=== PATIENT | female | born 1960 | race Caucasian/White ===

== ENCOUNTER 2017-03-03 12:16 | Emergency (ER) | payer OTHER ==
[2017-03-03 12:22] VITALS: BP 155/78; PULSE 77; TEMP 97.9; BMI 34.7
--- NOTE | 2017-03-03 16:51 | PDOC ---
History of Present Illness - General Chief Complaint: Injury Stated Complaint: FALL/ SWOLLEN RT ARM Time Seen by Provider: 03/03/17 13:57 Past History - Past Medical History Allergies/Adverse Reactions: Allergies Allergy/AdvReac Type Severity Reaction Status Date / Time levofloxacin [From Levaquin] Allergy Severe Hives,blist Verified 03/03/17 12:22 ers Penicillins Allergy Severe hives,blist Verified 03/03/17 12:22 ers Sulfa (Sulfonamide Allergy Severe Hives,blist Verified 03/03/17 12:22 Antibiotics) ers Home Medications: Ambulatory Orders Alprazolam 1 mg PO TID PRN 08/07/16 Aspirin [Aspirin EC] 81 mg PO DAILY 08/07/16 Metformin HCl [Glucophage -] 500 mg PO DAILY 08/07/16 Metoprolol Succinate [Toprol Xl -] 25 mg PO DAILY 08/07/16 Lisinopril/Hydrochlorothiazide [Lisinopril-Hctz 20-12.5 mg Tab] 1 each PO DAILY 10/28/16 Methadone [Dolophine -] 26 mg PO DAILY@0600 MDD 1tab 10/28/16 Anemia: No Asthma: No Cancer: No Cardiac Disorders: Yes ([place]) CVA: Yes (2008 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) CHF: No Dementia: No Diabetes: Yes GI Disorders: No Disorders: No HTN: Yes Hypercholesterolemia: No Liver Disease: Yes (HEPATITIS C) Seizures: No Thyroid Disease: No - Surgical History Abdominal Surgery: No Appendectomy: No Cardiac Surgery: No Cholecystectomy: No Gastric Stapling: No GI Surgery: No Lung Surgery: No Neurologic Surgery: No Orthopedic Surgery: No - Immunization History Immunization Up to Date: Yes - Psycho/Social/Smoking Cessation Hx Anxiety: No Suicidal Ideation: No Smoking Status: Yes Smoking History: Current some day smoker Have you smoked in the past 12 months: Yes Number of Cigarettes Smoked Daily: 4 Cigars Per Day: 5 Information on smoking cessation initiated: Yes 'Breaking Loose' booklet given: 03/03/17 Hx Alcohol Use: No Drug/Substance Use Hx: No Substance Use Type: Alcohol Hx Substance Use Treatment: No *Physical Exam - Vital Signs Last Vital Signs Temp Pulse Resp BP Pulse Ox 97.9 F 77 18 155/78 97 03/03/17 12:19 03/03/17 12:19 03/03/17 12:19 03/03/17 12:19 03/03/17 12:19 *DC/Admit/Observation/Transfer Diagnosis at time of Disposition: Eloped - Discharge Dispostion Disposition: ELOPED - Referrals Referrals: Winston Trotter MD [Primary Care Provider] - - Patient Instructions - Post Discharge Activity
== END 2017-03-03 16:16 | disposition left against medical advice (07) ==
LOC: JER 12:16 → JERFT 12:16 → JER 16:16
DX: Z53.21 Procedure and treatment not carried out due to patient leaving prior to being seen by health care provider (principal)
CPT/HCPCS: 99281-25

== ENCOUNTER 2017-08-07 12:35 | Observation (INO) | payer OTHER ==
--- NOTE | 2017-08-07 13:04 | PDOC ---
History of Present Illness - General History Source: Patient Exam Limitations: No Limitations - History of Present Illness Initial Comments: 08/07/17 13:51 The patient is a 57 year old female, with significant past medical history of chronic sciatica, peripheral neuropathy, CVA (05/01/2017), AL (05/2016), and hypertension, who presents BIBA s/p overdose after ingesting the contents of a 50microgram fentanyl patch at 10:45 this morning. Her daughter found her unresponsive and called the ambulance. EMT administered 2 mg narcan intranasally in field. The patient explains that she had someone coming over to take a look at kittens that she had for sale, but had intense back pain. She did not have the patience to place the patch on her skin because she also had to shower before her guest arrived. She then drank the contents of the fentanyl patch (did not ingest the patch itself). She was given the fentanyl patch from her friend, it was not prescribed by a doctor. She notes that she felt diaphoretic and had 1 episode of bilious vomiting this morning prior to taking the fentanyl medication. At this moment she has some chest tightness. She states that these symptoms are similar to those she experienced in the past when she had an AL. Denies fever, chills, nausea, vomiting. Denies abdominal pain. Denies SOB. Allergies: Penicillin, sulfa, levofloxacin Social Hx: tobacco use. PCP: Dr. Winston Dickerson <Esther Chavez - Last Filed: 08/07/17 15:55> <Merle Vega - Last Filed: 08/07/17 16:08> - General Chief Complaint: Overdose Stated Complaint: OVERDOSE Time Seen by Provider: 08/07/17 12:56 Past History <Esther Chavez - Last Filed: 08/07/17 15:55> - Past Medical History Anemia: No Asthma: No Cancer: No Cardiac Disorders: Yes ([place]) CVA: Yes (2008 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) CHF: No Dementia: No Diabetes: Yes GI Disorders: No Disorders: No HTN: Yes Hypercholesterolemia: No Liver Disease: Yes (HEPATITIS C) Seizures: No Thyroid Disease: No - Surgical History Abdominal Surgery: No Appendectomy: No Cardiac Surgery: No Cholecystectomy: No Gastric Stapling: No GI Surgery: No Lung Surgery: No Neurologic Surgery: No Orthopedic Surgery: No - Immunization History Immunization Up to Date: Yes - Psycho/Social/Smoking Cessation Hx Anxiety: No Suicidal Ideation: No Smoking Status: Yes Smoking History: Current every day smoker Have you smoked in the past 12 months: Yes Number of Cigarettes Smoked Daily: 4 Cigars Per Day: 5 Information on smoking cessation initiated: No 'Breaking Loose' booklet given: 03/03/17 Hx Alcohol Use: No Drug/Substance Use Hx: No (denies) Substance Use Type: Alcohol Hx Substance Use Treatment: No <Merle Vega - Last Filed: 08/07/17 16:08> - Past Medical History Allergies/Adverse Reactions: Allergies Allergy/AdvReac Type Severity Reaction Status Date / Time levofloxacin [From Levaquin] Allergy Severe Hives,blist Verified 08/07/17 13:00 ers Penicillins Allergy Severe hives,blist Verified 08/07/17 13:00 ers Sulfa (Sulfonamide Allergy Severe Hives,blist Verified 08/07/17 13:00 Antibiotics) ers Home Medications: Ambulatory Orders Alprazolam 1 mg PO TID PRN 08/07/16 Aspirin [Aspirin EC] 81 mg PO DAILY 08/07/16 Metformin HCl [Glucophage -] 500 mg PO DAILY 08/07/16 Metoprolol Succinate [Toprol Xl -] 50 mg PO DAILY 08/07/16 Sertraline HCl [Zoloft -] 50 mg PO DAILY 08/07/17 Review of Systems - Review of Systems Able to Perform ROS?: Yes Comments:: 08/07/17 13:51 GENERAL/CONSTITUTIONAL: +sweats. No fever or chills. No weakness. HEAD, EYES, EARS, NOSE AND THROAT: No change in vision. No ear pain or discharge. No sore throat. GASTROINTESTINAL: +nausea, vomiting. No diarrhea or constipation. GENITOURINARY: No dysuria, frequency, or change in urination. CARDIOVASCULAR:+chest tightness. No shortness of breath. RESPIRATORY: No cough, wheezing, or hemoptysis. MUSCULOSKELETAL: No joint or muscle swelling or pain. No neck or back pain. SKIN: No rash NEUROLOGIC: +LOC. No headache, vertigo, or change in strength/sensation. ENDOCRINE: No increased thirst. No abnormal weight change. HEMATOLOGIC/LYMPHATIC: No anemia, easy bleeding, or history of blood clots. ALLERGIC/IMMUNOLOGIC: No hives or skin allergy. <Esther Chavez - Last Filed: 08/07/17 15:55> *Physical Exam - Vital Signs Last Vital Signs Temp Pulse Resp BP Pulse Ox 98.9 F 100 H 16 152/97 100 08/07/17 12:50 08/07/17 13:34 08/07/17 13:34 08/07/17 13:34 08/07/17 13:36 - Physical Exam Comments: 08/07/17 13:51 Constitutional: Awake, alert, oriented. No acute distress. Head: Normocephalic. Atraumatic Eyes: PERRL. EOMI. Conjunctivae are not pale. ENT: Mucous membranes are moist and intact. Posterior pharynx without exudates or erythema. Uvula midline. Neck: Supple. Full ROM. No lymphadenopathy. Cardiovascular: +tachycardic. Regular rhythm. S1, S2 regular. Distal pulses are 2+ and symmetric. Pulmonary/Chest: No evidence of respiratory distress. Clear to auscultation bilaterally No wheezing, rales or rhonchi. Abdominal: Soft and non-distended. There is no tenderness. No rebound, guarding or rigidity. No organomegaly. No palpable masses. Good bowel sounds. Back: No CVA tenderness. Musculoskeletal: No edema. No cyanosis. No clubbing. Full range of motion in all extremities. Nocalf tenderness. Radial/pedal pulses are intact and 2+ bilaterally Skin: +diaphoretic. Skin is warm. No petechiae. No purpura. Neurological: Alert and oriented to person, place, and time. Cranial nerves II -XII are grossly intact. Normal speech. Strength is grossly symmetric. No sensory deficits. Psychiatric: Good eye contact. Normal interaction, affect and behavior. <Esther Chavez - Last Filed: 08/07/17 15:55> - Vital Signs Last Vital Signs Temp Pulse Resp BP Pulse Ox 98.9 F 110 H 18 158/101 95 08/07/17 12:50 08/07/17 12:50 08/07/17 12:50 08/07/17 12:50 08/07/17 12:50 <Merle Vega - Last Filed: 08/07/17 16:08> Heart Score/ECG Review - History History: Moderately suspicious - Electrocardiogram EKG: Normal - Age Age: 45-65 - Risk Factors Risk Factors Heart Score: Yes Hx Hypertension, Yes Hx Diabetes Based on the list above the patient has:: >/=3 risk factors or Hx atherosclerotic disease - Troponin Troponin: </= normal limit - Score Heart Score - Total: 4 - ECG Intrepretation Comment:: 08/07/17 15:09 sinus tach at 108, nl axis, nl interval, qrs 106, qtc 482, no acute st/t wave findings <Merle Vega - Last Filed: 08/07/17 16:08> ED Treatment Course - LABORATORY CBC & Chemistry Diagram: 08/07/17 13:23 08/07/17 13:23 - ADDITIONAL ORDERS Additional order review: 08/07/17 13:23 RBC 4.47 MCV 92.1 MCHC 33.4 RDW 13.7 MPV 7.8 Neutrophils % 79.3 D Lymphocytes % 13.2 D Monocytes % 7.0 Eosinophils % 0.2 D Basophils % 0.3 - RADIOLOGY Radiograph Interpretation: 08/07/17 14:15 EXAM#: TYPE/EXAM: RESULT: [id number] RAD/CHEST X-RAY PORTABLE* Chest: Shortness of breath. Since the prior exam of 06/17/2016, there is a less prominent mediastinum with clear lungs and sharp angles. The bones and soft tissues are intact. Impression: No acute pathology. Reported By: Pablo Savage MD 08/07/17 7758 - Medications Given in the ED: ED Medications Discontinued Medications Generic Name Dose Route Start Last Admin Trade Name Aleida PRN Reason Stop Dose Admin Ondansetron HCl 4 mg 08/07/17 13:10 08/07/17 13:34 Zofran Injection IVPUSH 08/07/17 13:11 4 mg ONCE ONE Administration Sodium Chloride 1,000 ml 08/07/17 13:10 08/07/17 13:33 Normal Saline - IV 08/07/17 13:11 1,000 ml ONCE ONE Administration <Esther Chavez - Last Filed: 08/07/17 15:55> - LABORATORY CBC & Chemistry Diagram: 08/07/17 13:23 08/07/17 13:23 <Merle Vega - Last Filed: 08/07/17 16:08> Medical Decision Making - Medical Decision Making 08/07/17 13:52 Poison control was called at 1:06pm Dr. Alexander Trammell. Dr. Vega spoke with the fellow, Dr. Trammell, regarding the patient's care. <Esther Chavez - Last Filed: 08/07/17 15:55> - Medical Decision Making 08/07/17 14:05 a/p: 57yo female with fentanyl OD -drank fluid from 50mcg/hr fentanyl patch -narcan given by medics -also with chest tightness and nausea this am, hx of cad -labs -ekg -cxr -monitor -prn narcan -will need at least 24 hour monitoring for resp suppression 08/07/17 14:07 re-eval: pt awake. tolerated activated charcoal. no further narcan needed at this time. will continue to monitor 08/07/17 15:08 re-eval: no cp at this time. pt sleepy but arousable. speaks with clear sentences. pupils 3mm. labs reviewed. will need admission for fentanyl od and cp. 08/07/17 15:08 dr. dickerson admits to [facility]. 08/07/17 16:08 case discussed with hospitalist, accepts admission to [facility]. pt updated on labs, imaging, ekg, pt agrees to stay for further eval. <Merle Vega - Last Filed: 08/07/17 16:08> *DC/Admit/Observation/Transfer <Esther Chavez - Last Filed: 08/07/17 15:55> - Discharge Dispostion Admit: Yes - Attestations Physician Attestion: 08/07/17 15:53 I, Dr. Merle Vega, DO, attest that this document has been prepared under my direction and personally reviewed by me in its entirety. I further attest, that it accurately reflects all work, treatment, procedures and medical decision -making performed by me. <Merle Vega - Last Filed: 08/07/17 16:08> Diagnosis at time of Disposition: Chest pain, Accidental fentanyl overdose - Discharge Dispostion Condition at time of disposition: Guarded - Referrals Referrals: Winston Dickerson MD [Primary Care Provider] -
[2017-08-07] MEDS ORDERED: NALOXONE HCL 0.4 MG/ML VIAL IVPUSH PRN (13:10)
[2017-08-07] MEDS ORDERED: ONDANSETRON 4 MG/2 ML VIAL IVPUSH ONE (13:10)
[2017-08-07] MEDS ORDERED: SODIUM CHLORIDE 0.9% 1000 ML INFUS.BAG IV ONE (13:10)
[2017-08-07] MEDS ORDERED: ONDANSETRON 4 MG/2 ML VIAL ONE ×2 (13:17→14:01)
[2017-08-07 13:38] LABS: BASOPHIL 0.3 % (0-2.0); EOSINOPHIL 0.2 % (0-4.5); MCH 30.8 pg (25.7-33.7); MCHC 33.4 g/dl (32.0-36.0); MEAN CELL VOLUME 92.1 fl (80-96); MEAN PLT VOLUME 7.8 fl (7.5-11.1); NEUTROPHILS 79.3 % (42.8-82.8); PLATELET COUNT 252 K/MM3 (134-434); RDW 13.7 % (11.6-15.6); WHITE BLOOD COUNT 15.4 K/mm3 (4.0-10.0)
[2017-08-07 13:49] LABS: INR 1.13 (0.82-1.09); PROTHROMBIN TIME (PATIENT) 12.5 SEC (9.98-11.88)
[2017-08-07 13:52] LABS: ACTIVATED PTT 27.9 SECONDS (26.9-34.4)
[2017-08-07] MEDS ORDERED: ACTIVATED CHARCOAL 260 MG CAPSULE PO ONE (13:55)
[2017-08-07] MEDS ORDERED: CHARCOAL/WATER SOLUTION 25 GM/120 ML TUBE ONE (14:00)
[2017-08-07 14:06] LABS: ALBUMIN 3.8 g/dl (3.4-5.0); ANION GAP 11 (8-16); BILIRUBIN,TOTAL 0.3 mg/dL (0.2-1.0); CALCIUM 9.2 mg/dL (8.5-10.1); CO2 25 mmol/L (21-32); CPK 83 IU/L (26-192); GLUCOSE,RANDOM 190 mg/dL (74-106); MAGNESIUM 2.1 mg/dL (1.8-2.4); SGOT/AST 11 U/L (15-37); SGPT/ALT 13 U/L (12-78); TOT PROT 7.6 g/dl (6.4-8.2)
[2017-08-07 14:09] LABS: ALK PHOS 80 U/L (45-117); TROPONIN I < 0.02 ng/ml (0.00-0.05)
[2017-08-07 14:24] LABS: SALICYLATE < 4.0 mg/dl (0.0-30.0)
[2017-08-07] MEDS ORDERED: ONDANSETRON 4 MG/2 ML VIAL IVPB PRN (16:46)
[2017-08-07] MEDS ORDERED: ALPRAZolam 2 MG TABLET PO PRN (16:53)
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
--- NOTE | 2017-08-07 17:02 | PN ---
Teaching Attending Note Name of Resident: Zaki Lopes ATTENDING PHYSICIAN STATEMENT I saw and evaluated the patient. I reviewed the resident's note and discussed the case with the resident. I agree with the resident's findings and plan as documented. SUBJECTIVE: OBJECTIVE: Last Vital Signs Temp Pulse Resp BP Pulse Ox 98.7 F 89 16 110/70 98 08/07/17 16:03 08/07/17 16:03 08/07/17 16:03 08/07/17 16:03 08/07/17 16:03 ASSESSMENT AND PLAN: The patient is a 57 year old female with significant past medical history of HTN , DM2, CAD, CVA (05/01/2017) and chronic pain secondary to sciatica and peripheral neuropathy, who presented to the emergency department after she ingested the contents of a 50microgram fentanyl patch at 10:45 this morning. She took the medication orally under the assumption that this was kevin correct way to use it. It was given to her by a friend. She denies suicide attempt. Her daughter found her unresponsive and called the ambulance. EMT administered 2 mg narcan intranasally in field. Prior to taking the medication she reported an episode of nausea, vomiting and diaphoresis. After regaining consciousness she reported mild chest pressure. # OVERDOSE She is fully awake and alert Ingested Fentanyl has a rapid onset and short duration Given the timing of the ingestion she is at low risk of further sedation Will monitor closely #Chest Pain EKG was non-ischemic 1st troponin negative GIven that she was found unresponsive, hypoxia prompting ACS is possible Will trend cardiac enzymes ASA Continue home meds See resident note for full details
[2017-08-07 19:25] LABS: URINE APPEARANCE SLCLOUDY; URINE BILIRUBIN NEGATIVE (NEGATIVE); URINE BLOOD 1+ (NEGATIVE); URINE COLOR YELLOW; URINE GLUCOSE (UA) NEGATIVE (NEGATIVE); URINE KETONE NEGATIVE (NEGATIVE); URINE LEUK ESTERASE NEGATIVE (NEGATIVE); URINE NITRITE NEGATIVE (NEGATIVE); URINE UROBILINOGEN NEGATIVE mg/dL (0.2-1.0)
[2017-08-07 19:41] LABS: URINE MARIJUANA THC NEGATIVE ng/ml (CUTOFF=50)
[2017-08-07 20:13] LABS: URINE PROTEIN 1+ (NEGATIVE)
[2017-08-07 20:14] LABS: URINE BACTERIA RARE /hpf (NONE SEEN); URINE HYALINE CAST 10 /lpf; URINE MUCUS FEW; URINE RBC 3 /hpf (0-3); URINE WBC 3 /hpf (3-5)
[2017-08-07] MEDS: INSULIN SLIDING SCALE (NOVOLOG) 1 VIAL SQ SCH (20:55)
[2017-08-07] MEDS: HYDROCHLOROTHIAZIDE 12.5 MG CAPSULE (FP) PO SCH (22:11)
[2017-08-07 22:26] VITALS: BMI 31.1
[2017-08-07] MEDS ORDERED: ACETAMINOPHEN 325 MG TABLET (FP) ONE (22:46)
[2017-08-07] MEDS: ACETAMINOPHEN 325 MG TABLET (FP) PO PRN (22:48)
[2017-08-08] MEDS: INSULIN SLIDING SCALE (NOVOLOG) 1 VIAL SQ SCH ×2 (06:06→11:00)
[2017-08-08] MEDS: ACETAMINOPHEN 325 MG TABLET (FP) PO PRN (06:36)
[2017-08-08 06:40] LABS: EOSINOPHIL 0.7 % (0-4.5); MCH 30.3 pg (25.7-33.7); MCHC 32.9 g/dl (32.0-36.0); MEAN CELL VOLUME 92.1 fl (80-96); NEUTROPHILS 59.3 % (42.8-82.8); PLATELET COUNT 218 K/MM3 (134-434); RDW 13.8 % (11.6-15.6); WHITE BLOOD COUNT 10.6 K/mm3 (4.0-10.0)
[2017-08-08 07:07] LABS: ALBUMIN 3.3 g/dl (3.4-5.0); ALK PHOS 68 U/L (45-117); ANION GAP 4 (8-16); BILIRUBIN,TOTAL 0.4 mg/dL (0.2-1.0); CALCIUM 9.2 mg/dL (8.5-10.1); CO2 30 mmol/L (21-32); CREATININE 0.8 mg/dL (0.55-1.02); GLUCOSE,RANDOM 137 mg/dL (74-106); MAGNESIUM 1.9 mg/dL (1.8-2.4); PHOSPHOROUS 3.3 mg/dL (2.5-4.9); SGOT/AST 9 U/L (15-37); SGPT/ALT 13 U/L (12-78); TOT PROT 6.7 g/dl (6.4-8.2)
--- NOTE | 2017-08-08 07:13 | PN ---
Physical Exam: SUBJECTIVE: Patient seen and examined She has had no further chest pain She wants to go home She reaffirms lack of suicidal ideation / attempt She will take tylenol 500-1000mg as needed for pain to a maximum of 4 times daily She has an appointment with her PCO for next week OBJECTIVE: Vital Signs Period Temp Pulse Resp BP Sys/Hernández Pulse Ox Last 24 Hr 98.3 F-98.7 F 73-89 16-18 110-144/70-85 97-100 Well appearing Lungs CTAB Heart RRR Abdomen soft and non-tender Extremities without edema Laboratory Results - last 24 hr 08/07/17 08/07/17 08/07/17 19:15 19:15 21:45 WBC RBC Hgb Hct MCV MCH MCHC RDW Plt Count MPV Neutrophils % Lymphocytes % Monocytes % Eosinophils % Basophils % Sodium Potassium Chloride Carbon Dioxide Anion Gap BUN Creatinine Creat Clearance w eGFR POC Glucometer Random Glucose Calcium Phosphorus Magnesium Total Bilirubin AST ALT Alkaline Phosphatase Troponin I 0.07 H Total Protein Albumin Urine Color Yellow Urine Appearance Slcloudy Urine pH 5.0 Ur Specific [place] >= 1.030 H Urine Protein 1+ H Urine Glucose (UA) Negative Urine Ketones Negative Urine Blood 1+ H Urine Nitrite Negative Urine Bilirubin Negative Urine Urobilinogen Negative Urine RBC 3 Urine WBC 3 Ur Epithelial Cells Rare Urine Bacteria Rare Hyaline Casts 10 Urine Mucus Few Urine HCG, Qual Negative Opiates Screen Negative Methadone Screen Negative Barbiturate Screen Negative Phencyclidine Screen Negative Ur Amphetamines Screen Negative MDMA (Ecstasy) Screen Negative Benzodiazepines Screen Positive Cocaine Screen Negative U Marijuana (THC) Screen Negative 08/08/17 08/08/17 08/08/17 03:00 05:58 06:15 WBC 10.6 H D RBC 4.11 Hgb 12.4 D Hct 37.8 MCV 92.1 MCH 30.3 MCHC 32.9 RDW 13.8 Plt Count 218 MPV 8.0 Neutrophils % 59.3 D Lymphocytes % 27.3 D Monocytes % 12.7 H D Eosinophils % 0.7 D Basophils % 0.0 Sodium Potassium Chloride Carbon Dioxide Anion Gap BUN Creatinine Creat Clearance w eGFR POC Glucometer 150 Random Glucose Calcium Phosphorus Magnesium Total Bilirubin AST ALT Alkaline Phosphatase Troponin I 0.06 H Total Protein Albumin Urine Color Urine Appearance Urine pH Ur Specific [place] Urine Protein Urine Glucose (UA) Urine Ketones Urine Blood Urine Nitrite Urine Bilirubin Urine Urobilinogen Urine RBC Urine WBC Ur Epithelial Cells Urine Bacteria Hyaline Casts Urine Mucus Urine HCG, Qual Opiates Screen Methadone Screen Barbiturate Screen Phencyclidine Screen Ur Amphetamines Screen MDMA (Ecstasy) Screen Benzodiazepines Screen Cocaine Screen U Marijuana (THC) Screen 08/08/17 06:15 WBC RBC Hgb Hct MCV MCH MCHC RDW Plt Count MPV Neutrophils % Lymphocytes % Monocytes % Eosinophils % Basophils % Sodium 138 Potassium 3.5 Chloride 104 Carbon Dioxide 30 Anion Gap 4 L BUN 6 L D Creatinine 0.8 Creat Clearance w eGFR > 60 POC Glucometer Random Glucose 137 H D Calcium 9.2 Phosphorus 3.3 Magnesium 1.9 Total Bilirubin 0.4 D AST 9 L ALT 13 Alkaline Phosphatase 68 Troponin I Total Protein 6.7 Albumin 3.3 L Urine Color Urine Appearance Urine pH Ur Specific [place] Urine Protein Urine Glucose (UA) Urine Ketones Urine Blood Urine Nitrite Urine Bilirubin Urine Urobilinogen Urine RBC Urine WBC Ur Epithelial Cells Urine Bacteria Hyaline Casts Urine Mucus Urine HCG, Qual Opiates Screen Methadone Screen Barbiturate Screen Phencyclidine Screen Ur Amphetamines Screen MDMA (Ecstasy) Screen Benzodiazepines Screen Cocaine Screen U Marijuana (THC) Screen Active Medications Generic Name Dose Route Start Last Admin Trade Name Freq PRN Reason Stop Dose Admin Acetaminophen 325 mg 08/07/17 22:40 08/08/17 06:36 Tylenol - PO 325 mg Q6H PRN Administration FEVER OR PAIN Alprazolam 1 mg 08/07/17 16:53 Xanax - PO TID PRN ANXIETY Aspirin 81 mg 08/08/17 10:00 Ecotrin - PO DAILY [facility] Hydrochlorothiazide 12.5 mg 08/07/17 22:00 08/07/17 22:11 Hctz - PO 12.5 mg BID GIULIA Administration Insulin Aspart 1 vial 08/07/17 17:15 08/08/17 06:06 Novolog Vial Sliding Scale - SQ Not Given TIDAC [facility] Protocol Lisinopril 20 mg 08/08/17 10:00 Prinivil PO DAILY [facility] Metoprolol Succinate 50 mg 08/08/17 10:00 Toprol Xl - PO DAILY GIULIA Naloxone HCl 0.4 mg 08/07/17 13:10 Narcan - IVPUSH Q5M PRN SHORTNESS OF BREATH Ondansetron HCl 4 mg 08/07/17 16:46 Zofran Injection IVPB Q6H PRN NAUSEA Sertraline HCl 50 mg 08/08/17 10:00 Zoloft - PO DAILY [facility] ASSESSMENT/PLAN: The patient is a 57 year old female with significant past medical history of HTN , DM2, CAD, CVA (05/01/2017) and chronic pain secondary to sciatica and peripheral neuropathy, who presented to the emergency department after she ingested the contents of a 50microgram fentanyl patch at 10:45 yesterday morning. # OVERDOSE She has remained fully awake and alert She continues to deny suicidal ideation/attempt #Chest Pain EKG was non-ischemic Enzymes trended negative #Disposition Anticipate discharge later today Visit type - Emergency Visit Emergency Visit: Yes ED Registration Date: 08/07/17 Care time: The patient presented to the Emergency Department on the above date and was hospitalized for further evaluation of their emergent condition. - New Patient This patient is new to me today: No - Critical Care Critical Care patient: No - Discharge Referral Referred to [facility] Med P.C.: No
--- NOTE | 2017-08-08 08:27 | DS ---
Physical Examination Vital Signs: Vital Signs Temperature 99.0 F 08/08/17 06:00 Pulse Rate 77 08/08/17 06:00 Respiratory Rate 18 08/08/17 06:00 Blood Pressure 116/79 08/08/17 06:00 O2 Sat by Pulse Oximetry (%) 97 08/07/17 22:09 Findings/Remarks: See todays progress note for details The patient is a 57 year old female who was admitted yesterday after a Fentanyl ingestion. She initially complained of chest pain. EKG was non-ischemic, serial cardiac enzymes were negative and she remained chest pain free She denied suicide attempt She was counseled about the appropriate use of medications She will resume her home medications and follow up with her PCP. Labs: CBC, BMP 08/08/17 06:15 08/08/17 06:15 Discharge Summary Reason For Visit: CHEST PAIN Current Active Problems Accidental fentanyl overdose (Acute) Anxiety with depression (Acute) CAD (coronary artery disease) (Acute) Chest pain (Acute) DVT prophylaxis (Acute) Condition: Stable - Instructions Diet, Activity, Other Instructions: Take you medications as prescribed Follow up with your doctor this week and make sure they review the results of your hospitalization Return to the ER if you develop any new symptoms Take medications only as prescribed Referrals: Winston Trotter MD [Primary Care Provider] - Disposition: HOME - Home Medications Comprehensive Discharge Medication List: Ambulatory Orders Alprazolam 1 mg PO TID PRN 08/07/16 Aspirin [Aspirin EC] 81 mg PO DAILY 08/07/16 Metformin HCl [Glucophage -] 500 mg PO DAILY 08/07/16 Metoprolol Succinate [Toprol Xl -] 50 mg PO DAILY 08/07/16 Hydrochlorothiazide [Hctz -] 12.5 mg PO BID 08/07/17 Lisinopril [Prinivil] 20 mg PO DAILY 08/07/17 Sertraline HCl [Zoloft -] 50 mg PO DAILY 08/07/17
[2017-08-08] MEDS: HYDROCHLOROTHIAZIDE 12.5 MG CAPSULE (FP) PO SCH (09:27)
[2017-08-08] MEDS ORDERED: METOPROLOL SUCCINATE 50 MG TAB.SR.24H (FP) PO SCH (10:00)
[2017-08-08] MEDS ORDERED: LISINOPRIL 20 MG TABLET (FP) PO SCH (10:00)
[2017-08-08] MEDS ORDERED: ASPIRIN COATED 81 MG TABLET.EC PO SCH (10:00)
[2017-08-08] MEDS ORDERED: SERTRALINE HCL 50 MG TABLET (FP) PO SCH (10:00)
[2017-08-08 10:50] VITALS: TEMP 98.3
[2017-08-08 11:56] VITALS: BP 115/59; PULSE 78
--- NOTE | 2017-08-09 16:41 | EKG ---
Test Reason : Blood Pressure : / mmHG Vent. Rate : 108 BPM Atrial Rate : 108 BPM P-R Int : 168 ms QRS Dur : 106 ms QT Int : 360 ms P-R-T Axes : 066 -25 058 degrees QTc Int : 482 ms SINUS TACHYCARDIA OTHERWISE NORMAL ECG WHEN COMPARED WITH ECG OF 16-JUN-2016 06:47, T WAVE INVERSION NO LONGER EVIDENT IN INFERIOR LEADS T WAVE INVERSION NO LONGER EVIDENT IN ANTEROLATERAL LEADS VENT. RATE HAS INCREASED Confirmed by KATELYNN SPARKS MD ([id number]) on 08/09/2017 4:40:44 PM Referred By: Confirmed By:KATELYNN SPARKS MD
== END 2017-08-08 12:02 | disposition home or self-care (01) ==
LOC: JER 12:35 → INTOOBSV 15:53 → UNDOADMOB 15:53 → JERBED 15:53 → J4S 20:47 → JERBED 20:47 → UNDODISOB 08-08 12:02
PROVIDERS: ADMIT Internal Medicine; ATTEND Internal Medicine
PROC: 3E033GC Introduction of Other Therapeutic Substance into Peripheral Vein, Percutaneous Approach (ICD-10-PCS; principal; 2017-08-08)
DX: T40.4X1A Poisoning by other synthetic narcotics, accidental (unintentional), initial encounter (principal); Y92.038 Other place in apartment as the place of occurrence of the external cause; I25.10 Atherosclerotic heart disease of native coronary artery without angina pectoris; I10 Essential (primary) hypertension; E11.9 Type 2 diabetes mellitus without complications; Z79.84 Long term (current) use of oral hypoglycemic drugs; M54.30 Sciatica, unspecified side; G62.9 Polyneuropathy, unspecified; B18.2 Chronic viral hepatitis C; Z86.73 Personal history of transient ischemic attack (TIA), and cerebral infarction without residual deficits; F17.210 Nicotine dependence, cigarettes, uncomplicated
CPT/HCPCS: 36415; 71010-TC; 80053; 80307; 81003; 81015; 83690; 83735; 83880; 84100; 84484; 84703; 85025; 85610; 85730; 93005; 93010; 99285-25; G0378

== ENCOUNTER 2017-12-14 17:48 | Observation (INO) | payer OTHER ==
--- NOTE | 2017-12-14 18:02 | PDOC ---
Attending Attestation - Resident Resident Name: Nevin Marino - ED Attending Attestation I have performed the following: I have examined & evaluated the patient, The case was reviewed & discussed with the resident, I agree w/resident's findings & plan, Exceptions are as noted - HPI HPI: 12/14/17 18:00 57 yo female found in passenger seat in car w seizure activity by first responders, When EMS arrived the pt was conversant but stating she didn't feel right. PMH CVA,Diabetes PCP Dr Fuentes - Physicial Exam PE: 12/14/17 18:02 wnwd 57 yo female BIBA for AMS and reported seizure activity upon arrival she seemed slow to respond to verbal inquiries but did respond with the correct in formation head ncat neck supple lungs ctab/l cvs [id number] abd nontender extremities no deformities neuro moving all extremities,no facial droop,conversant but with odd affect - Medical Decision Making 12/14/17 22:47 pt had witnessed complex seizure and was given ativan 1 mg IVP and loaded with keppra 12/15/17 02:21 pt ADMITTED
[2017-12-14 18:50] LABS: BASO % 0.5 % (0-2.0); EOS % 1.3 % (0-4.5); HEMATOCRIT 37.1 % (32.4-45.2); HEMOGLOBIN 11.7 GM/dL (10.7-15.3); LYMPH % 25.8 % (8-40); MCH 29.4 pg (25.7-33.7); MCHC 31.6 g/dl (32.0-36.0); MEAN CELL VOLUME 93.2 fl (80-96); MEAN PLT VOLUME 7.7 fl (7.5-11.1); MONO % 6.7 % (3.8-10.2); NEUT % 65.7 % (42.8-82.8); PLATELET COUNT 196 K/MM3 (134-434); RBC 3.98 M/mm3 (3.60-5.2); RDW 14.8 % (11.6-15.6); WHITE BLOOD COUNT 10.2 K/mm3 (4.0-10.0)
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
[2017-12-14 20:07] LABS: ALBUMIN 3.5 g/dl (3.4-5.0); ANION GAP 10 (8-16); BLOOD UREA NITROGEN 9 mg/dL (7-18); CALCIUM 8.8 mg/dL (8.5-10.1); CHLORIDE 105 mmol/L (98-107); CO2 26 mmol/L (21-32); GLUCOSE,RANDOM 157 mg/dL (74-106); POTASSIUM 4.1 mmol/L (3.5-5.1); SGPT/ALT 16 U/L (12-78); SODIUM 141 mmol/L (136-145)
[2017-12-14 20:13] LABS: ALK PHOS 65 U/L (45-117); BILIRUBIN,TOTAL 0.4 mg/dL (0.2-1.0); CREATININE 0.9 mg/dL (0.55-1.02); SGOT/AST 16 U/L (15-37); TOT PROT 7.1 g/dl (6.4-8.2)
[2017-12-14] MEDS ORDERED: SODIUM CHLORIDE 0.9% 1000 ML INFUS.BAG IV ONE (20:19)
[2017-12-14 22:12] LABS: BASO % 0.6 % (0-2.0); EOS % 0.7 % (0-4.5); HEMATOCRIT 39.6 % (32.4-45.2); HEMOGLOBIN 12.7 GM/dL (10.7-15.3); LYMPH % 23.1 % (8-40); MCH 30.6 pg (25.7-33.7); MCHC 32.2 g/dl (32.0-36.0); MEAN CELL VOLUME 95.1 fl (80-96); MEAN PLT VOLUME 8.1 fl (7.5-11.1); MONO % 6.4 % (3.8-10.2); NEUT % 69.2 % (42.8-82.8); PLATELET COUNT 195 K/MM3 (134-434); RBC 4.16 M/mm3 (3.60-5.2); RDW 15.2 % (11.6-15.6); WHITE BLOOD COUNT 9.3 K/mm3 (4.0-10.0)
[2017-12-14 22:20] LABS: ALBUMIN 3.7 g/dl (3.4-5.0); ALK PHOS 65 U/L (45-117); BLOOD UREA NITROGEN 8 mg/dL (7-18); CALCIUM 8.6 mg/dL (8.5-10.1); CO2 31 mmol/L (21-32); CREATININE 0.8 mg/dL (0.55-1.02); GLUCOSE,RANDOM 131 mg/dL (74-106); TOT PROT 7.2 g/dl (6.4-8.2)
[2017-12-14 22:23] LABS: URINE APPEARANCE CLEAR; URINE BILIRUBIN NEGATIVE (NEGATIVE); URINE BLOOD NEGATIVE (NEGATIVE); URINE COLOR LTYELLOW; URINE GLUCOSE (UA) NEGATIVE (NEGATIVE); URINE KETONE NEGATIVE (NEGATIVE); URINE LEUK ESTERASE NEGATIVE (NEGATIVE); URINE NITRITE NEGATIVE (NEGATIVE); URINE PROTEIN NEGATIVE (NEGATIVE); URINE UROBILINOGEN NEGATIVE mg/dL (0.2-1.0)
[2017-12-14 22:36] LABS: ANION GAP 6 (8-16); BILIRUBIN,TOTAL 0.2 mg/dL (0.2-1.0); CHLORIDE 104 mmol/L (98-107); POTASSIUM 4.5 mmol/L (3.5-5.1); SGOT/AST 14 U/L (15-37); SGPT/ALT 17 U/L (12-78); SODIUM 141 mmol/L (136-145)
[2017-12-14 22:37] LABS: URINE AMPHETAMINES NEGATIVE ng/ml (CUTOFF=500); URINE BARBITURATES NEGATIVE ng/ml (CUTOFF=200)
[2017-12-14 22:38] LABS: COCAINE, UR NEGATIVE ng/ml (CUTOFF=300); METHADONE, UR NEGATIVE ng/ml (CUTOFF=300); OPIATES, URI POSITIVE ng/ml (CUTOFF=300); PHENCYCLIDINE,URINE NEGATIVE ng/ml (CUTOFF=25); URINE BENZODIAZEPINES POSITIVE ng/ml (CUTOFF=200)
[2017-12-14] MEDS ORDERED: LORazepam 2 MG/ML SDV VIAL ONE (22:42)
[2017-12-14] MEDS ORDERED: levETIRAcetam 500 MG/5 ML INJECTION VIAL IVPB STA (22:44)
[2017-12-14] MEDS ORDERED: levETIRAcetam 500 MG/5 ML INJECTION VIAL IVPB ONE ×2 (22:47→22:48)
[2017-12-15] MEDS ORDERED: LORazepam 0.5 MG TABLET PO PRN (01:20)
[2017-12-15] MEDS: DEXTROSE 5%-0.45% SALINE 1,000 ML IV SCH (01:41)
[2017-12-15 07:27] LABS: ALBUMIN 3.5 g/dl (3.4-5.0); ANION GAP 7 (8-16); BLOOD UREA NITROGEN 7 mg/dL (7-18); CALCIUM 8.1 mg/dL (8.5-10.1); CHLORIDE 101 mmol/L (98-107); CO2 30 mmol/L (21-32); CREATININE 0.8 mg/dL (0.55-1.02); GLUCOSE,RANDOM 194 mg/dL (74-106); POTASSIUM 4.3 mmol/L (3.5-5.1); SGOT/AST 13 U/L (15-37); SGPT/ALT 15 U/L (12-78); SODIUM 138 mmol/L (136-145)
[2017-12-15 07:29] LABS: ALK PHOS 60 U/L (45-117); BILIRUBIN,TOTAL 0.3 mg/dL (0.2-1.0); TOT PROT 6.8 g/dl (6.4-8.2)
[2017-12-15] MEDS ORDERED: metFORMIN HCL 500 MG TABLET (FP) ONE (07:30)
[2017-12-15 07:34] LABS: BASO % 0.4 % (0-2.0); EOS % 0.2 % (0-4.5); HEMATOCRIT 35.4 % (32.4-45.2); HEMOGLOBIN 11.2 GM/dL (10.7-15.3); LYMPH % 19.5 % (8-40); MCH 29.6 pg (25.7-33.7); MCHC 31.5 g/dl (32.0-36.0); MEAN CELL VOLUME 93.9 fl (80-96); MONO % 9.2 % (3.8-10.2); NEUT % 70.7 % (42.8-82.8); PLATELET COUNT 180 K/MM3 (134-434); RBC 3.77 M/mm3 (3.60-5.2); RDW 14.8 % (11.6-15.6); WHITE BLOOD COUNT 9.4 K/mm3 (4.0-10.0)
[2017-12-15] MEDS: metFORMIN HCL 500 MG TABLET (FP) PO SCH (07:35)
[2017-12-15] MEDS ORDERED: METOPROLOL SUCCINATE 50 MG TAB.SR.24H (FP) ONE (10:06)
[2017-12-15] MEDS ORDERED: HYDROCHLOROTHIAZIDE 25 MG TABLET (FP) ONE (10:06)
[2017-12-15] MEDS ORDERED: LISINOPRIL 20 MG TABLET (FP) ONE (10:07)
[2017-12-15] MEDS ORDERED: ASPIRIN COATED 81 MG TABLET.EC ONE (10:07)
[2017-12-15] MEDS: METOPROLOL SUCCINATE 50 MG TAB.SR.24H (FP) PO SCH (10:12)
[2017-12-15] MEDS: LISINOPRIL 20 MG TABLET (FP) PO SCH (10:12)
[2017-12-15] MEDS: HYDROCHLOROTHIAZIDE 12.5 MG CAPSULE (FP) PO SCH ×2 (10:12→23:15)
[2017-12-15] MEDS: ASPIRIN COATED 81 MG TABLET.EC PO SCH (10:13)
--- NOTE | 2017-12-15 12:44 | EKG ---
Test Reason : Blood Pressure : / mmHG Vent. Rate : 093 BPM Atrial Rate : 093 BPM P-R Int : 150 ms QRS Dur : 106 ms QT Int : 382 ms P-R-T Axes : 066 022 056 degrees QTc Int : 474 ms NORMAL SINUS RHYTHM INCOMPLETE RIGHT BUNDLE BRANCH BLOCK BORDERLINE ECG WHEN COMPARED WITH ECG OF 07-AUG-2017 12:58, INCOMPLETE RIGHT BUNDLE BRANCH BLOCK IS NOW PRESENT Confirmed by JANY HERNÁNDEZ, HARRIET ([id number]) on 12/15/2017 12:43:22 PM Referred By: Confirmed By:HARRIET CARMICHAEL MD
[2017-12-15 13:12] VITALS: BMI 31.7
--- NOTE | 2017-12-15 15:21 | CONSULT ---
Consult - text type - Consultation Consultation Note: NEUROLOGY CONSULTATION is greatly appreciated: Events reviewed and patient examined in the ED @ 9:00. This 57 yo woman lives alone. PMH sig for HTN, DM, depression, anxiety and episodic headaches in the past with nausea and photophobia. On lisinopril, sertraline, metformin, HCTZ, metoprolol, and alprazolam (1 mg TID ). H/O a generalized seizure "in her 30's." Cannot recall any evaluation or Rx. Yesterday was driving home from shopping and had an unusual "out of body experience" which she had not previously experienced, but new she "had to get in the passenger seat." In fact, that is where she was found by police, lethargic and confused. Generalized tonic-clonic seizure was witnessed in the ED and the patient was given ativan and levetiracetam [address] of head (reviewed): reveals old right frontal encephalomalacia unchanged from prior CT's of 2016 and 2015. Suggesting old CVA Tox screen + for benzodiazepines AND Opioids FH is significant for seizures in her daughter (febrile and T/C as adult) and her 8 yo granddaughter and headaches in her daughter. BYRON: No head trauma. No bruits. Cor reg. Neck supple. NEURO: Sl sedated but Ox3. Normal speech. CN II-XII: Normal Motor: No drift or tremor. Normal strength , bulk tone and reflexes. Toes downdoing. Coord: No FTN dystaxia Sensory: Normal Gait: Deferred IMP: Normal exam Seizure disorder. Type uncertain. May be complex partial seizure with secondary generalization due to old right frontal lesion or a primarily generalized epilepsy as suggested by the + FH of seizures and association with migraines. SUGGEST: Continue levetiracetam 500 mg PO BID Agree with cardiac monitoring and cardiology evaluation Be surveillant for signs of benzodiazepine withdrawal (or continue chronic alprazolam Rx). MRI of the Brain (with and without contrast) Neuro f/u as out patient for EEG and monitdoring. Thank you very much, Alfonso Holt MD
--- NOTE | 2017-12-15 22:22 | HP ---
Admitting History and Physical - Admission History of Present Illness: Patient is a 57 y/o female with a PMH significant for HTN, diabetes, Hep C, CVA , depression and anxiety. Pt is unable to give clear details of events that happened. Pt remembers being in the car after shopping and next thing she knew the ambulance was there. She was BIBA for witnessed seizure. Passerby called 911 bc pt was unresponsive in the car. When the FD arrived it was reported that she was having a seizure. In the ER pt had ct scan head wc showed encephalomalacia. Pt's urine tox screen was positive for benzo's/opiods. - Past Medical History RECYCLER: Yes: Other (right optical embolic CVA with residual partial visual loss ) Cardiovascular: Yes: HTN Gastrointestinal: Yes: Diverticulosis Hepatobiliary: Yes: Hepatitis C Musculoskeletal: Yes: Chronic low back pain, Other (sciatica) Endocrine: Yes: Diabetes Mellitus - Past Surgical History Past Surgical History: Yes: Colonoscopy, Tonsillectomy - Smoking History Smoking history: Current every day smoker Have you smoked in the past 12 months: Yes Aproximately how many cigarettes per day: 4 - Alcohol/Substance Use Hx Alcohol Use: No History of Substance Use: reports: Heroin (snorted heroin in the past) - Social History ADL: Independent 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 History of Recent Travel: No Home Medications - Allergies Allergies/Adverse Reactions: Allergies Allergy/AdvReac Type Severity Reaction Status Date / Time levofloxacin [From Levaquin] Allergy Severe Hives,blist Verified 08/07/17 13:00 ers Penicillins Allergy Severe hives,blist Verified 08/07/17 13:00 ers Sulfa (Sulfonamide Allergy Severe Hives,blist Verified 08/07/17 13:00 Antibiotics) ers - Home Medications Home Medications: Ambulatory Orders Alprazolam 1 mg PO TID PRN 08/07/16 Aspirin [Aspirin EC] 81 mg PO DAILY 08/07/16 Metformin HCl [Glucophage -] 500 mg PO DAILY 08/07/16 Metoprolol Succinate [Toprol Xl -] 50 mg PO DAILY 08/07/16 Hydrochlorothiazide [Hctz -] 12.5 mg PO BID 08/07/17 Lisinopril [Prinivil] 20 mg PO DAILY 08/07/17 Sertraline HCl [Zoloft -] 50 mg PO DAILY 08/07/17 Family Disease History - Family Disease History Family History: Unremarkable Family Disease History: CA: Mother (d. ovarian cancer) Review of Systems - Review of Systems Constitutional: reports: No Symptoms Neck: reports: No Symptoms Cardiovascular: reports: No Symptoms Respiratory: reports: No Symptoms Gastrointestinal: reports: No Symptoms Physical Examination Vital Signs: Vital Signs Temperature 99.0 F 12/15/17 20:18 Pulse Rate 64 12/15/17 20:18 Respiratory Rate 18 12/15/17 20:18 Blood Pressure 96/49 12/15/17 20:18 O2 Sat by Pulse Oximetry (%) 99 12/15/17 20:18 Constitutional: Yes: No Distress Eyes: Yes: WNL HENT: Yes: WNL Neck: Yes: WNL, Supple Cardiovascular: Yes: WNL, Regular Rate and Rhythm Respiratory: Yes: WNL, Regular, CTA Bilaterally Gastrointestinal: Yes: WNL, Normal Bowel Sounds, Soft Musculoskeletal: Yes: WNL Extremities: Yes: WNL Edema: No Neurological: Yes: WNL, Alert, Oriented ...Motor Strength: WNL Labs: CBC, BMP 12/15/17 06:10 12/15/17 06:10 Problem List - Problems (1) Seizure Assessment/Plan: As per neuro Cont keppra MRI brain EEG as outpt as per neuro Code(s): R56.9 - UNSPECIFIED CONVULSIONS (2) Syncope Assessment/Plan: Due to seizure vs medications(urine positive for opoids/benzo) Cardio consult Check echo/carotid Pt does have h/o CVA Code(s): R55 - SYNCOPE AND COLLAPSE (3) Anxiety with depression Assessment/Plan: Psych consult Code(s): F41.8 - OTHER SPECIFIED ANXIETY DISORDERS (4) Diabetes type 2, controlled Assessment/Plan: Cont metformin Code(s): E11.9 - TYPE 2 DIABETES MELLITUS WITHOUT COMPLICATIONS Qualifiers: Diabetes mellitus complication status: with neurologic complications Diabetes mellitus complication detail: with autonomic neuropathy Diabetes mellitus retirement insulin use: without terminal carman use Qualified Code(s): E11.43 - Type 2 diabetes mellitus with diabetic autonomic (poly)neuropathy (5) Hepatitis C Code(s): B19.20 - UNSPECIFIED VIRAL HEPATITIS C WITHOUT HEPATIC COMA Qualifiers: Viral hepatitis chronicity: unspecified Hepatic coma status: without hepatic coma Qualified Code(s): B19.20 - Unspecified viral hepatitis C without hepatic coma (6) Hypertension Code(s): I10 - ESSENTIAL (PRIMARY) HYPERTENSION Qualifiers: Hypertension type: essential hypertension Qualified Code(s): I10 - Essential (primary) hypertension
[2017-12-16] MEDS: DEXTROSE 5%-0.45% SALINE 1,000 ML IV SCH (03:35)
[2017-12-16] MEDS: metFORMIN HCL 500 MG TABLET (FP) PO SCH (06:26)
[2017-12-16 07:50] LABS: BASO % 0.2 % (0-2.0); EOS % 0.6 % (0-4.5); HEMATOCRIT 33.9 % (32.4-45.2); HEMOGLOBIN 11.2 GM/dL (10.7-15.3); MCH 30.4 pg (25.7-33.7); MEAN CELL VOLUME 92.2 fl (80-96); MEAN PLT VOLUME 8.4 fl (7.5-11.1); MONO % 8.5 % (3.8-10.2); NEUT % 52.7 % (42.8-82.8); PLATELET COUNT 148 K/MM3 (134-434); RBC 3.68 M/mm3 (3.60-5.2); WHITE BLOOD COUNT 7.4 K/mm3 (4.0-10.0)
[2017-12-16 08:16] LABS: CHLORIDE 101 mmol/L (98-107); POTASSIUM 3.6 mmol/L (3.5-5.1); SODIUM 141 mmol/L (136-145)
[2017-12-16 08:23] LABS: ALBUMIN 3.3 g/dl (3.4-5.0); ALK PHOS 50 U/L (45-117); ANION GAP 7 (8-16); BILIRUBIN,TOTAL 0.5 mg/dL (0.2-1.0); BLOOD UREA NITROGEN 6 mg/dL (7-18); CALCIUM 8.1 mg/dL (8.5-10.1); CO2 33 mmol/L (21-32); CREATININE 0.7 mg/dL (0.55-1.02); GLUCOSE,RANDOM 87 mg/dL (74-106); SGOT/AST 11 U/L (15-37); SGPT/ALT 14 U/L (12-78); TOT PROT 6.4 g/dl (6.4-8.2)
--- NOTE | 2017-12-16 08:32 | CON.CARD ---
Cardiology Consult (text) - Consultation Consultation Note: Cardiology Consult Dictated IMP: 1. New onset seizures, witnessed 2. History of CVAs ( x2) 3. Factor V Leiden + (by patient report) 4. DM/HTN/Non-obstructive CAD 5. Mildly prolonged QTc (probably secondary to SSRI and opiates-- + in urine) REC: 1. Doubt arrhythmia, but prudent to observe on tele x 24 hours Keep K+ and Mg2+ normalized Avoid opiates. Monitor QTc Echo Carotid US 2. To complete Neuro eval including MRI brain. Thanks.
[2017-12-16] MEDS: ASPIRIN COATED 81 MG TABLET.EC PO SCH (09:45)
[2017-12-16] MEDS: LISINOPRIL 20 MG TABLET (FP) PO SCH (09:45)
[2017-12-16] MEDS: METOPROLOL SUCCINATE 50 MG TAB.SR.24H (FP) PO SCH (09:45)
[2017-12-16] MEDS: HYDROCHLOROTHIAZIDE 12.5 MG CAPSULE (FP) PO SCH ×2 (09:45→21:14)
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
--- NOTE | 2017-12-16 22:38 | PN ---
Progress Note, Physician History of Present Illness: No new complaints - Current Medication List Current Medications: Active Medications Aspirin (Ecotrin -) 81 mg PO DAILY [facility] Last Admin: 12/16/17 09:45 Dose: 81 mg Hydrochlorothiazide (Hctz -) 12.5 mg PO BID [facility] Last Admin: 12/16/17 21:14 Dose: 12.5 mg Dextrose/Sodium Chloride (D5-1/2ns -) 1,000 mls @ 75 mls/hr IV ASDIR [facility] Last Admin: 12/16/17 03:35 Dose: 75 mls/hr Lisinopril (Prinivil) 20 mg PO DAILY [facility] Last Admin: 12/16/17 09:45 Dose: 20 mg Lorazepam (Ativan -) 0.5 mg PO TID PRN PRN Reason: ANXIETY Metformin HCl (Glucophage -) 500 mg PO DAILY@0700 [facility] Last Admin: 12/16/17 06:26 Dose: 500 mg Metoprolol Succinate (Toprol Xl -) 50 mg PO DAILY [facility] Last Admin: 12/16/17 09:45 Dose: 50 mg - Objective Vital Signs: Vital Signs Temperature 98.0 F 12/16/17 17:00 Pulse Rate 60 12/16/17 17:00 Respiratory Rate 18 12/16/17 17:00 Blood Pressure 129/75 12/16/17 17:00 O2 Sat by Pulse Oximetry (%) 98 12/16/17 15:00 Constitutional: Yes: No Distress Neck: Yes: WNL, Supple Cardiovascular: Yes: WNL, Regular Rate and Rhythm Respiratory: Yes: WNL, Regular, CTA Bilaterally Gastrointestinal: Yes: WNL, Normal Bowel Sounds, Soft Labs: CBC, BMP 12/16/17 05:33 12/16/17 05:33 Problem List - Problems (1) Seizure Assessment/Plan: As per neuro Cont [facility] MRI brain pending and if normal then dc planning for am EEG as outpt as per neuro Code(s): R56.9 - UNSPECIFIED CONVULSIONS (2) Syncope Assessment/Plan: Due to seizure vs medications(urine positive for opoids/benzo) Work up has been negative Code(s): R55 - SYNCOPE AND COLLAPSE (3) Anxiety with depression Code(s): F41.8 - OTHER SPECIFIED ANXIETY DISORDERS (4) Diabetes type 2, controlled Code(s): E11.9 - TYPE 2 DIABETES MELLITUS WITHOUT COMPLICATIONS Qualifiers: Diabetes mellitus complication status: with neurologic complications Diabetes mellitus complication detail: with autonomic neuropathy Diabetes mellitus assisted insulin use: without assisted use Qualified Code(s): E11.43 - Type 2 diabetes mellitus with diabetic autonomic (poly)neuropathy (5) Hepatitis C Code(s): B19.20 - UNSPECIFIED VIRAL HEPATITIS C WITHOUT HEPATIC COMA Qualifiers: Viral hepatitis chronicity: unspecified Hepatic coma status: without hepatic coma Qualified Code(s): B19.20 - Unspecified viral hepatitis C without hepatic coma (6) Hypertension Code(s): I10 - ESSENTIAL (PRIMARY) HYPERTENSION Qualifiers: Hypertension type: essential hypertension Qualified Code(s): I10 - Essential (primary) hypertension
[2017-12-17] MEDS: metFORMIN HCL 500 MG TABLET (FP) PO SCH (06:38)
--- NOTE | 2017-12-17 08:44 | PN ---
Progress Note, Physician Chief Complaint: no new complaints MRI brain done, result pending TELE: NSR, periods sinus curtis during sleep - Current Medication List Current Medications: Active Medications Aspirin (Ecotrin -) 81 mg PO DAILY [facility] Last Admin: 12/16/17 09:45 Dose: 81 mg Hydrochlorothiazide (Hctz -) 12.5 mg PO BID [facility] Last Admin: 12/16/17 21:14 Dose: 12.5 mg Dextrose/Sodium Chloride (D5-1/2ns -) 1,000 mls @ 75 mls/hr IV ASDIR [facility] Last Admin: 12/16/17 03:35 Dose: 75 mls/hr Lisinopril (Prinivil) 20 mg PO DAILY [facility] Last Admin: 12/16/17 09:45 Dose: 20 mg Lorazepam (Ativan -) 0.5 mg PO TID PRN PRN Reason: ANXIETY Metformin HCl (Glucophage -) 500 mg PO DAILY@0700 [facility] Last Admin: 12/17/17 06:38 Dose: 500 mg Metoprolol Succinate (Toprol Xl -) 50 mg PO DAILY [facility] Last Admin: 12/16/17 09:45 Dose: 50 mg - Objective Vital Signs: Vital Signs Temperature 98.1 F 12/17/17 05:00 Pulse Rate 57 L 12/17/17 05:00 Respiratory Rate 20 12/17/17 05:00 Blood Pressure 104/54 12/17/17 05:00 O2 Sat by Pulse Oximetry (%) 97 12/17/17 05:49 Constitutional: Yes: Calm Eyes: Yes: Conjunctiva Clear Cardiovascular: Yes: Regular Rate and Rhythm Respiratory: Yes: CTA Bilaterally Gastrointestinal: Yes: Soft Edema: No Neurological: Yes: Alert, Oriented ...Motor Strength: WNL Labs: CBC, BMP 12/16/17 05:33 12/16/17 05:33 - ....Imaging Other: Image Reviewed Assessment/Plan IMP: 1. New onset seizures, witnessed 2. History of CVAs ( x2) 3. Factor V Leiden + (by patient report) 4. DM/HTN/Non-obstructive CAD 5. Mildly prolonged QTc (probably secondary to SSRI and opiates-- + in urine) REC: 1. No evidence of arrhythmia x 24 hours; d/c tele Keep K+ and Mg2+ normalized Avoid opiates. Monitor QTc Echo normal Carotid US basically normal 2. MRI brain pending
[2017-12-17] MEDS: ASPIRIN COATED 81 MG TABLET.EC PO SCH (09:06)
[2017-12-17] MEDS: HYDROCHLOROTHIAZIDE 12.5 MG CAPSULE (FP) PO SCH (09:06)
[2017-12-17] MEDS: LISINOPRIL 20 MG TABLET (FP) PO SCH (09:07)
[2017-12-17] MEDS: METOPROLOL SUCCINATE 50 MG TAB.SR.24H (FP) PO SCH (09:07)
--- NOTE | 2017-12-17 09:43 | EKG ---
Test Reason : Blood Pressure : / mmHG Vent. Rate : 069 BPM Atrial Rate : 069 BPM P-R Int : 168 ms QRS Dur : 104 ms QT Int : 434 ms P-R-T Axes : 025 -07 033 degrees QTc Int : 465 ms NORMAL SINUS RHYTHM INCOMPLETE RBBB WHEN COMPARED WITH ECG OF 14-DEC-2017 18:13, INCOMPLETE RIGHT BUNDLE BRANCH BLOCK IS NO LONGER PRESENT Confirmed by FAVIO SMITH MD ([id number]) on 12/17/2017 9:43:08 AM Referred By: Confirmed By:FAVIO SMITH MD
--- NOTE | 2017-12-17 12:46 | DS ---
Physical Exam: SUBJECTIVE: Patient seen and examined OBJECTIVE: Vital Signs Period Temp Pulse Resp BP Sys/Hernández Pulse Ox Last 24 Hr 98 F-98.8 F 57-62 18-20 104-129/54-75 97-98 PHYSICAL EXAM GENERAL: The patient is awake, alert, and fully oriented, in no acute distress. HEAD: Normal with no signs of trauma. EYES: PERRL, extraocular movements intact, sclera anicteric, conjunctiva clear. ENT: Ears normal, nares patent, oropharynx clear without exudates, moist mucous membranes. NECK: Trachea midline, full range of motion, supple. LUNGS: Breath sounds equal, clear to auscultation bilaterally, no wheezes, no crackles, no accessory muscle use. HEART: Regular rate and rhythm, S1, S2 without murmur, rub or gallop. ABDOMEN: Soft, nontender, nondistended, normoactive bowel sounds, no guarding, no rebound, no hepatosplenomegaly, no masses. EXTREMITIES: 2+ pulses, warm, well-perfused, no edema. NEUROLOGICAL: Cranial nerves II through XII grossly intact. Normal speech, gait not observed. PSYCH: Normal mood, normal affect. SKIN: Warm, dry, normal turgor, no rashes or lesions noted. LABS Laboratory Results - last 24 hr 12/17/17 06:37 POC Glucometer 115 HOSPITAL COURSE: Date of Admission:12/14/17 Date of Discharge: 12/17/17 Discharge Summary Reason For Visit: ALTERED MENTAL STATUS Current Active Problems Seizure (Acute) Syncope (Acute) Condition: Stable - Instructions Diet, Activity, Other Instructions: You may resume your usual activity and diet. You have been started on Keppra for seizures. Please take the medication twice a day. Please schedule an appointment to follow up with your PCP, Dr. Fuentes, next week. Please schedule an appointment the neurologist, Dr. Holt, for follow up and EEG. Referrals: Lindsey Fuentes [Staff Physician] - Disposition: HOME - Home Medications Comprehensive Discharge Medication List: Ambulatory Orders Alprazolam 1 mg PO TID PRN 08/07/16 Aspirin [Aspirin EC] 81 mg PO DAILY 08/07/16 Metformin HCl [Glucophage -] 500 mg PO DAILY 08/07/16 Metoprolol Succinate [Toprol XL -] 50 mg PO DAILY 08/07/16 Hydrochlorothiazide [Hctz -] 12.5 mg PO BID 08/07/17 Lisinopril [Prinivil] 20 mg PO DAILY 08/07/17 Sertraline HCl [Zoloft -] 50 mg PO DAILY 08/07/17 Levetiracetam [Keppra -] 500 mg PO BID #60 tablet 12/17/17 This patient is new to me today: Yes Date on this admission: 12/17/17 Emergency Visit: Yes ED Registration Date: 12/14/17 Care time: The patient presented to the Emergency Department on the above date and was hospitalized for further evaluation of their emergent condition. Critical Care patient: No - Discharge Referral Referred to [facility] No
[2017-12-17 13:24] VITALS: BP 117/48; PULSE 64; TEMP 98
== END 2017-12-17 14:06 | disposition home or self-care (01) ==
LOC: JER 17:48 → JERBED 22:54 → J4W 12-15 13:13
PROVIDERS: ADMIT Internal Medicine; ATTEND Internal Medicine
PROC: 3E033GC Introduction of Other Therapeutic Substance into Peripheral Vein, Percutaneous Approach (ICD-10-PCS; principal; 2017-12-14)
PROC: 3E0337Z Introduction of Electrolytic and Water Balance Substance into Peripheral Vein, Percutaneous Approach (ICD-10-PCS; 2017-12-14)
DX: R56.9 Unspecified convulsions (principal); R55 Syncope and collapse; F41.8 Other specified anxiety disorders; I10 Essential (primary) hypertension; I25.2 Old myocardial infarction; F17.210 Nicotine dependence, cigarettes, uncomplicated; E11.9 Type 2 diabetes mellitus without complications; B19.20 Unspecified viral hepatitis C without hepatic coma; Z86.73 Personal history of transient ischemic attack (TIA), and cerebral infarction without residual deficits; Z79.82 Long term (current) use of aspirin; Z79.84 Long term (current) use of oral hypoglycemic drugs; Z88.0 Allergy status to penicillin; Z88.1 Allergy status to other antibiotic agents; Z88.2 Allergy status to sulfonamides
CPT/HCPCS: 36415; 70450-TC; 70553-TC; 71046-TC; 80053; 80307; 81003; 82140; 82962; 83036; 85025; 93005; 93010; 93306-TC; 93880-TC; 96374; 99285-25; G0378

== ENCOUNTER 2018-02-01 11:01 | Inpatient (IN) | payer OTHER ==
[2018-02-01] MEDS ORDERED: NALOXONE HCL 0.4 MG/ML VIAL ONE ×3 (11:10→11:12)
[2018-02-01 11:13] VITALS: BMI 28.3
--- NOTE | 2018-02-01 11:20 | PDOC ---
Attending Attestation - HPI HPI: 02/01/18 14:03 The patient is a 57 year old female with history of hypertension, hyperlipidemia , DM, heroin abuse, who presents to the ED in heroin overdose. She was brought in by her daughter who found her slumped over in the car. Patient unresponsive on arrival and unable to provide remainder of history. Documentation prepared by Anna Rg, acting as medical sales representative for Lindsey Shaffer MD. <Anna Rg - Last Filed: 02/01/18 14:03> - Resident Resident Name: Aniket Ceron - ED Attending Attestation I have performed the following: I have examined & evaluated the patient, The case was reviewed & discussed with the resident, I agree w/resident's findings & plan, Exceptions are as noted - Physicial Exam PE: GENERAL: Lethargic, minimally responsive HEAD: No signs of trauma EYES: Pupils pinpoint and sluggishly reactive, EOMI, sclera anicteric, conjunctiva clear ENT: Auricles normal inspection, hearing grossly normal, oropharynx clear without exudates. Moist mucosa. Nasal mucosa +multiple areas with tissue breakdown. NECK: Normal ROM, supple, no lymphadenopathy, JVD, or masses LUNGS: Breath sounds equal, clear to auscultation bilaterally. No wheezes, and no crackles HEART: Regular rate and rhythm, normal S1 and S2, no murmurs, rubs or gallops ABDOMEN: Soft, normoactive bowel sounds. No guarding, no rebound. No masses EXTREMITIES: Normal range of motion, no edema. No clubbing or cyanosis. No cords, erythema, or tenderness NEUROLOGICAL: Limited by AMS. SKIN: Warm, Dry, normal turgor, no rashes or lesions noted. No track anand or skin lesions. - Medical Decision Making Patient presented altered, family reporting that she used to use heroin, stopped in March of 2017, may have relapsed. Patient was connected to monitor, started to desat to 50s, bagged up to 100% with BVM while awaiting narcan. Narcan was given with rapid response, improved mental status. Initially patient denied any drug use, but then admitted to using a "bag" of heroin today. She subsequently became lethargic again, requiring second dose of narcan to avoid hypoxia. Placed on narcan drip. Will admit to hospital. <Lindsey Shaffer - Last Filed: 02/01/18 14:40>
--- NOTE | 2018-02-01 11:20 | PDOC ---
History of Present Illness - General Chief Complaint: Overdose Stated Complaint: AMS Time Seen by Provider: 02/01/18 11:19 Past History - Past Medical History Allergies/Adverse Reactions: Allergies Allergy/AdvReac Type Severity Reaction Status Date / Time levofloxacin [From Levaquin] Allergy Severe Hives,blist Verified 02/01/18 11:10 ers Penicillins Allergy Severe hives,blist Verified 02/01/18 11:10 ers Sulfa (Sulfonamide Allergy Severe Hives,blist Verified 02/01/18 11:10 Antibiotics) ers Home Medications: Ambulatory Orders Alprazolam 1 mg PO TID PRN 08/07/16 Aspirin [Aspirin EC] 81 mg PO DAILY 08/07/16 Metoprolol Succinate [Toprol XL -] 50 mg PO DAILY 08/07/16 metFORMIN HCL [Glucophage -] 500 mg PO DAILY 08/07/16 Hydrochlorothiazide [Hctz -] 12.5 mg PO BID 08/07/17 Lisinopril [Prinivil] 20 mg PO DAILY 08/07/17 Sertraline HCl [Zoloft -] 50 mg PO DAILY 08/07/17 levETIRAcetam [Keppra -] 500 mg PO BID #60 tablet 12/17/17 Anemia: No Asthma: No Cancer: No Cardiac Disorders: Yes ([place]) CVA: Yes (2008 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) COPD: No CHF: No Dementia: No Diabetes: Yes GI Disorders: No Disorders: No HTN: Yes Hypercholesterolemia: No Liver Disease: Yes (HEPATITIS C-REMISSION) Seizures: No Thyroid Disease: No - Surgical History Abdominal Surgery: No Appendectomy: No Cardiac Surgery: No Cholecystectomy: No Gastric Stapling: No GI Surgery: No Lung Surgery: No Neurologic Surgery: No Orthopedic Surgery: No - Immunization History Immunization Up to Date: Yes - Suicide/Smoking/Psychosocial Hx Smoking Status: Yes Smoking History: Unknown if ever smoked Have you smoked in the past 12 months: Yes Number of Cigarettes Smoked Daily: 4 Cigars Per Day: 5 'Breaking Loose' booklet given: 08/07/17 Hx Alcohol Use: No Drug/Substance Use Hx: Yes Substance Use Type: Heroin, Opiates, Prescribed Hx Substance Use Treatment: Yes (METHADONE-FINISHED COURSE OF TREATMENT) *Physical Exam - Vital Signs Last Vital Signs Temp Pulse Resp BP Pulse Ox 99.5 F 110 H 14 106/84 02/01/18 11:05 02/01/18 11:05 02/01/18 11:05 02/01/18 11:05 *DC/Admit/Observation/Transfer - Referrals Referrals: Rhett Werner MD [Primary Care Provider] - - Patient Instructions - Post Discharge Activity
[2018-02-01] MEDS ORDERED: NALOXONE HCL 0.4 MG/ML VIAL IVPUSH ONE ×2 (11:21→12:04)
[2018-02-01] MEDS ORDERED: ONDANSETRON 4 MG/2 ML VIAL IVPUSH ONE (11:21)
--- NOTE | 2018-02-01 11:22 | PDOC ---
History of Present Illness - General Chief Complaint: Overdose Stated Complaint: AMS Time Seen by Provider: 02/01/18 11:19 - History of Present Illness Initial Comments: 02/01/18 12:07 The patient is a 57 year old female with a history of HTN, HLD, DM, Heroin Abuse who presents for evaluation of AMS and Lethargy. The patient is brought in by her daughter who found the patient slumped over in her car just prior to presentation. She notes that that patient was well this morning. The patient has a history of heroin abuse that she has noted to snort. The patient was unresponsive on presentation and ROS was unable to be obtained. Past History - Past Medical History Allergies/Adverse Reactions: Allergies Allergy/AdvReac Type Severity Reaction Status Date / Time levofloxacin [From Levaquin] Allergy Severe Hives,blist Verified 02/01/18 11:10 ers Penicillins Allergy Severe hives,blist Verified 02/01/18 11:10 ers Sulfa (Sulfonamide Allergy Severe Hives,blist Verified 02/01/18 11:10 Antibiotics) ers Home Medications: Ambulatory Orders Alprazolam 1 mg PO TID PRN 08/07/16 Aspirin [Aspirin EC] 81 mg PO DAILY 08/07/16 Metoprolol Succinate [Toprol XL -] 50 mg PO DAILY 08/07/16 metFORMIN HCL [Glucophage -] 500 mg PO DAILY 08/07/16 Hydrochlorothiazide [Hctz -] 12.5 mg PO BID 08/07/17 Lisinopril [Prinivil] 20 mg PO DAILY 08/07/17 Sertraline HCl [Zoloft -] 50 mg PO DAILY 08/07/17 levETIRAcetam [Keppra -] 500 mg PO BID #60 tablet 12/17/17 Anemia: No Asthma: No Cancer: No Cardiac Disorders: Yes ([place]) CVA: Yes (2008 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) COPD: No CHF: No Dementia: No Diabetes: Yes GI Disorders: No Disorders: No HTN: Yes Hypercholesterolemia: No Liver Disease: Yes (HEPATITIS C-REMISSION) Seizures: No Thyroid Disease: No - Surgical History Abdominal Surgery: No Appendectomy: No Cardiac Surgery: No Cholecystectomy: No Gastric Stapling: No GI Surgery: No Lung Surgery: No Neurologic Surgery: No Orthopedic Surgery: No - Immunization History Immunization Up to Date: Yes - Suicide/Smoking/Psychosocial Hx Smoking Status: Yes Smoking History: Unknown if ever smoked Have you smoked in the past 12 months: Yes Number of Cigarettes Smoked Daily: 4 Cigars Per Day: 5 'Breaking Loose' booklet given: 08/07/17 Hx Alcohol Use: No Drug/Substance Use Hx: Yes Substance Use Type: Heroin, Opiates, Prescribed Hx Substance Use Treatment: Yes (METHADONE-FINISHED COURSE OF TREATMENT) Review of Systems - Review of Systems Able to Perform ROS?: No (Unresponsive AMS) *Physical Exam - Vital Signs Last Vital Signs Temp Pulse Resp BP Pulse Ox 99.5 F 110 H 14 106/84 02/01/18 11:05 02/01/18 11:05 02/01/18 11:05 02/01/18 11:05 - Physical Exam Comments: 02/01/18 12:20 General Appearance: Nourished. No Apparent Distress HEENT: EOMI. Minimally reactive small pupils. Erythema noted within the nares. No Pharyngeal Erythema, Tonsillar Exudate, Tonsillar Erythema Neck: No Cervical Lymphadenopathy Respiratory/Chest: Lungs Clear, Shallow respirations. No Crackles, Rales, Rhonchi, Wheezing Cardiovascular: Regular Rhythm, Regular Rate. No Murmur, Gallops, Rubs Gastrointestinal/Abdominal: Normal Bowel Sounds, Soft. No Guarding, Rebound, Tenderness Musculoskeletal: No CVA Tenderness Extremity: Normal Capillary Refill Integumentary: Normal Color, Dry, Warm Neurologic: Minimally responsive and unable to accurately assess. Heart Score/ECG Review #1 ECG reviewed & interpreted by me at: 13:17 (Prolonged QT interval) General ECG Interpretation: Sinus Rhythm, Normal Rate, No acute ischemic changes ED Treatment Course - LABORATORY CBC & Chemistry Diagram: 02/01/18 11:28 02/01/18 11:28 Medical Decision Making - Medical Decision Making 02/01/18 11:25 The patient is a 57 year old female with a history of HTN, HLD, DM, Heroin Abuse who presents for evaluation of AMS and Lethargy. Patient presented with an O2 saturation in 55%. The patient was bag mask ventilated with her O2 sat rising to 100%. The patient symptoms were likely due to heroin overdose and she received 0.4mg of Narcan here in the ED with immediate response. The patient become responsive and verbal after receiving the narcan. She informed us that she snorted 1 bag of heroin today. She otherwise denies other symptoms. We will send a cbc, cmp, urine tox, ua, acetominophen and salycilate level to further evaluate. 02/01/18 12:28 Patient became more lethargic with her saturations dropping to the 60%. She was arousable to voice. Another 0.4mg of narcan was given with response. The patient will be placed on a narcan drip to help manage her overdose. 02/01/18 14:03 CBC demonstrates an elevated wbc. cmp, ua are unremarkable. U Tox demonstrates positive benzos and opiates. The patient will require ICU admission for further management. We discussed the case with Dr. Avery who accepted the patient for ICU admission. 02/01/18 14:32 We discussed the case with the admitting team who accepted the patient for admission. *DC/Admit/Observation/Transfer Diagnosis at time of Disposition: Heroin overdose Qualifiers: Encounter type: initial encounter Injury intent: accidental or unintentional Qualified Code(s): T40.1X1A - Poisoning by heroin, accidental (unintentional), initial encounter - Discharge Dispostion Condition at time of disposition: Critical Admit: Yes - Referrals Referrals: Rhett Werner MD [Staff Physician] - - Patient Instructions - Post Discharge Activity
[2018-02-01] MEDS ORDERED: ONDANSETRON 4 MG/2 ML VIAL ONE (11:26)
[2018-02-01 11:38] LABS: BASO % 0.8 % (0-2.0); EOS % 1.1 % (0-4.5); HEMOGLOBIN 11.8 GM/dL (10.7-15.3); LYMPH % 34.9 % (8-40); MCH 30.3 pg (25.7-33.7); MCHC 32.7 g/dl (32.0-36.0); MEAN CELL VOLUME 92.5 fl (80-96); MEAN PLT VOLUME 7.7 fl (7.5-11.1); MONO % 8.4 % (3.8-10.2); NEUT % 54.8 % (42.8-82.8); PLATELET COUNT 271 K/MM3 (134-434); RBC 3.89 M/mm3 (3.60-5.2); RDW 14.6 % (11.6-15.6); WHITE BLOOD COUNT 13.6 K/mm3 (4.0-10.0)
[2018-02-01 11:40] LABS: URINE APPEARANCE CLEAR; URINE BILIRUBIN NEGATIVE (NEGATIVE); URINE BLOOD NEGATIVE (NEGATIVE); URINE COLOR YELLOW; URINE GLUCOSE (UA) NEGATIVE (NEGATIVE); URINE KETONE TRACE (NEGATIVE); URINE LEUK ESTERASE NEGATIVE (NEGATIVE); URINE NITRITE NEGATIVE (NEGATIVE); URINE PROTEIN NEGATIVE (NEGATIVE); URINE UROBILINOGEN NEGATIVE mg/dL (0.2-1.0)
[2018-02-01] MEDS ORDERED: SODIUM CHLORIDE 1,000 ML IV STA (12:04)
[2018-02-01 12:05] LABS: ACETAMINOPHEN < 2.000 ug/mL; SALICYLATE < 1.700 mg/dL
[2018-02-01 12:06] LABS: ALBUMIN 3.5 g/dl (3.4-5.0); ANION GAP 9 (8-16); BLOOD UREA NITROGEN 6 mg/dL (7-18); CALCIUM 8.3 mg/dL (8.5-10.1); CHLORIDE 102 mmol/L (98-107); CO2 28 mmol/L (21-32); CREATININE 0.9 mg/dL (0.55-1.02); GLUCOSE,RANDOM 143 mg/dL (74-106); POTASSIUM 4.1 mmol/L (3.5-5.1); SGOT/AST 34 U/L (15-37); SGPT/ALT 16 U/L (12-78); SODIUM 139 mmol/L (136-145)
[2018-02-01 12:08] LABS: ALK PHOS 55 U/L (45-117); BILIRUBIN,TOTAL 0.3 mg/dL (0.2-1.0); TOT PROT 6.7 g/dl (6.4-8.2)
[2018-02-01] MEDS ORDERED: NALOXONE HCL 2 MG in DEXTROSE 5%-WATER - 495 ML IV SCH (12:15)
[2018-02-01 12:28] LABS: COCAINE, UR NEGATIVE ng/ml (CUTOFF=300); METHADONE, UR NEGATIVE ng/ml (CUTOFF=300); PHENCYCLIDINE,URINE NEGATIVE ng/ml (CUTOFF=25); URINE AMPHETAMINES NEGATIVE ng/ml (CUTOFF=500); URINE BARBITURATES NEGATIVE ng/ml (CUTOFF=200)
[2018-02-01 12:29] LABS: OPIATES, URI POSITIVE ng/ml (CUTOFF=300); URINE BENZODIAZEPINES POSITIVE ng/ml (CUTOFF=200)
[2018-02-01] MEDS ORDERED: SODIUM CHLORIDE 1,000 ML IV SCH (14:30)
[2018-02-01] MEDS ORDERED: METOPROLOL TARTRATE 5 MG/5 ML VIAL IVPUSH PRN (14:33)
[2018-02-01] MEDS ORDERED: DEXTROSE 50%-WATER - 25 GM/50 ML VIAL IVPUSH PRN (15:36)
--- NOTE | 2018-02-01 15:55 | PN ---
Teaching Attending Note Name of Resident: Concepción Salinas ATTENDING PHYSICIAN STATEMENT I saw and evaluated the patient. I reviewed the resident's note and discussed the case with the resident. I agree with the resident's findings and plan as documented. SUBJECTIVE: Pt seen and examined in the ICU with the resident. Briefly, 57yo female with h/ o HTN, hypercholesterolemia, DM, CAD, h/o CVA, heroin use who was brought in after being found slumped over in her car. Reports using 2 bags of heroin intranasally. Given narcan with improvement in mental status but became hypoxic and altered requiring a narcan gtt, transferred to the ICU for further monitoring. Reports some nausea earlier but has since resolved. No shortness of breath or chest pain. No fevers, chills or sweats. Some left posterior hip/ flank discomfort. She uses heroin intermittently, last use before today was last week. She was previously on methadone maintenance tapered off 1 year ago, does not wish to resume therapy. OBJECTIVE: Last Vital Signs Temp Pulse Resp BP Pulse Ox 99.5 F 85 16 124/78 100 02/01/18 14:58 02/01/18 14:58 02/01/18 14:58 02/01/18 14:58 02/01/18 14:58 Intake & Output 01/29/18 01/30/18 01/31/18 02/01/18 22:59 23:59 23:59 23:59 Weight 72.575 kg Gen: NAD at rest Heart: RRR Lung: decreased breath sounds at the bases Abd: soft, nontender Ext: no edema CBC, BMP 02/01/18 11:28 02/01/18 11:28 Active Medications Aspirin (Ecotrin -) 81 mg PO DAILY [facility] Chlorhexidine Gluconate (Hibiclens For Decolonization -) 1 applic TP HS [facility] Dextrose (D50w (Vial) -) 25 gm IVPUSH PRN PRN PRN Reason: hypoglycemia Heparin Sodium (Porcine) (Heparin -) 5,000 unit SQ BID [facility] Hydrochlorothiazide (Hctz -) 12.5 mg PO BID [facility] Naloxone HCl 2 mg/ Dextrose 500 mls @ 100 mls/hr IV TITR [facility]; 0.4 MG/HR PRN Reason: Protocol Last Admin: 02/01/18 13:04 Dose: 0.4 mg/hr, 100 mls/hr Sodium Chloride (Normal Saline -) 1,000 mls @ 50 mls/hr IV ASDIR [facility] Stop: 02/02/18 14:28 Insulin Aspart (Novolog Vial Sliding Scale -) 1 vial SQ ACHS [facility] PRN Reason: Protocol Levetiracetam (Keppra -) 500 mg PO BID [facility] Metoprolol Tartrate (Lopressor Injection -) 5 mg IVPUSH Q4H PRN PRN Reason: HYPERTENSION Mupirocin (Bactroban Ointment (For Decolonization) -) 1 applic NS BID [facility] Stop: 02/06/18 21:59 Sertraline HCl (Zoloft -) 50 mg PO DAILY [facility] ASSESSMENT AND PLAN: Acute Hypoxic Respiratory Failure Heroin Overdose HTN DM Hypercholesterolemia - can d/c narcan gtt - does not wish to detox or go back on maintenance therapy - continue home meds - can transfer to floor once off narcan gtt - DVT prophylaxis
--- NOTE | 2018-02-01 16:24 | EKG ---
Test Reason : Blood Pressure : / mmHG Vent. Rate : 080 BPM Atrial Rate : 080 BPM P-R Int : 164 ms QRS Dur : 106 ms QT Int : 436 ms P-R-T Axes : 060 003 024 degrees QTc Int : 502 ms NORMAL SINUS RHYTHM PROLONGED QT ABNORMAL ECG WHEN COMPARED WITH ECG OF 17-DEC-2017 09:28, NO SIGNIFICANT CHANGE WAS FOUND Confirmed by MD DEANA, MARYLOU ([id number]) on 02/01/2018 4:24:16 PM Referred By: Confirmed By:MARYLOU LEBLANC MD
--- NOTE | 2018-02-01 16:28 | CONSULT ---
Consultation: REQUESTING PROVIDER: CONSULT REQUEST: We have been asked to medically evaluate this patient s/p heroin overdose. HISTORY OF PRESENT ILLNESS: 57F with PMH of CVA x 2, CAD, htn, hld, DM, heroin abuse, presents s/p heroin overdose. Pt reports taking 2 bags of heroin this morning (10:15am) via inhalation, though she usually takes 1 bag. Last use 1 week ago, pt reports intermittent use. Pt was found by daughter slumped over in car, not breathing. Pt improved after Narcan, but pt became hypoxic and was transferred to ICU for further monitoring. Pt reports nausea, resolved now. Pt weaned self off methadone 1 yr ago, and declines Detox/Rehab Consult at this time. Pt reports seizure 3 weeks ago, first in her life, and needing to f/u with a brain scan. Pt denies fever, chills, nausea, vomiting, headache, chest pain, sob, depression. SOCIAL HX: Tobacco: down to 1 cigarette daily Drugs: heroin only, weaned off methadone 1 yr ago Alcohol: denies Lives: with daughter and granddaughter FAMILY HX: mom of Ovarian cancer REVIEW OF SYSTEMS: CONSTITUTIONAL: Absent: fever, chills, diaphoresis, generalized weakness HEENT: Absent: rhinorrhea, nasal congestion, ear pain, eye pain, visual changes CARDIOVASCULAR: Absent: chest pain, palpitations, irregular heart rate, lightheadedness, peripheral edema RESPIRATORY: Absent: cough, shortness of breath, wheezing, stridor, hemoptysis GASTROINTESTINAL: Absent: abdominal pain, abdominal distension, nausea, vomiting, diarrhea, constipation GENITOURINARY: Left hip/flank pain Absent: dysuria, frequency, urgency, hesitancy, hematuria MUSCULOSKELETAL: Absent: myalgia, arthralgia, joint swelling, back pain, neck pain SKIN: Absent: rash, itching, pallor NEUROLOGIC: Absent: headache, focal weakness or paresthesias, dizziness PSYCHIATRIC: Absent: anxiety, depression, suicidal or homicidal ideation, hallucinations. PHYSICAL EXAMINATION Vital Signs - 24 hr 02/01/18 02/01/18 02/01/18 11:05 11:25 11:30 Temperature 99.5 F Pulse Rate 110 H Pulse Rate [ Radial] Respiratory 14 14 Rate Blood Pressure 106/84 Blood Pressure [Right Arm] O2 Sat by Pulse 100 100 Oximetry (%) 02/01/18 02/01/18 13:20 14:58 Temperature 99.5 F Pulse Rate Pulse Rate [ 80 85 Radial] Respiratory 16 16 Rate Blood Pressure Blood Pressure 103/65 124/78 [Right Arm] O2 Sat by Pulse 100 100 Oximetry (%) GENERAL: Awake, alert, and fully oriented, in no acute distress. HEAD: Normal with no signs of trauma. EYES: Extraocular movements intact, sclera anicteric, conjunctiva clear. No lid lag. EARS, NOSE, THROAT: Moist mucous membranes. NECK: Supple without lymphadenopathy, JVD, or masses. LUNGS: Breath sounds equal, clear to auscultation bilaterally. No wheezes, and no crackles. No accessory muscle use. HEART: Regular rate and rhythm, normal S1 and S2 without murmur, rub or gallop. ABDOMEN: Soft, nontender, not distended, no guarding. MUSCULOSKELETAL: Normal range of motion at all joints. No bony deformities or tenderness. No CVA tenderness. LOWER EXTREMITIES: Warm, well-perfused. No calf tenderness. No peripheral edema. NEUROLOGICAL: Cranial nerves II-XII grossly intact. Normal speech. No facial droop. PSYCHIATRIC: Cooperative. Good eye contact. Appropriate mood and affect. SKIN: Warm, dry, normal turgor, no rashes or lesions noted. Laboratory Results - last 24 hr 02/01/18 02/01/18 02/01/18 11:08 11:28 11:28 WBC RBC Hgb Hct MCV MCH MCHC RDW Plt Count MPV Neutrophils % Lymphocytes % Monocytes % Eosinophils % Basophils % Sodium Potassium Chloride Carbon Dioxide Anion Gap BUN Creatinine Creat Clearance w eGFR POC Glucometer [phone] Random Glucose Calcium Total Bilirubin AST ALT Alkaline Phosphatase Total Protein Albumin Urine Color Yellow Urine Appearance Clear Urine pH 7.0 D Ur Specific [place] 1.015 Urine Protein Negative Urine Glucose (UA) Negative Urine Ketones Trace H Urine Blood Negative Urine Nitrite Negative Urine Bilirubin Negative Urine Urobilinogen Negative Ur Leukocyte Esterase Negative Salicylates < 1.700 Opiates Screen Methadone Screen Acetaminophen < 2.000 Barbiturate Screen Phencyclidine Screen Ur Amphetamines Screen MDMA (Ecstasy) Screen Benzodiazepines Screen Cocaine Screen U Marijuana (THC) Screen 02/01/18 02/01/18 02/01/18 11:28 11:28 11:28 WBC 13.6 H D RBC 3.89 Hgb 11.8 Hct 36.0 MCV 92.5 MCH 30.3 MCHC 32.7 RDW 14.6 Plt Count 271 D MPV 7.7 Neutrophils % 54.8 Lymphocytes % 34.9 Monocytes % 8.4 Eosinophils % 1.1 D Basophils % 0.8 D Sodium 139 Potassium 4.1 Chloride 102 Carbon Dioxide 28 Anion Gap 9 BUN 6 L Creatinine 0.9 Creat Clearance w eGFR > 60 POC Glucometer Random Glucose 143 H Calcium 8.3 L Total Bilirubin 0.3 D AST 34 ALT 16 Alkaline Phosphatase 55 Total Protein 6.7 Albumin 3.5 Urine Color Urine Appearance Urine pH Ur Specific [place] Urine Protein Urine Glucose (UA) Urine Ketones Urine Blood Urine Nitrite Urine Bilirubin Urine Urobilinogen Ur Leukocyte Esterase Salicylates Opiates Screen Positive Methadone Screen Negative Acetaminophen Barbiturate Screen Negative Phencyclidine Screen Negative Ur Amphetamines Screen Negative MDMA (Ecstasy) Screen Negative Benzodiazepines Screen Positive Cocaine Screen Negative U Marijuana (THC) Screen Negative Active Medications Generic Name Dose Route Start Last Admin Trade Name Freq PRN Reason Stop Dose Admin Aspirin 81 mg 02/02/18 10:00 Ecotrin - PO DAILY GIULIA Chlorhexidine Gluconate 1 applic 02/01/18 22:00 Hibiclens For Decolonization - TP HS GIULIA Dextrose 25 gm 02/01/18 15:36 D50w (Vial) - IVPUSH PRN PRN hypoglycemia Heparin Sodium (Porcine) 5,000 unit 02/01/18 22:00 Heparin - SQ BID GIULIA Hydrochlorothiazide 12.5 mg 02/01/18 22:00 Hctz - PO BID GIULIA Naloxone HCl 2 mg/ Dextrose 500 mls @ 100 mls/hr 02/01/18 12:15 02/01/18 13: 04 IV 0.4 mg/hr TITR GIULIA 100 mls/hr Protocol Administration 0.4 MG/HR Sodium Chloride 1,000 mls @ 50 mls/hr 02/01/18 14:30 Normal Saline - IV 02/02/18 14:28 ASDIR GIULIA Insulin Aspart 1 vial 02/01/18 16:30 Novolog Vial Sliding Scale - SQ ACHS GIULIA Protocol Levetiracetam 500 mg 02/01/18 22:00 Keppra - PO BID GIULIA Metoprolol Tartrate 5 mg 02/01/18 14:33 Lopressor Injection - IVPUSH Q4H PRN HYPERTENSION Mupirocin 1 applic 02/01/18 22:00 Bactroban Ointment (For Decolonization) - NS 02/06/18 21:59 BID GIULIA Sertraline HCl 50 mg 02/02/18 10:00 Zoloft - PO DAILY GIULIA IMAGIN02/01/18 CXR -> some congestive changes ASSESSMENT/PLAN: 57F with PMH of CVA x 2, CAD, htn, hld, DM, heroin abuse, presents s/p heroin overdose. # heroin overdose - Narcan drip D/Logan -> can transfer to floors - monitor for s/s of withdrawal - COWS = 0 - pt declines Detox/Rehab Consult at this time. Pt does not wish to resume methadone maintenance therapy at this time. # acute hypoxic respiratory failure - primary team to f/u CXR - O2 prn # dm - BGMs - SSI - primary team to f/u [id number] - hold oral meds # htn - continue HCTZ - not hypertensive at this time, can resume home meds as needed # FEN - Fluids: NS @ 50 ml/hr - Electrolytes: wnl - Nutrition: diabetic diet # Prophylaxis - DVT ppx with Heparin BID Dispo: We will continue to follow the patient. Thank you for this consultative opportunity. Visit type - Emergency Visit Emergency Visit: Yes ED Registration Date: 02/01/18 Care time: The patient presented to the Emergency Department on the above date and was hospitalized for further evaluation of their emergent condition. - New Patient This patient is new to me today: Yes Date on this admission: 02/01/18 - Critical Care Critical Care patient: Yes Total Critical Care Time (in minutes): 45 Critical Care Statement: The care of this patient involved high complexity decision making to prevent further life threatening deterioration of the patient 's condition and/or to evaluate & treat vital organ system(s) failure or risk of failure.
[2018-02-01] MEDS ORDERED: PNEUMOC 13-VAL CONJ-DIP CRM/PF 0.5 ML DISP.SYRIN IM ONE (17:00)
[2018-02-01] MEDS: INSULIN SLIDING SCALE (NOVOLOG) 1 VIAL SQ SCH ×2 (17:12→21:29)
[2018-02-01] MEDS: HYDROCHLOROTHIAZIDE 12.5 MG CAPSULE (FP) PO SCH (21:29)
[2018-02-01] MEDS: levETIRAcetam 500 MG TABLET (FP) PO SCH (21:34)
[2018-02-01] MEDS: MUPIROCIN 2% TOPICAL OINTMENT FOR DECOLONIZATION NS SCH (21:34)
[2018-02-01] MEDS: HEPARIN NA (PORCINE) 5,000 UNITS/ML 1ML VIAL SQ SCH (21:34)
[2018-02-01] MEDS ORDERED: CHLORHEXIDINE GLUCONATE 4% CLEANSER FOR DECOLONIZATION TP SCH (22:00)
[2018-02-02 05:55] LABS: BASO % 0.5 % (0-2.0); EOS % 1.8 % (0-4.5); HEMATOCRIT 32.9 % (32.4-45.2); LYMPH % 35.2 % (8-40); MCH 31.3 pg (25.7-33.7); MCHC 33.5 g/dl (32.0-36.0); MEAN CELL VOLUME 93.6 fl (80-96); MEAN PLT VOLUME 7.8 fl (7.5-11.1); MONO % 7.9 % (3.8-10.2); NEUT % 54.6 % (42.8-82.8); PLATELET COUNT 203 K/MM3 (134-434); RBC 3.51 M/mm3 (3.60-5.2); RDW 14.3 % (11.6-15.6); WHITE BLOOD COUNT 7.5 K/mm3 (4.0-10.0)
[2018-02-02] MEDS: INSULIN SLIDING SCALE (NOVOLOG) 1 VIAL SQ SCH ×5 (06:06→21:32)
[2018-02-02 06:13] LABS: ALBUMIN 2.9 g/dl (3.4-5.0); ALK PHOS 41 U/L (45-117); ANION GAP 7 (8-16); BILIRUBIN,TOTAL 0.3 mg/dL (0.2-1.0); BLOOD UREA NITROGEN 4 mg/dL (7-18); CHLORIDE 105 mmol/L (98-107); CO2 31 mmol/L (21-32); CREATININE 0.8 mg/dL (0.55-1.02); GLUCOSE,RANDOM 107 mg/dL (74-106); POTASSIUM 3.9 mmol/L (3.5-5.1); SGOT/AST 28 U/L (15-37); SGPT/ALT 16 U/L (12-78); SODIUM 143 mmol/L (136-145)
[2018-02-02] MEDS ORDERED: ACETAMINOPHEN 1000 MG/100 ML VIAL (NON FORMULARY) IVPB PRN (06:14)
--- NOTE | 2018-02-02 07:53 | PN ---
Physical Exam: SUBJECTIVE: No events overnight. Pt continues to be off Narcan gtt since last night. Pt continues to deny any shortness of breath. OBJECTIVE: Vital Signs Period Temp Pulse Resp BP Sys/Hernández Pulse Ox Last 24 Hr 98.1 F-99.5 F 73-110 14-19 92-163/58-89 95-100 GENERAL: NAD, awake, alert, oriented x3 HEENT: NC/AT, EOMI, JUAN PABLO, sclera anicteric, nasal septum without any perforations or bloody discharge noted, moist mucosa LUNGS: CTA bilaterally, no wheezes, no crackles, no accessory muscle use. HEART: RRR, S1, S2 without murmur ABDOMEN: Soft, nontender, nondistended, normoactive bowel sounds, no guarding EXTREMITIES: 2+ DP pulses, warm, well-perfused, no edema. PSYCH: Normal mood, normal affect. SKIN: Warm, dry, normal turgor, no rashes or lesions noted Laboratory Results - last 24 hr 02/02/18 05:33 WBC 7.5 D RBC 3.51 L Hgb 11.0 Hct 32.9 MCV 93.6 MCH 31.3 MCHC 33.5 RDW 14.3 Plt Count 203 D MPV 7.8 Neutrophils % 54.6 Lymphocytes % 35.2 Monocytes % 7.9 Eosinophils % 1.8 Basophils % 0.5 Sodium Potassium Chloride Carbon Dioxide Anion Gap BUN Creatinine Creat Clearance w eGFR POC Glucometer Random Glucose Calcium Total Bilirubin AST ALT Alkaline Phosphatase Total Protein Albumin Urine Color Urine Appearance Urine pH Ur Specific [place] Urine Protein Urine Glucose (UA) Urine Ketones Urine Blood Urine Nitrite Urine Bilirubin Urine Urobilinogen Ur Leukocyte Esterase Salicylates Opiates Screen Methadone Screen Acetaminophen Barbiturate Screen Phencyclidine Screen Ur Amphetamines Screen MDMA (Ecstasy) Screen Benzodiazepines Screen Cocaine Screen U Marijuana (THC) Screen 02/02/18 05:33 WBC RBC Hgb Hct MCV MCH MCHC RDW Plt Count MPV Neutrophils % Lymphocytes % Monocytes % Eosinophils % Basophils % Sodium 143 Potassium 3.9 Chloride 105 Carbon Dioxide 31 Anion Gap 7 L BUN 4 L Creatinine 0.8 Creat Clearance w eGFR > 60 POC Glucometer Random Glucose 107 H Calcium 8.0 L Total Bilirubin 0.3 AST 28 ALT 16 Alkaline Phosphatase 41 L Total Protein 6.0 L Albumin 2.9 L Urine Color Urine Appearance Urine pH Ur Specific [place] Urine Protein Urine Glucose (UA) Urine Ketones Urine Blood Urine Nitrite Urine Bilirubin Urine Urobilinogen Ur Leukocyte Esterase Salicylates Opiates Screen Methadone Screen Acetaminophen Barbiturate Screen Phencyclidine Screen Ur Amphetamines Screen MDMA (Ecstasy) Screen Benzodiazepines Screen Cocaine Screen U Marijuana (THC) Screen Active Medications Generic Name Dose Route Start Last Admin Trade Name Freq PRN Reason Stop Dose Admin Acetaminophen 1,000 mg 02/02/18 06:14 Ofirmev Injection - IVPB Q6H PRN HEADACHE Aspirin 81 mg 02/02/18 10:00 Ecotrin - PO DAILY GIULIA Chlorhexidine Gluconate 1 applic 02/01/18 22:00 02/01/18 21:34 Hibiclens For Decolonization - TP 1 applic HS GIULIA Administration Dextrose 25 gm 02/01/18 15:36 D50w (Vial) - IVPUSH PRN PRN hypoglycemia Heparin Sodium (Porcine) 5,000 unit 02/01/18 22:00 02/01/18 21:34 Heparin - SQ 5,000 unit BID GIULIA Administration Hydrochlorothiazide 12.5 mg 02/01/18 22:00 02/01/18 21:29 Hctz - PO Not Given BID GIULIA Sodium Chloride 1,000 mls @ 50 mls/hr 02/01/18 14:30 02/01/18 16:04 Normal Saline - IV 02/02/18 14:28 50 mls/hr ASDIR GIULIA Administration Insulin Aspart 1 vial 02/01/18 16:30 02/02/18 06:06 Novolog Vial Sliding Scale - SQ Not Given ACHS [facility] Protocol Levetiracetam 500 mg 02/01/18 22:00 02/01/18 21:34 Keppra - PO 500 mg BID GIULIA Administration Metoprolol Tartrate 5 mg 02/01/18 14:33 Lopressor Injection - IVPUSH Q4H PRN HYPERTENSION Mupirocin 1 applic 02/01/18 22:00 02/01/18 21:34 Bactroban Ointment (For Decolonization) - NS 02/06/18 21:59 1 applic BID GIULIA Administration Sertraline HCl 50 mg 02/02/18 10:00 Zoloft - PO DAILY [facility] ASSESSMENT/PLAN: Neuro: Pt neurologically intact Respirtatory: Acute hypoxic respiratory failure (resolved) Cardiovascular: HTN - Controlled; continue Lopressor 5mg IVP q4h PRN continue HCTZ 12.5mg PO BID Endocrinology: DM - Continue BGM; ISS coverage Detox: Heroin Overdose --Reportedly snorted 2 packs; off narcan gtt since yesterday afternoon --Dr. Bolden on case: --Pt reporting abuse of benzo's in recent history --Benzo detox --Pt being given methadone outpatient therapy by Dr Bolden FEN: Fluids: Discontinue Electrolyte abnormalities: None currently Nutrition: Diabetic diet PPX: DVT - Heparin 5000U SQ TID GI - None indicated Dispo: Transfer M/S Case discussed with Dr. Avery and Dr. Kimi Sarmiento, DO - IM PGY-1 Visit type - Emergency Visit Emergency Visit: No - New Patient This patient is new to me today: No - Critical Care Critical Care patient: No
[2018-02-02] MEDS ORDERED: ACETAMINOPHEN 325 MG TABLET (FP) PO ONE (08:50)
--- NOTE | 2018-02-02 09:17 | CONSULT ---
"Consult Detox [facility] Reason for Current Admission/Consult: substance use Referred by:: Lenny merino MD - History History of Present Illness: kayla argueta, 1960 Search Date: 02/02/2018 09:44:49 AM The Drug Utilization Report below displays all of the controlled substance prescriptions, if any, that your patient has filled in the last twelve months. The information displayed on this report is compiled from pharmacy submissions to the Department, and accurately reflects the information as submitted by the pharmacies. This report was requested by: Jersey Bolden | Reference #: [id number] There are no results for the search terms that you entered. 57 yo f with PMHX opioid use disorder was on methadone until 1 year ago when she detoxed off program, usual dose was [id number], has been sober since then, taking xanax prn prescribed by MD but can nto find prescription in [employer] for anxiety, reprots recent new onset seizures, unknown etiology, did not use benzodiazepiens yesterday but relpased to heroin use sniffing in care found with ams slumpedover wheel by olinda, brtought to Ed and revived with narcan now beign obeserved in IV=CU. PMHX mul.tiple medical comobidities including opoorly contorlled. dm. no complaints, but reports cravigns and desire to use heroin because of recent triggers open to MAT with suboxone. unsure about benzo use but will start detox in light of recent h/o seizures and anxiety do. - History Source History Provided By: Patient, Medical Record, Caregiver Limitations to Obtaining History: No Limitations - Alcohol/Substance Use Hx Alcohol Use: No Hx Substance Use: Yes (benzodiazepine use daily prescribed, cannot find in [place] utox +ve) Hx Substance Use Treatment: Yes ([facility] 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) - Current Drug/Alcohol Use Heroin Route: Inhalation Frequency: 1-3 times last 30 days Date of Last Use: 02/01/18 Benzodiazepine (Klonopin) Route: Oral Frequency: Daily Amount used: xanax bid Date of Last Use: 01/31/18 - Past Medical History [employer]: Yes: Other (right optical 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 no signs of opioid withdrawal noted COWS - Scale Resting Pulse: 1= [place] 81-100 Sweatin= No chills or Flushing Restless Observation: 0= Sits Still Pupil Size: 0= Normal to Room Light Bone or Joint Aches: 0= None Runny Nose/ Eye Tearin= None GI Upset > 30mins: 0= None Tremor Observation: 0= None Yawning Observation: 0= None Anxiety or Irritability: 0= None Goose Flesh Skin: 0=Smooth Skin COWS Score: 1 CIWA Score - CIWA Score Nausea/Vomitin-No Nausea/No Vomiting Muscle Tremors: None Anxiety: 4-Mod. Anxious/Guarded Agitation: 0-Normal Activity Paroxysmal Sweats: No Perspiration Orientation: 0-Oriented Tacttile Disturbances: 5-Severe Hallucinations Auditory Disturbances: 0-None Visual Disturbances: 0-None Headache: 0-None Present CIWA-Ar Total Score: 9 Assessment Plan - Diagnosis (1) Opioid dependence with current use Status: Acute (2) Heroin overdose Status: Acute Qualifiers: Encounter type: initial encounter Injury intent: accidental or unintentional Qualified Code(s): T40.1X1A - Poisoning by heroin, accidental ( unintentional), initial encounter (3) Sedative, hypnotic or anxiolytic dependence with withdrawal, uncomplicated Status: Acute (4) Anxiety with depression Status: Acute (5) CAD (coronary artery disease) Status: Acute Qualifiers: Coronary Disease-Associated Artery/Lesion type: [place] artery [place] vs. transplanted heart: [place] heart Associated angina: angina presence unspecified Qualified Code(s): I25.10 - Atherosclerotic heart disease of [place] coronary artery without angina pectoris (6) Seizure Status: Acute (7) Uncontrolled diabetes mellitus Status: Acute Comment: continue f/u with pcp (8) Hepatitis C Status: Chronic Qualifiers: Viral hepatitis chronicity: unspecified Hepatic coma status: without hepatic coma Qualified Code(s): B19.20 - Unspecified viral hepatitis C without hepatic coma Comment: -completed 12 wks of harvoni 02/2017; started 11/26/16; check 12 wk post- tx viral load -discussed hep c, prevention of reinfection -refer for f/u abd u/s - pt to schedule -ana 1a, fibrosure 0.22 - F0-F1; Child-Dougherty Class A; MELD 6, Fib-4 - 1.19; no RAVs, LFTs wnl, platelets wnl, afp 3.8, Hep C VL - 283,180 -abd u/s 10/2016 - fatty infiltration vs hepatocellular disease, gallstones in neck w/o cholecystitis f/u 6 mo (9) Hypertension Status: Chronic Qualifiers: Hypertension type: essential hypertension Qualified Code(s): I10 - Essential (primary) hypertension Comment: managed by pcp (10) Tobacco abuse Status: Chronic Comment: discussed smoking cessation - Plan Plan: chart, labs, imaging reviewed. pateint examined and hsitory taken. case discussed with medical team. Recommend: 1. fluids, vitamins as ordered. 2. start MAT with suboxone 2mg daily, f/u [facility] outpatient for aftercare and MAT, 30 day prescription sent to pharmacy for discharge. 3. benzodiazepine dependence - unsure of history but in light of recent reported new onset seizures and +ve utox will detox while hosptialized. hold for sedation. 4. multiple medical comorbidities make detox riskier adn justifies a hosptial setting, control as per [facility] team. Jersey Bolden MD [phone] - Medication Detox Regimen/Protocol: Valium"
[2018-02-02] MEDS ORDERED: ASPIRIN COATED 81 MG TABLET.EC PO SCH (10:00)
[2018-02-02] MEDS ORDERED: SERTRALINE HCL 50 MG TABLET (FP) PO SCH (10:00)
[2018-02-02] MEDS ORDERED: diazePAM 5 MG TABLET PO PRN (10:04)
[2018-02-02] MEDS: HEPARIN NA (PORCINE) 5,000 UNITS/ML 1ML VIAL SQ SCH ×2 (10:17→21:34)
[2018-02-02] MEDS: PRENATAL VITAMINS W/ FOLIC ACID TABLET (FP) PO SCH (10:18)
[2018-02-02] MEDS: levETIRAcetam 500 MG TABLET (FP) PO SCH ×2 (10:18→21:33)
[2018-02-02] MEDS: MUPIROCIN 2% TOPICAL OINTMENT FOR DECOLONIZATION NS SCH (10:18)
[2018-02-02] MEDS: HYDROCHLOROTHIAZIDE 12.5 MG CAPSULE (FP) PO SCH ×2 (10:20→21:33)
[2018-02-02] MEDS ORDERED: diazePAM 5 MG TABLET PO ONE (10:30)
[2018-02-02] MEDS ORDERED: DEXTROSE 50%-WATER - 25 GM/50 ML VIAL IVPUSH PRN (11:11)
[2018-02-02] MEDS ORDERED: METOPROLOL TARTRATE 5 MG/5 ML VIAL IVPUSH PRN (11:11)
--- NOTE | 2018-02-02 11:32 | PN ---
Teaching Attending Note Name of Resident: Pablo Sarmiento ATTENDING PHYSICIAN STATEMENT I saw and evaluated the patient. I reviewed the resident's note and discussed the case with the resident. I agree with the resident's findings and plan as documented. SUBJECTIVE: Pt seen and examined in the ICU. No specific complaints. No nausea or vomiting. No abdominal pain. No shortness of breath or chest pain. OBJECTIVE: Last Vital Signs Temp Pulse Resp BP Pulse Ox 98.7 F 85 12 92/57 96 02/02/18 09:05 02/02/18 09:05 02/02/18 09:05 02/02/18 09:05 02/02/18 08:31 Intake & Output 01/30/18 01/31/18 02/01/18 02/02/18 23:59 23:59 23:59 23:59 Intake Total 620 600 Output Total 600 400 Balance 20 200 Weight 80.513 kg 79.39 kg Gen: NAD at rest Heart: RRR Lung: decreased breath sounds at the bases Abd: soft, nontender Ext: no edema CBC, BMP 02/02/18 05:33 02/02/18 05:33 Active Medications Aspirin (Ecotrin -) 81 mg PO DAILY [facility] Buprenorphine/Naloxone (Suboxone 2mg/0.5mg Sl Film -) 1 each SL DAILY [facility] Dextrose (D50w (Vial) -) 25 gm IVPUSH PRN PRN PRN Reason: hypoglycemia Diazepam (Valium -) 5 mg PO TID [facility] Stop: 02/03/18 22:01 Diazepam (Valium -) 5 mg PO BID [facility] Stop: 02/05/18 22:01 Diazepam (Valium -) 5 mg PO DAILY [facility] Stop: 02/06/18 10:01 Diazepam (Valium -) 10 mg PO Q4H PRN PRN Reason: WITHDRAWAL(CONT SUBST) Stop: 02/05/18 10:03 Heparin Sodium (Porcine) (Heparin -) 5,000 unit SQ BID GIULIA Hydrochlorothiazide (Hctz -) 12.5 mg PO BID GIULIA Insulin Aspart (Novolog Vial Sliding Scale -) 1 vial SQ ACHS GIULIA PRN Reason: Protocol Levetiracetam (Keppra -) 500 mg PO BID [facility] Metoprolol Tartrate (Lopressor Injection -) 5 mg IVPUSH Q4H PRN PRN Reason: HYPERTENSION Multivit/Folic Acid/Iron ( Vitamins (Sjr) -) 1 tab PO DAILY [facility] Last Admin: 02/02/18 10:18 Dose: 1 tab Sertraline HCl (Zoloft -) 50 mg PO DAILY [facility] Thiamine HCl (Vitamin B1 -) 100 mg PO [facility] ASSESSMENT AND PLAN: Acute Hypoxic Respiratory Failure resolved Heroin Overdose HTN DM Hypercholesterolemia - continue home meds - substance abuse counseling - DVT prophylaxis - can transfer to floor
--- NOTE | 2018-02-02 11:58 | PN ---
Progress Note, Physician Chief Complaint: asleep comfortable no alarms on telemetry - Current Medication List Current Medications: Active Medications Aspirin (Ecotrin -) 81 mg PO DAILY [facility] Buprenorphine/Naloxone (Suboxone 2mg/0.5mg Sl Film -) 1 each SL DAILY [facility] Dextrose (D50w (Vial) -) 25 gm IVPUSH PRN PRN PRN Reason: hypoglycemia Diazepam (Valium -) 5 mg PO TID [facility] Stop: 02/03/18 22:01 Diazepam (Valium -) 5 mg PO BID [facility] Stop: 02/05/18 22:01 Diazepam (Valium -) 5 mg PO DAILY [facility] Stop: 02/06/18 10:01 Diazepam (Valium -) 10 mg PO Q4H PRN PRN Reason: WITHDRAWAL(CONT SUBST) Stop: 02/05/18 10:03 Heparin Sodium (Porcine) (Heparin -) 5,000 unit SQ BID [facility] Hydrochlorothiazide (Hctz -) 12.5 mg PO BID [facility] Insulin Aspart (Novolog Vial Sliding Scale -) 1 vial SQ ACHS [facility] PRN Reason: Protocol Levetiracetam (Keppra -) 500 mg PO BID [facility] Metoprolol Tartrate (Lopressor Injection -) 5 mg IVPUSH Q4H PRN PRN Reason: HYPERTENSION Multivit/Folic Acid/Iron ( Vitamins (Sjr) -) 1 tab PO DAILY [facility] Last Admin: 02/02/18 10:18 Dose: 1 tab Sertraline HCl (Zoloft -) 50 mg PO DAILY [facility] Thiamine HCl (Vitamin B1 -) 100 mg PO [facility] - Objective Vital Signs: Vital Signs Temperature 99 F 02/02/18 11:25 Pulse Rate 76 02/02/18 11:25 Respiratory Rate 20 02/02/18 11:25 Blood Pressure 111/67 02/02/18 11:25 O2 Sat by Pulse Oximetry (%) 96 02/02/18 08:31 Constitutional: Yes: No Distress Eyes: Yes: WNL HENT: Yes: WNL Neck: Yes: WNL Cardiovascular: Yes: WNL Respiratory: Yes: WNL Gastrointestinal: Yes: WNL Genitourinary: Yes: WNL Musculoskeletal: Yes: WNL Extremities: Yes: WNL Edema: No Peripheral Pulses WNL: Yes Integumentary: Yes: WNL Wound/Incision: Yes: Clean/Dry Neurological: Yes: WNL ...Motor Strength: WNL Psychiatric: Yes: WNL Labs: CBC, BMP 02/02/18 05:33 02/02/18 05:33 Problem List - Problems (1) Heroin overdose Code(s): T40.1X1A - POISONING BY HEROIN, ACCIDENTAL (UNINTENTIONAL), INIT ENCNTR Qualifiers: Encounter type: initial encounter Injury intent: accidental or unintentional Qualified Code(s): T40.1X1A - Poisoning by heroin, accidental ( unintentional), initial encounter (2) Opioid dependence with current use Code(s): F11.20 - OPIOID DEPENDENCE, UNCOMPLICATED (3) Sedative, hypnotic or anxiolytic dependence with withdrawal, uncomplicated Code(s): F13.230 - SEDATV/HYP/ANXIOLYTC DEPENDENCE W WITHDRAWAL, UNCOMPLICATED (4) Uncontrolled diabetes mellitus Code(s): E11.65 - TYPE 2 DIABETES MELLITUS WITH HYPERGLYCEMIA (5) Diabetes type 2, controlled Code(s): E11.9 - TYPE 2 DIABETES MELLITUS WITHOUT COMPLICATIONS Qualifiers: Diabetes mellitus oil heaterman insulin use: without shelter use Diabetes mellitus complication status: with neurologic complications Diabetes mellitus complication detail: with autonomic neuropathy Qualified Code(s): E11.43 - Type 2 diabetes mellitus with diabetic autonomic (poly)neuropathy (6) Hepatitis C Code(s): B19.20 - UNSPECIFIED VIRAL HEPATITIS C WITHOUT HEPATIC COMA Qualifiers: Viral hepatitis chronicity: unspecified Hepatic coma status: without hepatic coma Qualified Code(s): B19.20 - Unspecified viral hepatitis C without hepatic coma (7) Hypertension Code(s): I10 - ESSENTIAL (PRIMARY) HYPERTENSION Qualifiers: Hypertension type: essential hypertension Qualified Code(s): I10 - Essential (primary) hypertension Assessment/Plan ivf opiod detox dr echevarria smoking cessation pain control correct lalo mackenzie to chair psychiatry eval
[2018-02-02] MEDS: BUPRENORPHINE/NALOXONE 2 MG/0.5 MG FILM PACKET SL SCH (14:32)
[2018-02-02] MEDS: diazePAM 5 MG TABLET PO SCH ×2 (14:33→21:33)
[2018-02-02] MEDS ORDERED: INSULIN (NOVOLOG) ASPART 100 UNITS/ML 10ML VIAL ONE (21:15)
[2018-02-02] MEDS ORDERED: THIAMINE HCL 100 MG TABLET (FP) PO SCH (22:00)
[2018-02-03] MEDS: diazePAM 5 MG TABLET PO SCH ×2 (06:18→13:17)
[2018-02-03] MEDS: INSULIN SLIDING SCALE (NOVOLOG) 1 VIAL SQ SCH ×2 (06:18→11:45)
[2018-02-03 07:47] VITALS: TEMP 98.9
[2018-02-03] MEDS: HYDROCHLOROTHIAZIDE 12.5 MG CAPSULE (FP) PO SCH (09:15)
[2018-02-03] MEDS: BUPRENORPHINE/NALOXONE 2 MG/0.5 MG FILM PACKET SL SCH (09:15)
[2018-02-03] MEDS: levETIRAcetam 500 MG TABLET (FP) PO SCH (09:15)
[2018-02-03] MEDS: HEPARIN NA (PORCINE) 5,000 UNITS/ML 1ML VIAL SQ SCH (09:15)
[2018-02-03] MEDS: PRENATAL VITAMINS W/ FOLIC ACID TABLET (FP) PO SCH (09:35)
[2018-02-03] MEDS ORDERED: ASPIRIN COATED 81 MG TABLET.EC PO SCH (10:00)
[2018-02-03] MEDS ORDERED: SERTRALINE HCL 50 MG TABLET (FP) PO SCH (10:00)
[2018-02-03 10:12] VITALS: BP 125/81; PULSE 78
--- NOTE | 2018-02-03 12:01 | DS ---
Physical Examination Vital Signs: Vital Signs Temperature 98.9 F 02/03/18 10:00 Pulse Rate 78 02/03/18 10:00 Respiratory Rate 20 02/03/18 10:00 Blood Pressure 125/81 02/03/18 10:00 O2 Sat by Pulse Oximetry (%) 98 02/02/18 21:00 Findings/Remarks: AWAKE ALERT NO DISTRESS Constitutional: Yes: Well Nourished Eyes: Yes: WNL HENT: Yes: WNL Neck: Yes: WNL Cardiovascular: Yes: WNL Respiratory: Yes: Cj-Limon Gastrointestinal: Yes: WNL Renal/: Yes: WNL Musculoskeletal: Yes: WNL Extremities: Yes: WNL Edema: No Peripheral Pulses WNL: Yes Integumentary: Yes: WNL Wound/Incision: Yes: Clean/Dry Neurological: Yes: WNL ...Motor Strength: WNL Psychiatric: Yes: WNL Labs: CBC, BMP 02/02/18 05:33 02/02/18 05:33 Discharge Summary Reason For Visit: ACCIDENTAL OVERDOSE OF HEROIN Current Active Problems Heroin overdose (Acute) Opioid dependence with current use (Acute) Sedative, hypnotic or anxiolytic dependence with withdrawal, uncomplicated ( Acute) Procedures: Principal: NEURO AND DETOX WORKUP Hospital Course: ADMITTED HEROIN OVERDOSE TREATED IN ICU F/U OUTPATIENT DETOX Condition: Good - Instructions Diet, Activity, Other Instructions: REG DIET SEE YOUR [facility] DOCTOR TOMORROW DETOX/REHAB SETUP OUTPATIENT WITH DIRECTOR ASSET RAJENDRA Referrals: Rhett Werner MD [Staff Physician] - Disposition: HOME - Home Medications Comprehensive Discharge Medication List: Ambulatory Orders Aspirin [Aspirin EC] 81 mg PO DAILY 08/07/16 Metoprolol Succinate [Toprol XL -] 50 mg PO DAILY 08/07/16 metFORMIN HCL [Glucophage -] 500 mg PO DAILY 08/07/16 Hydrochlorothiazide [Hctz -] 12.5 mg PO BID 08/07/17 Lisinopril [Prinivil] 20 mg PO DAILY 08/07/17 Sertraline HCl [Zoloft -] 50 mg PO DAILY 08/07/17 levETIRAcetam [Keppra -] 500 mg PO BID #60 tablet 12/17/17 Buprenorphine/Naloxone [Suboxone 2Mg/0.5MG Sl Film -] 1 each SL DAILY #30 film MDD 1 02/02/18
[2018-02-04] MEDS ORDERED: diazePAM 5 MG TABLET PO SCH (10:00)
[2018-02-06] MEDS ORDERED: diazePAM 5 MG TABLET PO SCH (10:00)
== END 2018-02-03 14:21 | disposition home or self-care (01) | DRG 917 ==
LOC: JER 11:01 → JERBED 14:23 → JICU 15:20 → J5S 02-02 11:26
PROVIDERS: ADMIT Family Medicine; ATTEND Family Medicine
DX: T40.1X1A Poisoning by heroin, accidental (unintentional), initial encounter (principal); J96.01 Acute respiratory failure with hypoxia; F11.20 Opioid dependence, uncomplicated; I10 Essential (primary) hypertension; E78.5 Hyperlipidemia, unspecified; Z88.0 Allergy status to penicillin; Z79.84 Long term (current) use of oral hypoglycemic drugs; Y92.89 Other specified places as the place of occurrence of the external cause; I25.10 Atherosclerotic heart disease of native coronary artery without angina pectoris; Z86.73 Personal history of transient ischemic attack (TIA), and cerebral infarction without residual deficits; F41.8 Other specified anxiety disorders; R56.9 Unspecified convulsions; E11.65 Type 2 diabetes mellitus with hyperglycemia; B18.2 Chronic viral hepatitis C; F17.210 Nicotine dependence, cigarettes, uncomplicated
CPT/HCPCS: 36415; 71045-TC-FY; 80053; 80307; 81003; 82962; 83036; 85025; 87086; 90670; 93005; 93010; 99284-25; J1644; J7030

== ENCOUNTER 2018-05-08 17:46 | Inpatient (IN) | payer OTHER ==
--- NOTE | 2018-05-08 17:47 | PDOC ---
History of Present Illness - General Chief Complaint: Overdose Stated Complaint: OVERDOSE Time Seen by Provider: 05/08/18 17:47 Past History - Past Medical History Allergies/Adverse Reactions: Allergies Allergy/AdvReac Type Severity Reaction Status Date / Time levofloxacin [From Levaquin] Allergy Severe Hives,blist Verified 02/01/18 11:10 ers Penicillins Allergy Severe hives,blist Verified 02/01/18 11:10 ers Sulfa (Sulfonamide Allergy Severe Hives,blist Verified 02/01/18 11:10 Antibiotics) ers Home Medications: Ambulatory Orders Aspirin [Aspirin EC] 81 mg PO DAILY 08/07/16 Metoprolol Succinate [Toprol XL -] 50 mg PO DAILY 08/07/16 metFORMIN HCL [Glucophage -] 500 mg PO DAILY 08/07/16 Hydrochlorothiazide [Hctz -] 12.5 mg PO BID 08/07/17 Lisinopril [Prinivil] 20 mg PO DAILY 08/07/17 Sertraline HCl [Zoloft -] 50 mg PO DAILY 08/07/17 levETIRAcetam [Keppra -] 500 mg PO BID #60 tablet 12/17/17 Buprenorphine/Naloxone [Suboxone 2Mg/0.5MG Sl Film -] 1 each SL DAILY #30 film MDD 1 02/02/18 Anemia: No Asthma: No Cancer: No Cardiac Disorders: Yes ([place]) CVA: Yes (2008 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) COPD: No CHF: No Dementia: No Diabetes: Yes GI Disorders: No Disorders: No HTN: Yes Hypercholesterolemia: No Liver Disease: Yes (HEPATITIS C-REMISSION) Seizures: No Thyroid Disease: No - Surgical History Abdominal Surgery: No Appendectomy: No Cardiac Surgery: No Cholecystectomy: No Gastric Stapling: No GI Surgery: No Lung Surgery: No Neurologic Surgery: No Orthopedic Surgery: No - Immunization History Immunization Up to Date: Yes - Suicide/Smoking/Psychosocial Hx Smoking Status: Yes Smoking History: Current every day smoker Have you smoked in the past 12 months: Yes Number of Cigarettes Smoked Daily: 4 Cigars Per Day: 5 'Breaking Loose' booklet given: 08/07/17 Hx Alcohol Use: No Drug/Substance Use Hx: Yes (benzodiazepine use daily prescribed, 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
--- NOTE | 2018-05-08 17:48 | PDOC ---
History of Present Illness - General Chief Complaint: Overdose Stated Complaint: OVERDOSE Time Seen by Provider: 05/08/18 17:47 - History of Present Illness Initial Comments: 05/08/18 17:48 Ms. Toro is a 57 yo female w/ pmh of HTN, HLD, DM, and heroin abuse who presents via EMS after patient's daughter received phone call her mother was acting strangely and found her to have snorted 2 bags of heroin and used xanax. Patient awake after 0.4mg Narcan confirms history and reports she was using while doing her laundry. Describes 1mg of xanax use. The patient denies chest pain, shortness of breath, headache and dizziness. Denies fever, chills, nausea, vomit, diarrhea and constipation. Denies dysuria, frequency, urgency and hematuria. Allergies: Levofloxacin, penicillins, sulfa drugs PCP: Chapo Iverson Past History - Past Medical History Allergies/Adverse Reactions: Allergies Allergy/AdvReac Type Severity Reaction Status Date / Time levofloxacin [From Levaquin] Allergy Severe Hives,blist Verified 05/08/18 18:11 ers Penicillins Allergy Severe hives,blist Verified 05/08/18 18:11 ers Sulfa (Sulfonamide Allergy Severe Hives,blist Verified 05/08/18 18:11 Antibiotics) ers Home Medications: Ambulatory Orders Aspirin [Aspirin EC] 81 mg PO DAILY 08/07/16 Metoprolol Succinate [Toprol XL -] 50 mg PO DAILY 08/07/16 metFORMIN HCL [Glucophage -] 500 mg PO DAILY 08/07/16 Hydrochlorothiazide [Hctz -] 12.5 mg PO BID 08/07/17 Anemia: No Asthma: No Cancer: No Cardiac Disorders: Yes ([place]) CVA: Yes (2008 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) COPD: No CHF: No Dementia: No Diabetes: Yes GI Disorders: No Disorders: No HTN: Yes Hypercholesterolemia: No Liver Disease: Yes (HEPATITIS C-REMISSION) Seizures: No Thyroid Disease: No - Surgical History Abdominal Surgery: No Appendectomy: No Cardiac Surgery: No Cholecystectomy: No Gastric Stapling: No GI Surgery: No Lung Surgery: No Neurologic Surgery: No Orthopedic Surgery: No - Immunization History Immunization Up to Date: Yes - Suicide/Smoking/Psychosocial Hx Smoking Status: Yes Smoking History: Current every day smoker Have you smoked in the past 12 months: Yes Number of Cigarettes Smoked Daily: 4 Cigars Per Day: 5 'Breaking Loose' booklet given: 08/07/17 Hx Alcohol Use: No Drug/Substance Use Hx: Yes (benzodiazepine use daily prescribed, 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 No weakness. HEAD, EYES, EARS, NOSE AND THROAT: No change in vision. No ear pain or discharge. No sore throat. CARDIOVASCULAR: No chest pain or shortness of breath RESPIRATORY: No cough, wheezing, or hemoptysis. GASTROINTESTINAL: No nausea, vomiting, diarrhea or constipation. GENITOURINARY: No dysuria, frequency, or change in urination. MUSCULOSKELETAL: No joint or muscle swelling or pain. No neck or back pain. SKIN: No rash NEUROLOGIC: No headache, vertigo, loss of consciousness, or change in strength/ sensation. ENDOCRINE: No increased thirst. No abnormal weight change HEMATOLOGIC/LYMPHATIC: No anemia, easy bleeding, or history of blood clots. ALLERGIC/IMMUNOLOGIC: No hives or skin allergy. *Physical Exam - Physical Exam Comments: 05/08/18 17:48 GENERAL: Patient initially extremely drowsy; became awake, alert, and fully oriented after 0.4mg Narcan. In no acute distress HEAD: No signs of trauma, normocephalic, atraumatic EYES: PERRLA, EOMI, sclera anicteric, conjunctiva clear ENT: Auricles normal inspection, hearing grossly normal, nares patent, oropharynx clear without exudates. Moist mucosa NECK: Normal ROM, supple, no lymphadenopathy, JVD, or masses LUNGS: No distress, speaks full sentences, clear to auscultation bilaterally HEART: Regular rate and rhythm, normal S1 and S2, no murmurs, rubs or gallops, peripheral pulses normal and equal bilaterally. ABDOMEN: Soft, nontender, normoactive bowel sounds. No guarding, no rebound. No masses EXTREMITIES: Normal inspection, Normal range of motion, no edema. No clubbing or cyanosis. NEUROLOGICAL: Cranial nerves II through XII grossly intact. Normal speech, normal gait, no focal sensorimotor deficits SKIN: Warm, Dry, normal turgor, no rashes or lesions noted. ED Treatment Course - LABORATORY CBC & Chemistry Diagram: 05/08/18 18:00 05/08/18 18:00 Medical Decision Making - Medical Decision Making 05/08/18 18:07 Ms. Toro is a 57 yo female w/ pmh as described who presents following acute overdose. Narcan given with acute return to consciousness. Patient pleasantly awake and conversant. 05/08/18 19:25 Patient now intermittently tearful and depressed. Endorses she took heroin so as "not to feel" anymore. Concern raised for depression and relapse. Patient currently under obs in ED. 05/08/18 19:38 Patient required 2nd narcan dose. 05/08/18 20:17 Patient admitted for further evaluation. *DC/Admit/Observation/Transfer Diagnosis at time of Disposition: Overdose Qualifiers: Encounter type: initial encounter Injury intent: undetermined intent Qualified Code(s): T50.904A - Poisoning by unspecified drugs, medicaments and biological substances, undetermined, initial encounter - Discharge Dispostion Decision to Admit order: Yes - Referrals - Patient Instructions - Post Discharge Activity
[2018-05-08] MEDS ORDERED: SODIUM CHLORIDE 1,000 ML IV STA (17:53)
--- NOTE | 2018-05-08 17:53 | PDOC ---
Attending Attestation - Resident Resident Name: Odin Castro - ED Attending Attestation I have performed the following: I have examined & evaluated the patient, The case was reviewed & discussed with the resident, I agree w/resident's findings & plan, Exceptions are as noted - HPI HPI: 05/08/18 18:08 57yo female presents to the ED via ambulance after medics were called for heroin use. Pt admits to snorting 2 bags of heroin. Pt states she was doing laundry this afternoon when she snorted heroin. 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 Pt denies si/hi. c/o depression/tearful. hx of drug abuse in the past. - Physicial Exam PE: 05/08/18 18:20 Gen: lethargic, sonorous resp upon arrival heart: +s1s2 reg lungs: diminished bs b/l bases, poor inspiratory effort abd: soft, nt/nd +bs ext: no c/c/e, radial and pedal pulses intact, no track anand, no rashes - Critical Care Time Total Critical Care Time: 30 Critical Care Statement: The care of this patient involved high complexity decision making to prevent further life threatening deterioration of the patient 's condition and/or to evaluate & treat vital organ system(s) failure or risk of failure. - Medical Decision Making 05/08/18 17:53 I, Dr. Merle Vega, DO, attest that this document has been prepared under my direction and personally reviewed by me in its entirety. I further attest, that it accurately reflects all work, treatment, procedures and medical decision -making performed by me. 05/08/18 18:23 a/p: 57yo female with heroin overdose -pt received narcan in the ED and woke up, pupils were pinpoint - after narcan, pupils 4mm and reactive -pt denies si/hi, but is very depressed -pt states she took a 1mg tab of xanax -will send labs, utox, tele monitor -has had narcotic od that require narcan drips in the past -will need detox and psych eval 05/08/18 20:07 pt again lethargic - will repeat narcan dose pmd is dr. patterson [facility] 05/08/18 20:23 resident discussed case with Monica from [facility] - accepted to service Heart Score/ECG Review - ECG Intrepretation Comment:: 05/08/18 18:25 sinus at 97, pvc, nl axis, incomplete rbbb, no acute st/t wave findings
[2018-05-08] MEDS ORDERED: NALOXONE HCL 0.4 MG/ML VIAL IVPUSH ONE ×4 (17:54→22:05)
[2018-05-08] MEDS ORDERED: ONDANSETRON 4 MG/2 ML VIAL IVPB ONE (17:54)
[2018-05-08] MEDS ORDERED: NALOXONE HCL 0.4 MG/ML VIAL ONE ×3 (17:55→21:17)
[2018-05-08 18:11] VITALS: BMI 28.3
[2018-05-08] MEDS ORDERED: ONDANSETRON 4 MG/2 ML VIAL ONE (18:13)
[2018-05-08 18:20] LABS: BASO % 1.1 % (0-2.0); EOS % 1.7 % (0-4.5); HEMATOCRIT 43.8 % (32.4-45.2); HEMOGLOBIN 14.4 GM/dL (10.7-15.3); LYMPH % 38.9 % (8-40); MCH 30.3 pg (25.7-33.7); MCHC 32.9 g/dl (32.0-36.0); MEAN CELL VOLUME 92.3 fl (80-96); MONO % 6.9 % (3.8-10.2); NEUT % 51.4 % (42.8-82.8); PLATELET COUNT 318 K/MM3 (134-434); RBC 4.75 M/mm3 (3.60-5.2); RDW 14.1 % (11.6-15.6); WHITE BLOOD COUNT 14.2 K/mm3 (4.0-10.0)
[2018-05-08 18:49] LABS: ALBUMIN 4.2 g/dl (3.4-5.0); ALK PHOS 80 U/L (45-117); ANION GAP 8 (8-16); BILIRUBIN,TOTAL 0.2 mg/dL (0.2-1.0); BLOOD UREA NITROGEN 11 mg/dL (7-18); CHLORIDE 107 mmol/L (98-107); CO2 28 mmol/L (21-32); CREATININE 1.2 mg/dL (0.55-1.02); GLUCOSE,RANDOM 142 mg/dL (74-106); POTASSIUM 4.2 mmol/L (3.5-5.1); SGOT/AST 13 U/L (15-37); SGPT/ALT 19 U/L (12-78); SODIUM 143 mmol/L (136-145); TOT PROT 8.1 g/dl (6.4-8.2)
[2018-05-08 18:53] LABS: SALICYLATE <4.0 mg/dL
[2018-05-08 18:55] LABS: ACETAMINOPHEN <2.0 ug/mL
[2018-05-08] MEDS ORDERED: ACETAMINOPHEN 325 MG TABLET (FP) PO ONE (19:35)
[2018-05-08] MEDS ORDERED: SODIUM CHLORIDE 0.9% 1000 ML INFUS.BAG IV ONE (19:35)
[2018-05-08] MEDS ORDERED: ACETAMINOPHEN 325 MG TABLET (FP) ONE (19:42)
[2018-05-08] MEDS ORDERED: AZITHROMYCIN 250 MG TABLET PO ONE (20:12)
[2018-05-08] MEDS ORDERED: AZITHROMYCIN 250 MG TABLET ONE (20:22)
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
[2018-05-08] MEDS ORDERED: SODIUM CHLORIDE 1,000 ML IV SCH (21:30)
[2018-05-08] MEDS ORDERED: HYDROCHLOROTHIAZIDE 12.5 MG CAPSULE (FP) PO SCH (22:00)
[2018-05-08] MEDS ORDERED: INSULIN SLIDING SCALE (NOVOLOG) 1 VIAL SQ SCH (22:00)
[2018-05-08] MEDS ORDERED: NALOXONE HCL 2 MG in DEXTROSE 5%-WATER - 495 ML IV SCH ×2 (22:15→23:45)
[2018-05-08] MEDS ORDERED: HYDROCHLOROTHIAZIDE 25 MG TABLET (FP) ONE (22:29)
[2018-05-09] MEDS ORDERED: SODIUM CHLORIDE 1,000 ML IV SCH (01:36)
--- NOTE | 2018-05-09 02:32 | CONSULT ---
Consult Consult Specialty:: pulm critical care Referred by:: paty martinez Reason for Consultation:: opiate OD requiring narcan drip - History of Present Illness Chief Complaint: narcotic OD History of Present Illness: This is a 57 yo female w/ pmh of hep c, HTN, HLD, DM, and heroin abuse who presented to [facility] via EMS after overdosing in a laundry mat where she was noted to be acting strangely. Pt expresses that she snorted 2 bags of heroin (that were given to her) and used xanax. Pt received 0.4mg Narcan in the field and became awake enough to confirm her pmhx and drug use. She described using 1mg of xanax. Upon arrival to ED, VSS. Pt denies chest pain, shortness of breath, headache and dizziness. Denies fever, chills, nausea, vomit, diarrhea and constipation. Denies dysuria, frequency, urgency and hematuria. Labs remarkable for WBC 14.2, creat 1.2. CXR clear. As per ED resident, she was given narcan 5 times for lethargy and pinpoint pupils. She was started on a narcan gtt and transferred to ICU for further management on gtt. Upon arrival to ICu, pt is a/ox4, in no acute distress on a narcan gtt running at 0.25mg. Drip placed on standby, as pt is wide awake and conversive. Utox collected and sent. On exam, she is calm but expresses moral distress. She is interested in speaking with psych regarding her anxiety and depression. She denies any suicidal ideation at this time. This overdose was not a suicide attempt but a way of dulling her feelings. Will continue to monitor. 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 ) Cardio/Vascular: Yes: HTN Pulmonary: No: Asthma, Bronchitis, Cancer, COPD, O2 Dependent, Pneumonia, Previously Intubated, Pulmonary Embolus, Pulmonary Fibrosis, Sleep Apnea, Other Gastrointestinal: Yes: Diverticulosis Hepatobiliary: Yes: Hepatitis C Renal/: Yes: Other Psych: Yes: Addictions, Anxiety, Depression Musculoskeletal: Yes: Chronic low back pain, Other (sciatica) Rheumatology: No: Fibromyalgia, Gout, Lupus, Rheumatoid Arthritis, Sarcoidosis, Vasculitis, Other ENT: No: Allergic Rhinitis, Sinusitis, Other Endocrine: Yes: Diabetes Mellitus Dermatology: No: Basal Cell, Cellulitis, Eczema, Melanoma, Psoriasis, Squamous Cell, Other - Past Surgical History Past Surgical History: Yes: Colonoscopy, Tonsillectomy - Alcohol/Substance Use Hx Alcohol Use: No History of Substance Use: reports: Heroin (snorted heroin in the past), Prescription (xanax) - Smoking History Smoking history: Current every day smoker Have you smoked in the past 12 months: Yes Aproximately how many cigarettes per day: 4 - Social History Usual Living Arrangement: Alone ADL: Independent 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 History of Recent Travel: No Home Medications - Allergies Allergies/Adverse Reactions: Allergies Allergy/AdvReac Type Severity Reaction Status Date / Time levofloxacin [From Levaquin] Allergy Severe Hives,blist Verified 05/08/18 18:11 ers Penicillins Allergy Severe hives,blist Verified 05/08/18 18:11 ers Sulfa (Sulfonamide Allergy Severe Hives,blist Verified 05/08/18 18:11 Antibiotics) ers - Home Medications Home Medications: Ambulatory Orders Aspirin [Aspirin EC] 81 mg PO DAILY 08/07/16 Metoprolol Succinate [Toprol XL -] 50 mg PO DAILY 08/07/16 metFORMIN HCL [Glucophage -] 500 mg PO DAILY 08/07/16 Hydrochlorothiazide [Hctz -] 12.5 mg PO BID 08/07/17 Alprazolam 1 mg PO BID 05/08/18 Duloxetine HCl [Cymbalta] 30 mg PO DAILY 05/08/18 Family Disease History - Family Disease History Family Disease History: CA: Mother (d. ovarian cancer) Review of Systems - Review of Systems Constitutional: reports: No Symptoms Eyes: reports: No Symptoms HENT: reports: No Symptoms Neck: reports: No Symptoms Cardiovascular: reports: No Symptoms Respiratory: reports: No Symptoms Gastrointestinal: reports: No Symptoms Genitourinary: reports: No Symptoms Breasts: reports: No Symptoms Reported Musculoskeletal: reports: No Symptoms Integumentary: reports: No Symptoms Neurological: reports: No Symptoms Endocrine: reports: No Symptoms Hematology/Lymphatic: reports: No Symptoms Psychiatric: reports: Anxiety, Depression. denies: Suicidal Physical Exam Vital Signs: Vital Signs Temperature 97.5 F L 05/09/18 02:00 Pulse Rate 65 05/09/18 02:00 Respiratory Rate 12 05/09/18 02:00 Blood Pressure 104/67 05/09/18 02:00 O2 Sat by Pulse Oximetry (%) 98 05/09/18 02:00 Constitutional: Yes: Well Nourished, No Distress, Calm. No: Anxious Eyes: Yes: WNL, Conjunctiva Clear, EOM Intact, PERRL HENT: Yes: WNL, Atraumatic, Normocephalic Neck: Yes: WNL, Supple, Trachea Midline Cardiovascular: Yes: WNL, Regular Rate and Rhythm, S1, S2. No: Gallop, Murmur, Rub, S3, S4 Respiratory: Yes: WNL, Regular, CTA Bilaterally Gastrointestinal: Yes: WNL, Normal Bowel Sounds, Soft ...Rectal Exam: Yes: Deferred Renal/: Yes: WNL Breast(s): Yes: WNL Musculoskeletal: Yes: WNL Extremities: Yes: WNL Edema: No Peripheral Pulses WNL: Yes Integumentary: Yes: WNL Neurological: Yes: WNL, Alert, Oriented. No: Lethargy, Seizure, Tremors ...Motor Strength: WNL Psychiatric: Yes: Alert, Oriented, Other (would like to speak with psych). No: Suicidal Ideation Labs: CBC, BMP 05/08/18 18:00 05/08/18 18:00 Imaging - Results Chest X-ray: Image Reviewed (clear) EKG: Image Reviewed Problem List - Problems (1) DM2 (diabetes mellitus, type 2) Code(s): E11.9 - TYPE 2 DIABETES MELLITUS WITHOUT COMPLICATIONS (2) Overdose Code(s): T50.901A - POISONING BY UNSP DRUG/MEDS/BIOL SUBST, ACCIDENTAL, INIT Qualifiers: Encounter type: initial encounter Injury intent: undetermined intent Qualified Code(s): T50.904A - Poisoning by unspecified drugs, medicaments and biological substances, undetermined, initial encounter (3) Hypertension Code(s): I10 - ESSENTIAL (PRIMARY) HYPERTENSION Qualifiers: Hypertension type: essential hypertension Qualified Code(s): I10 - Essential (primary) hypertension (4) History of heroin abuse Code(s): Z87.898 - PERSONAL HISTORY OF OTHER SPECIFIED CONDITIONS Assessment/Plan This is a 57yo Female w/ PMHx heroin use, HTN, HLD, nSTEMI 2016, CVA 2016 , DM with neuropathy, Factor V leiden, Hepatitis C presented to ED s/p heroin overdose. #Heroin overdose s/p 5 narcan pushes--> narcan drip. - detox and psych consults -d/c narcan gtt if sustains alertness #depression - psych consult #HTN/HLD - cont home HTN meds #DM2 with neuropathy - BGM AC/HS with novolog SS - cont home cymbalta #DVT PPX - heparin s.c Maritza Arzate, ENOCP_BC pulm critical care cc time 30mins
[2018-05-09 06:25] LABS: BASO % 0.5 % (0-2.0); EOS % 1.7 % (0-4.5); HEMATOCRIT 34.7 % (32.4-45.2); HEMOGLOBIN 11.4 GM/dL (10.7-15.3); LYMPH % 45.4 % (8-40); MCH 30.8 pg (25.7-33.7); MCHC 32.8 g/dl (32.0-36.0); MEAN CELL VOLUME 94.1 fl (80-96); MEAN PLT VOLUME 7.8 fl (7.5-11.1); MONO % 6.5 % (3.8-10.2); NEUT % 45.9 % (42.8-82.8); PLATELET COUNT 212 K/MM3 (134-434); RBC 3.68 M/mm3 (3.60-5.2); RDW 14.3 % (11.6-15.6); WHITE BLOOD COUNT 11.6 K/mm3 (4.0-10.0)
[2018-05-09 06:46] LABS: ANION GAP 4 (8-16); BLOOD UREA NITROGEN 9 mg/dL (7-18); CALCIUM 8.2 mg/dL (8.5-10.1); CHLORIDE 107 mmol/L (98-107); CO2 31 mmol/L (21-32); CREATININE 0.8 mg/dL (0.55-1.02); GLUCOSE,RANDOM 106 mg/dL (74-106); MAGNESIUM 2.1 mg/dL (1.8-2.4); PHOSPHOROUS 4.6 mg/dL (2.5-4.9); POTASSIUM 4.4 mmol/L (3.5-5.1); SODIUM 142 mmol/L (136-145)
[2018-05-09] MEDS ORDERED: INSULIN SLIDING SCALE (NOVOLOG) 1 VIAL SQ SCH (07:00)
--- NOTE | 2018-05-09 08:28 | PN ---
Mental Health Exam - Mental Status Exam Alert and Oriented to: Time, Place, Person Cognitive Function: Grossly Intact Patient Appearance: Well Groomed Mood: Anxious, Hopeful Affect: Appropriate Patient Behavior: Appropriate, Cooperative Speech Pattern: Clear Voice Loudness: Mildly Soft/Quiet Thought Process: Intact Thought Disorder: Not Present Hallucinations: None Suicidal Ideation: None, No Plan Homicidal Ideation: None, No Plan Insight/Judgement: Poor (DESCISION TO DO 2 BAGS AFTER SEEING OLD FRIEND, SPORADIC, JUDGEMENT LACKING. ) Sleep: Well Appetite: Fair Muscle strength/Tone: Normal Gait/Station: Deferred
--- NOTE | 2018-05-09 08:33 | PN ---
Progress Note (short form) - Note Progress Note: 57 YEAR OLD FEMALE WITH HISTORY OF ANXIETY DISORDER, PERIODIC HEROIN USER. 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 ALERT AND ORIENTATED BY 4. HAS PAST HX 2 STROKES, DM, HTN, DENIES ANY PSYCH ADMISSIONS. SEE THERAPIST/ PSYCH IN [facility] COMMUN[facility] THERAPY. TAKES XANAX FOR ANXIETY. PLAN. CLIENT DEINES ANY SUICIDAL IDEATION OR PLAN, HOPEFUL FOR LIVING. NO NEED FOR PSYCH ADMISSION. RETURN TO [facility] FOR COUNSELLING. REHAB TO IMPROVE INSIGHT INTO HER SPORADIC DRUG USE, Problem List - Problems (1) Anxiety Code(s): F41.9 - ANXIETY DISORDER, UNSPECIFIED
[2018-05-09 09:26] LABS: URINE APPEARANCE CLEAR; URINE BILIRUBIN NEGATIVE (<2.0 mg/dL); URINE COLOR LTYELLOW; URINE GLUCOSE (UA) NEGATIVE (NEGATIVE); URINE KETONE NEGATIVE (NEGATIVE); URINE LEUK ESTERASE NEGATIVE (NEGATIVE); URINE NITRITE NEGATIVE (NEGATIVE); URINE PROTEIN NEGATIVE (NEGATIVE); URINE UROBILINOGEN NEGATIVE mg/dL (0.2-1.0)
[2018-05-09] MEDS ORDERED: MUPIROCIN 2% TOPICAL OINTMENT FOR DECOLONIZATION NS SCH (10:00)
[2018-05-09] MEDS ORDERED: ALPRAZolam 0.25 MG TABLET PO PRN (10:00)
[2018-05-09] MEDS ORDERED: DULoxetine HCL 30 MG CAPSULE.DR (FP) PO SCH ×2 (10:00)
[2018-05-09] MEDS ORDERED: ASPIRIN COATED 81 MG TABLET.EC PO SCH ×2 (10:00)
--- NOTE | 2018-05-09 13:14 | PN ---
Physical Exam: SUBJECTIVE: Patient seen and examined at bed side in ICU off narcan drip , AAOx3 , asking to go home , reports some headach frontal 5/10 , imrove with Tyelnol , denies any chest pain sob, or abdominal pain. OBJECTIVE: Vital Signs Period Temp Pulse Resp BP Sys/Hernández Pulse Ox Last 24 Hr 97.5 F-98.2 F 65-111 10-18 101-163/38-111 97-100 GENERAL: AAOx3 in NAD HEAD: NC/AT EYES: EOMI, Conjunctiva clear, sclera anicteric ENT: moist mucous membrane NECK: Supple, no JVD LUNGS: CTA B/L, no crackles no wheezing no accessory muscle use. HEART: RRR, NSR, normal s1, s2, murmur no M/R/G ABDOMEN: Soft, ND, NT, +BS 4 Q, no CVA Tenderness LOWER EXTREMITIES: no edema, +2DP pulse, NEUROLOGICAL: No focal deficit. Normal speech. gait not observed. PSYCHIATRIC: Cooperative. Good eye contact. Appropriate mood and affect. SKIN: Warm, dry, Laboratory Results - last 24 hr 05/08/18 05/08/18 05/08/18 18:00 18:00 18:00 WBC 14.2 H D RBC 4.75 D Hgb 14.4 D Hct 43.8 D MCV 92.3 MCH 30.3 MCHC 32.9 RDW 14.1 Plt Count 318 D MPV 8.0 Absolute Neuts (auto) 7.3 Neutrophils % 51.4 Lymphocytes % 38.9 Monocytes % 6.9 Eosinophils % 1.7 Basophils % 1.1 Nucleated RBC % 0 Sodium 143 Potassium 4.2 Chloride 107 Carbon Dioxide 28 Anion Gap 8 BUN 11 Creatinine 1.2 H Creat Clearance w eGFR 46.30 POC Glucometer Random Glucose 142 H Calcium 9.0 Phosphorus Magnesium Total Bilirubin 0.2 D AST 13 L ALT 19 Alkaline Phosphatase 80 Total Protein 8.1 Albumin 4.2 Urine Color Urine Appearance Urine pH Ur Specific [place] Urine Protein Urine Glucose (UA) Urine Ketones Urine Blood Urine Nitrite Urine Bilirubin Urine Urobilinogen Ur Leukocyte Esterase Salicylates <4.0 Acetaminophen <2.0 05/08/18 05/08/18 05/09/18 18:01 22:23 05:30 WBC 11.6 H RBC 3.68 D Hgb 11.4 D Hct 34.7 D MCV 94.1 MCH 30.8 MCHC 32.8 RDW 14.3 Plt Count 212 D MPV 7.8 Absolute Neuts (auto) 5.3 Neutrophils % 45.9 Lymphocytes % 45.4 H Monocytes % 6.5 Eosinophils % 1.7 Basophils % 0.5 Nucleated RBC % 0 Sodium Potassium Chloride Carbon Dioxide Anion Gap BUN Creatinine Creat Clearance w eGFR POC Glucometer [id number] Random Glucose Calcium Phosphorus Magnesium Total Bilirubin AST ALT Alkaline Phosphatase Total Protein Albumin Urine Color Ltyellow Urine Appearance Clear Urine pH 5.0 D Ur Specific [place] 1.016 Urine Protein Negative Urine Glucose (UA) Negative Urine Ketones Negative Urine Blood Negative Urine Nitrite Negative Urine Bilirubin Negative Urine Urobilinogen Negative Ur Leukocyte Esterase Negative Salicylates Acetaminophen 05/09/18 05:30 WBC RBC Hgb Hct MCV MCH MCHC RDW Plt Count MPV Absolute Neuts (auto) Neutrophils % Lymphocytes % Monocytes % Eosinophils % Basophils % Nucleated RBC % Sodium 142 Potassium 4.4 Chloride 107 Carbon Dioxide 31 Anion Gap 4 L BUN 9 Creatinine 0.8 Creat Clearance w eGFR > 60 POC Glucometer Random Glucose 106 Calcium 8.2 L Phosphorus 4.6 Magnesium 2.1 Total Bilirubin AST ALT Alkaline Phosphatase Total Protein Albumin Urine Color Urine Appearance Urine pH Ur Specific [place] Urine Protein Urine Glucose (UA) Urine Ketones Urine Blood Urine Nitrite Urine Bilirubin Urine Urobilinogen Ur Leukocyte Esterase Salicylates Acetaminophen Active Medications Generic Name Dose Route Start Last Admin Trade Name Freq PRN Reason Stop Dose Admin Alprazolam 1 mg 05/09/18 10:00 05/09/18 10:17 Xanax - PO 1 mg BID PRN Administration ANXIETY Aspirin 81 mg 05/09/18 10:00 05/09/18 09:16 Ecotrin - PO 81 mg DAILY GIULIA Administration Chlorhexidine Gluconate 1 applic 05/09/18 22:00 Hibiclens For Decolonization - TP HS GIULIA Duloxetine HCl 30 mg 05/09/18 10:00 05/09/18 09:16 Cymbalta - PO 30 mg DAILY GIULIA Administration Naloxone HCl 2 mg/ Dextrose 500 mls @ 62.5 mls/hr 05/08/18 23:45 05/08/18 23: 40 IV 0.25 mg/hr TITR GIULIA 62.5 mls/hr Administration Protocol 0.25 MG/HR Sodium Chloride 1,000 mls @ 75 mls/hr 05/09/18 01:36 05/09/18 09:15 Normal Saline - IV 75 mls/hr ASDIR GIULIA Administration Insulin Aspart 1 vial 05/09/18 07:00 05/09/18 07:00 Novolog Vial Sliding Scale - SQ Not Given ACHS GIULIA Protocol Metoprolol Succinate 50 mg 05/09/18 10:00 05/09/18 09:16 Toprol Xl - PO 50 mg DAILY GIULIA Administration Mupirocin 1 applic 05/09/18 10:00 05/09/18 09:17 Bactroban Ointment (For Decolonization) - NS 05/14/18 09:59 1 applic BID GIULIA Administration CBC, BMP 05/09/18 05:30 05/09/18 05:30 ASSESSMENT/PLAN: This is a 57 yo female w/ pmh of hep c, HTN, HLD, DM, and heroin abuse who presented to [facility] via EMS after was found unresonsive in laundermate S/p heroin abuse and was amditted to ICU for further management #Neuro -Heroin overdose s/p 5 narcan pushes--> narcan drip. * off narcan drip * AAOx3 * hemodynamically stable * detox and psych consults -depression * psych consult # CArdio HTN/HLD * cont home HTN meds #Endo -DM2 with neuropathy * BGM AC/HS with novolog ISS * cont home cymbalta #FEN * F: DC fluids * E: monitor * N: low sodium diabetic diet #DVT PPX * heparin sc TID * # Dispo * transfer to med surg Total critical time 45 min Visit type - Emergency Visit Emergency Visit: Yes ED Registration Date: 05/09/18 Care time: The patient presented to the Emergency Department on the above date and was hospitalized for further evaluation of their emergent condition. - New Patient This patient is new to me today: Yes Date on this admission: 05/09/18 - Critical Care Critical Care patient: Yes Total Critical Care Time (in minutes): 45 Critical Care Statement: The care of this patient involved high complexity decision making to prevent further life threatening deterioration of the patient 's condition and/or to evaluate & treat vital organ system(s) failure or risk of failure.
--- NOTE | 2018-05-09 14:13 | EKG ---
Test Reason : Blood Pressure : / mmHG Vent. Rate : 097 BPM Atrial Rate : 097 BPM P-R Int : 156 ms QRS Dur : 106 ms QT Int : 358 ms P-R-T Axes : 048 -05 056 degrees QTc Int : 454 ms SINUS RHYTHM WITH OCCASIONAL PREMATURE VENTRICULAR COMPLEXES POSSIBLE LEFT ATRIAL ENLARGEMENT LOW VOLTAGE QRS INCOMPLETE RIGHT BUNDLE BRANCH BLOCK BORDERLINE ECG WHEN COMPARED WITH ECG OF 01-FEB-2018 13:08, PREMATURE VENTRICULAR COMPLEXES ARE NOW PRESENT Confirmed by LEONEL NEFF MD ([id number]) on 05/09/2018 2:12:44 PM Referred By: Confirmed By:LEONEL NEFF MD
[2018-05-09] MEDS: INSULIN SLIDING SCALE (NOVOLOG) 1 VIAL SQ SCH ×2 (16:48→21:05)
--- NOTE | 2018-05-09 17:13 | PN ---
Progress Note, Physician Chief Complaint: AWAKE ALERT LABILE UPSET SHE USED HEROIN - Current Medication List Current Medications: Active Medications Alprazolam (Xanax -) 1 mg PO BID PRN PRN Reason: ANXIETY Aspirin (Ecotrin -) 81 mg PO DAILY [facility] Chlorhexidine Gluconate (Hibiclens For Decolonization -) 1 applic TP HS [facility] Duloxetine HCl (Cymbalta -) 30 mg PO DAILY [facility] Insulin Aspart (Novolog Vial Sliding Scale -) 1 vial SQ ACHS [facility]; Protocol Last Admin: 05/09/18 16:48 Dose: Not Given Metoprolol Succinate (Toprol Xl -) 50 mg PO DAILY [facility] - Objective Vital Signs: Vital Signs Temperature 98 F 05/09/18 13:00 Pulse Rate 64 05/09/18 16:45 Respiratory Rate 16 05/09/18 16:45 Blood Pressure 118/68 05/09/18 16:45 O2 Sat by Pulse Oximetry (%) 98 05/09/18 02:00 Constitutional: Yes: Mild Distress Eyes: Yes: WNL HENT: Yes: WNL Neck: Yes: WNL Cardiovascular: Yes: WNL Respiratory: Yes: WNL Gastrointestinal: Yes: WNL Genitourinary: Yes: WNL Musculoskeletal: Yes: Muscle Weakness Extremities: Yes: WNL Edema: No Peripheral Pulses WNL: Yes Integumentary: Yes: WNL Wound/Incision: Yes: Clean/Dry Neurological: Yes: Pre-Existing Deficit ...Motor Strength: LLE, RLE Psychiatric: Yes: Other Labs: CBC, BMP 05/09/18 05:30 05/09/18 05:30 Problem List - Problems (1) Anxiety Code(s): F41.9 - ANXIETY DISORDER, UNSPECIFIED (2) DM2 (diabetes mellitus, type 2) Code(s): E11.9 - TYPE 2 DIABETES MELLITUS WITHOUT COMPLICATIONS (3) Overdose Code(s): T50.901A - POISONING BY UNSP DRUG/MEDS/BIOL SUBST, ACCIDENTAL, INIT Qualifiers: Encounter type: initial encounter Injury intent: undetermined intent Qualified Code(s): T50.904A - Poisoning by unspecified drugs, medicaments and biological substances, undetermined, initial encounter (4) Anxiety with depression Code(s): F41.8 - OTHER SPECIFIED ANXIETY DISORDERS (5) H/O: CVA (cerebrovascular accident) Code(s): Z86.73 - PRSNL HX OF TIA (TIA), AND CEREB INFRC W/O RESID DEFICITS (6) Heroin overdose Code(s): T40.1X1A - POISONING BY HEROIN, ACCIDENTAL (UNINTENTIONAL), INIT ENCNTR Qualifiers: Encounter type: initial encounter Injury intent: accidental or unintentional Qualified Code(s): T40.1X1A - Poisoning by heroin, accidental ( unintentional), initial encounter (7) Hepatitis C Code(s): B19.20 - UNSPECIFIED VIRAL HEPATITIS C WITHOUT HEPATIC COMA Qualifiers: Viral hepatitis chronicity: unspecified Hepatic coma status: without hepatic coma Qualified Code(s): B19.20 - Unspecified viral hepatitis C without hepatic coma Assessment/Plan LABS REVIEWED DR LING FOR DRUG DETOX RECOMMENDING A SHORT STAY AT [facility] CLONIDINE/BENADRYL/LEXAPRO STARTED XANAX PRN DVT PROPHYLAXIS PT EVAL TECHNICAL ACCOUNT MANAGER CONSULT
[2018-05-09] MEDS ORDERED: diphenhydrAMINE HCL 25 MG CAPSULE (FP) PO PRN (17:14)
[2018-05-09] MEDS: ESCITALOPRAM OXALATE 10 MG TABLET (FP) PO SCH (18:56)
[2018-05-09] MEDS ORDERED: CHLORHEXIDINE GLUCONATE 4% CLEANSER FOR DECOLONIZATION TP SCH ×2 (22:00)
[2018-05-09] MEDS: cloNIDine HCL 0.1 MG TABLET PO SCH (22:25)
[2018-05-09] MEDS: ALPRAZolam 0.25 MG TABLET PO PRN (23:01)
[2018-05-10] MEDS: INSULIN SLIDING SCALE (NOVOLOG) 1 VIAL SQ SCH ×2 (06:41→11:35)
--- NOTE | 2018-05-10 08:50 | PN ---
Progress Note, Physician Chief Complaint: Drug overdose History of Present Illness: NAD Seen by [facility] Seen by Psych recommendation for inpatient rehab for insight on sporadic drug use Counseling at [facility] - Current Medication List Current Medications: Active Medications Alprazolam (Xanax -) 1 mg PO BID PRN PRN Reason: ANXIETY Last Admin: 05/09/18 23:01 Dose: 1 mg Aspirin (Ecotrin -) 81 mg PO DAILY [facility] Chlorhexidine Gluconate (Hibiclens For Decolonization -) 1 applic TP HS [facility] Last Admin: 05/09/18 21:03 Dose: Not Given Clonidine (Catapres -) 0.1 mg PO BID [facility] Last Admin: 05/09/18 22:25 Dose: 0.1 mg Diphenhydramine HCl (Benadryl -) 25 mg PO Q6H PRN PRN Reason: FOR ITCHING Duloxetine HCl (Cymbalta -) 30 mg PO DAILY [facility] Escitalopram Oxalate (Lexapro -) 5 mg PO DAILY [facility] Last Admin: 05/09/18 18:56 Dose: 5 mg Insulin Aspart (Novolog Vial Sliding Scale -) 1 vial SQ [facility]; Protocol Last Admin: 05/10/18 06:41 Dose: Not Given Metoprolol Succinate (Toprol Xl -) 50 mg PO DAILY [facility] - Objective Vital Signs: Vital Signs Temperature 98.6 F 05/10/18 05:32 Pulse Rate 65 05/10/18 05:32 Respiratory Rate 20 05/10/18 05:32 Blood Pressure 110/60 05/10/18 05:32 O2 Sat by Pulse Oximetry (%) 98 05/09/18 20:09 Constitutional: Yes: Well Nourished, No Distress, Calm Cardiovascular: Yes: Regular Rate and Rhythm Respiratory: Yes: Regular Gastrointestinal: Yes: Normal Bowel Sounds, Soft Neurological: Yes: Alert, Oriented Psychiatric: Yes: Alert, Oriented Labs: CBC, BMP 05/09/18 05:30 05/09/18 05:30 Problem List - Problems (1) DM2 (diabetes mellitus, type 2) Assessment/Plan: -On Metformin at Home, would re-initiate after discharge Code(s): E11.9 - TYPE 2 DIABETES MELLITUS WITHOUT COMPLICATIONS (2) Overdose Assessment/Plan: -Seen [facility] psychiatry and [facility] -refuses to go to rehab -temporary supply of Alprazolam provided -Pt to f/u Psych and PCP outpatient Code(s): T50.901A - POISONING BY UNSP DRUG/MEDS/BIOL SUBST, ACCIDENTAL, INIT Qualifiers: Encounter type: initial encounter Injury intent: undetermined intent Qualified Code(s): T50.904A - Poisoning by unspecified drugs, medicaments and biological substances, undetermined, initial encounter (3) Anxiety with depression Assessment/Plan: -Started on [id number] mg po daily -Clonidine 0.1 mg BID -On Alprazolam 1 mg BID- confirmed on [facility] Code(s): F41.8 - OTHER SPECIFIED ANXIETY DISORDERS Assessment/Plan see problem list
[2018-05-10] MEDS ORDERED: PT OWN MED DRAWER 7, Y5N ONE (09:22)
[2018-05-10 09:30] VITALS: BP 116/71; PULSE 72; TEMP 98.1
[2018-05-10] MEDS: cloNIDine HCL 0.1 MG TABLET PO SCH (09:30)
[2018-05-10] MEDS: ESCITALOPRAM OXALATE 10 MG TABLET (FP) PO SCH (09:31)
[2018-05-10] MEDS: ALPRAZolam 0.25 MG TABLET PO PRN (09:34)
[2018-05-10] MEDS ORDERED: ASPIRIN COATED 81 MG TABLET.EC PO SCH (10:00)
[2018-05-10] MEDS ORDERED: DULoxetine HCL 30 MG CAPSULE.DR (FP) PO SCH (10:00)
--- NOTE | 2018-05-10 11:42 | PN ---
[facility] Progress Note (SOAP) Subjective: 57 yo with admitted with opioid overdose- required multiple Narcan injections, pt thinks it might have been fentanyl. She said she used b/c feeling depressed. Prior use was 2-3 months ago. Pt has been in the [facility] methadone program in the past. Is on xanax- being tapered down.Says feeling fine now and thinks she needs to deal with her depression- was seen by psych yesterday and pt states has a referral Objective: 05/10/18 11:40 CBCD WBC 11.6 K/mm3 (4.0-10.0) H 05/09/18 05:30 RBC 3.68 M/mm3 (3.60-5.2) D 05/09/18 05:30 Hgb 11.4 GM/dL (10.7-15.3) D 05/09/18 05:30 Hct 34.7 % (32.4-45.2) D 05/09/18 05:30 MCV 94.1 fl (80-96) 05/09/18 05:30 MCHC 32.8 g/dl (32.0-36.0) 05/09/18 05:30 RDW 14.3 % (11.6-15.6) 05/09/18 05:30 Plt Count 212 K/MM3 (134-434) D 05/09/18 05:30 MPV 7.8 fl (7.5-11.1) 05/09/18 05:30 CMP Sodium 142 mmol/L (136-145) 05/09/18 05:30 Potassium 4.4 mmol/L (3.5-5.1) 05/09/18 05:30 Chloride 107 mmol/L (98-107) 05/09/18 05:30 Carbon Dioxide 31 mmol/L (21-32) 05/09/18 05:30 Anion Gap 4 (8-16) L 05/09/18 05:30 BUN 9 mg/dL (7-18) 05/09/18 05:30 Creatinine 0.8 mg/dL (0.55-1.02) 05/09/18 05:30 Creat Clearance w eGFR > 60 (>60) 05/09/18 05:30 Random Glucose 106 mg/dL (74-106) 05/09/18 05:30 Calcium 8.2 mg/dL (8.5-10.1) L 05/09/18 05:30 Total Bilirubin 0.2 mg/dL (0.2-1.0) D 05/08/18 18:00 AST 13 U/L (15-37) L 18 18:00 ALT 19 U/L (12-78) 05/08/18 18:00 Alkaline Phosphatase 80 U/L (45-117) 05/08/18 18:00 Total Protein 8.1 g/dl (6.4-8.2) 05/08/18 18:00 Albumin 4.2 g/dl (3.4-5.0) 05/08/18 18:00 Vital Signs - 8 hr 05/10/18 05/10/18 05/10/18 05:32 09:00 09:30 Temperature 98.6 F 98.1 F Pulse Rate 65 72 Respiratory 20 17 Rate Blood Pressure 110/60 116/71 O2 Sat by Pulse 99 Oximetry (%) Alert and oriented, mobile Assessment: 05/10/18 11:40 57 yo with h/o MH disorders, Diabetes, HTN, an episode of intranasal use of heroin/fentanyl- requiring multiple narcan doses. Pt is doing well now and wants to be discharged. Pt does not want to be admitted for detox or rehab as she says she is only an occasional user. Offered pt methadone OTP- pt refused stating she does not need it now. Plan: Pt states ready to go home. Offered pt [facility] services- pt refused. D/w pt that she can come for evaluation at [facility] if she changes her mind. Pt will f/ u with PCP and psychiatric services. Please call us back if we can be of further assistance: [phone].
== END 2018-05-10 13:06 | disposition home or self-care (01) | DRG 918 ==
LOC: JER 17:46 → JERBED 19:44 → INTOOBSV 19:44 → JICU 05-09 01:15 → OBSVTOIN 05-09 06:51 → J6S 05-09 19:35
PROVIDERS: ADMIT Internal Medicine; ATTEND Family Medicine
DX: T40.1X1A Poisoning by heroin, accidental (unintentional), initial encounter (principal); D68.51 Activated protein C resistance; T42.4X1A Poisoning by benzodiazepines, accidental (unintentional), initial encounter; F32.9 Major depressive disorder, single episode, unspecified; I10 Essential (primary) hypertension; F11.10 Opioid abuse, uncomplicated; E78.5 Hyperlipidemia, unspecified; I25.2 Old myocardial infarction; Z86.73 Personal history of transient ischemic attack (TIA), and cerebral infarction without residual deficits; E11.40 Type 2 diabetes mellitus with diabetic neuropathy, unspecified; B19.20 Unspecified viral hepatitis C without hepatic coma; F17.210 Nicotine dependence, cigarettes, uncomplicated; Z79.84 Long term (current) use of oral hypoglycemic drugs; Z88.0 Allergy status to penicillin; F41.9 Anxiety disorder, unspecified; Y92.89 Other specified places as the place of occurrence of the external cause
CPT/HCPCS: 36415; 71045-TC-FY; 80048; 80053; 80307; 81003; 82962; 83735; 84100; 85025; 87086; 93005; 93010; 99285-25; G0378; J0735; J7030

== ENCOUNTER 2018-11-09 11:58 | Emergency (ER) | payer OTHER ==
[2018-11-09] MEDS ORDERED: SODIUM CHLORIDE 1,000 ML IV STA (12:39)
[2018-11-09 12:50] VITALS: TEMP 97.6; BMI 34.4
--- NOTE | 2018-11-09 12:51 | PDOC ---
History of Present Illness - General Chief Complaint: Overdose Stated Complaint: Overdose Time Seen by Provider: 11/09/18 12:20 History Source: Patient Exam Limitations: Clinical Condition - History of Present Illness Initial Comments: 11/09/18 12:46 Patient with history of diabetes brought in by ambulance due to daughter calling 911 after mother using heroine. Patient reported she was very stressed this morning and sniffed bag of heroine she bought from a niranjan from the street. Patient reported history of heroine use every other 2-3 months. Patient given 2 dose of intranasal 0.4mg Narcan by EMS in route to ER. Patient denies dizziness , nausea, palpitation, chest pain, headache. 11/09/18 12:49 Timing/Duration: 1/2 hour Past History - Past Medical History Allergies/Adverse Reactions: Allergies Allergy/AdvReac Type Severity Reaction Status Date / Time levofloxacin [From Levaquin] Allergy Severe Hives,blist Verified 11/09/18 12:09 ers Penicillins Allergy Severe hives,blist Verified 11/09/18 12:09 ers Sulfa (Sulfonamide Allergy Severe Hives,blist Verified 11/09/18 12:09 Antibiotics) ers Home Medications: Ambulatory Orders Aspirin [Aspirin EC] 81 mg PO DAILY 08/07/16 Metoprolol Succinate [Toprol XL -] 25 mg PO BID 08/07/16 Duloxetine HCl [Cymbalta] 30 mg PO BID 05/08/18 Alprazolam 1 mg PO BID #14 tablet MDD 2 05/10/18 Escitalopram Oxalate [Lexapro -] 10 mg PO DAILY #30 tablet 05/10/18 Gabapentin 800 mg PO DAILY 07/22/18 Losartan 50Mg/Hctz 12.5MG [Hyzaar -] 1 tab PO DAILY 07/22/18 [place]-3S/Dha/Epa/Fish Oil [Vascazen Capsule] 1 gm PO BID 07/22/18 Anemia: No Asthma: No Cancer: No Cardiac Disorders: Yes ([place]) CVA: Yes (2008 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) COPD: No CHF: No Dementia: No Diabetes: Yes GI Disorders: No Disorders: No HTN: Yes Hypercholesterolemia: Yes Liver Disease: Yes (HEPATITIS C-REMISSION) Seizures: No Thyroid Disease: No - Surgical History Abdominal Surgery: No Appendectomy: No Cardiac Surgery: No Cholecystectomy: No Gastric Stapling: No GI Surgery: No Lung Surgery: No Neurologic Surgery: No Orthopedic Surgery: No - Immunization History Immunization Up to Date: Yes - Suicide/Smoking/Psychosocial Hx Smoking Status: Yes Smoking History: Current every day smoker Have you smoked in the past 12 months: Yes Number of Cigarettes Smoked Daily: 4 Cigars Per Day: 5 Information on smoking cessation initiated: No 'Breaking Loose' booklet given: 08/07/17 Hx Alcohol Use: No Drug/Substance Use Hx: Yes (Heroin) Substance Use Type: None Hx Substance Use Treatment: Yes ([facility] 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) Review of Systems - Review of Systems Able to Perform ROS?: Yes Is the patient limited Polish proficient: No Constitutional: No: Weakness HEENTM: No: Eye Pain, Blurred Vision, Recent change in vision, Double Vision Respiratory: No: Symptoms reported Cardiac (ROS): No: Symptoms Reported, See HPI, Chest Pain, Edema, Irregular Heart Rate, Lightheadedness, Palpitations, Syncope, Chest Tightness, Other ABD/GI: No: Nausea, Vomiting All Other Systems: Reviewed and Negative *Physical Exam - Vital Signs Last Vital Signs Temp Pulse Resp BP Pulse Ox 97.6 F 86 16 145/80 99 11/09/18 12:00 11/09/18 12:00 11/09/18 12:00 11/09/18 12:00 11/09/18 12:00 - Physical Exam Comments: 11/09/18 12:50 GENERAL: Well developed, well nourished. Awake and alert. No acute distress. HEENT: mildly contricted pupils B/L. Normocephalic, atraumatic. PERRLA, EOMI. No conjunctival pallor. Sclera are non-icteric. Moist mucous membranes. Oropharynx is clear. NECK: Supple. Full ROM. CARDIOVASCULAR: Regular rate and rhythm. No murmurs, rubs, or gallops. Distal pulses are 2+ and symmetric. PULMONARY: No evidence of respiratory distress. Lungs clear to auscultation bilaterally. No wheezing, rales or rhonchi. ABDOMINAL: Soft. Non-tender. Non-distended. No rebound or guarding. No organomegaly. Normoactive bowel sounds. MUSCULOSKELETAL Normal range of motion at all joints. EXTREMITIES: No cyanosis. No clubbing. No edema. No calf tenderness. SKIN: Warm and dry. Normal capillary refill. No rashes. No jaundice. NEUROLOGICAL: Alert, awake, appropriate. Gait is normal without ataxia. PSYCHIATRIC: Cooperative. Good eye contact. Appropriate mood General Appearance: Yes: Nourished, Appropriately Dressed. No: Apparent Distress Moderate Sedation - Procedure Monitoring Vital Signs: Procedure Monitoring Vital Signs Temperature 97.6 F 11/09/18 12:00 Pulse Rate 86 11/09/18 12:00 Respiratory Rate 16 11/09/18 12:00 Blood Pressure 145/80 11/09/18 12:00 O2 Sat by Pulse Oximetry (%) 99 11/09/18 12:00 Medical Decision Making - Medical Decision Making 11/09/18 12:51 Patient with history of diabetes brought in by EMS due to sniffing back of heroine 30 minutes ago. Patient given 2 doses of 0.5 mg Narcan in route to ER. Patient denies any symptoms. Patient alert and oriented 3. Clinical exam unremarkable except mildly constricted pupils bilaterally. Patient will be monitored for 3 hours for possible rebound from Narcan due to short Narcan half-life. EKG shows normal sinus rhythm. 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 Glucose fingerstick ordered. 11/09/18 15:37 glucose finger stick was 325 non-fasting. Patient observed for 3.5hrs and still report no symptoms. Patient A&O x 3. heart RRR. lungs CTAB. BP 126/67. pulse 79 11/09/18 15:40 11/09/18 16:04 repeat blood glucose is 240. Patient report elevated glucose was due to her putting lot of sugar in her coffee before presentation and fingerstick this AM before her diabetes meds was 120. Patient still asymptomatic and wants to go home. Patient stable for discharge. rpt vitals prior to d/c is 117/76. pulse 79 11/09/18 16:06 *DC/Admit/Observation/Transfer Diagnosis at time of Disposition: Heroin abuse Overdose Qualifiers: Encounter type: initial encounter Injury intent: undetermined intent Qualified Code(s): T50.904A - Poisoning by unspecified drugs, medicaments and biological substances, undetermined, initial encounter - Discharge Dispostion Disposition: HOME Condition at time of disposition: Stable Decision to Admit order: No - Referrals Referrals: Chapo Iverson MD [Primary Care Provider] - - Patient Instructions Printed Discharge Instructions: Chemical Dependency (Narcotic) (Alternative Therapy), DI for Drug Overdose in Adults Additional Instructions: Come back to emergency room if chest pain, dizziness, shortness of breath, weakness or palpitations. Repeat finger stick glucose in 2 hrs and take dose of diabetes medication if high glucose more than 250. Follow-up with PCP for glucose control. Decrease sugar intake and take sugar substitute to better control diabetes - Post Discharge Activity
--- NOTE | 2018-11-09 13:36 | EKG ---
Test Reason : Blood Pressure : / mmHG Vent. Rate : 082 BPM Atrial Rate : 082 BPM P-R Int : 172 ms QRS Dur : 118 ms QT Int : 414 ms P-R-T Axes : 037 007 044 degrees QTc Int : 483 ms NORMAL SINUS RHYTHM NON-SPECIFIC INTRA-VENTRICULAR CONDUCTION DELAY PROLONGED QT ABNORMAL ECG WHEN COMPARED WITH ECG OF 22-JUL-2018 15:47, NO SIGNIFICANT CHANGE WAS FOUND Confirmed by JANY HERNÁNDEZ, HARRIET ([id number]) on 11/09/2018 1:35:56 PM Referred By: Confirmed By:HARRIET CARMICHAEL MD
--- NOTE | 2018-11-09 14:00 | PDOC ---
*Physical Exam - Vital Signs Last Vital Signs Temp Pulse Resp BP Pulse Ox 97.6 F 79 12 126/63 98 11/09/18 12:00 11/09/18 13:12 11/09/18 13:12 11/09/18 13:12 11/09/18 13:12 - Physical Exam Comments: 11/09/18 13:59 The patient was examined by [MILO Wyatt] under my direct supervision. I personally evaluated the patient. I concur with the above findings and the plan of care. ED Treatment Course - Medications Given in the ED: ED Medications Discontinued Medications Generic Name Dose Route Start Last Admin Trade Name Freq PRN Reason Stop Dose Admin Sodium Chloride 1,000 mls @ 1,000 mls/hr 11/09/18 12:39 11/09/18 12:55 Normal Saline - IV 11/09/18 13:38 1,000 mls/hr ASDIR STA Administration *DC/Admit/Observation/Transfer Diagnosis at time of Disposition: Heroin abuse, Overdose - Discharge Dispostion Disposition: HOME Condition at time of disposition: Stable - Referrals Referrals: Chapo Iverson MD [Primary Care Provider] - - Patient Instructions Printed Discharge Instructions: Chemical Dependency (Narcotic) (Alternative Therapy), DI for Drug Overdose in Adults Additional Instructions: Come back to emergency room if chest pain, dizziness, shortness of breath, weakness or palpitations. Repeat finger stick glucose in 2 hrs and take dose of diabetes medication if high glucose more than 250. Follow-up with PCP for glucose control. Decrease sugar intake and take sugar substitute to better control diabetes - Post Discharge Activity
[2018-11-09 15:46] VITALS: BP 114/76; PULSE 72
== END 2018-11-09 16:12 | disposition home or self-care (01) ==
LOC: JER 11:58
PROC: 3E0337Z Introduction of Electrolytic and Water Balance Substance into Peripheral Vein, Percutaneous Approach (ICD-10-PCS; principal; 2018-11-09)
DX: T40.1X1A Poisoning by heroin, accidental (unintentional), initial encounter (principal); F11.10 Opioid abuse, uncomplicated; Y92.9 Unspecified place or not applicable; E11.9 Type 2 diabetes mellitus without complications; I25.2 Old myocardial infarction; I69.398 Other sequelae of cerebral infarction; I10 Essential (primary) hypertension; E78.00 Pure hypercholesterolemia, unspecified; F17.210 Nicotine dependence, cigarettes, uncomplicated; B18.2 Chronic viral hepatitis C; Z88.0 Allergy status to penicillin; Z18.81 Retained glass fragments; Z88.2 Allergy status to sulfonamides
CPT/HCPCS: 82962; 93005; 93010; 99284-25; J7030

== ENCOUNTER 2019-01-22 18:48 | Emergency (ER) | payer OTHER ==
[2019-01-22 18:53] VITALS: BP 97/65; PULSE 70; TEMP 98.5; BMI 33.0
--- NOTE | 2019-01-22 19:51 | PDOC ---
History of Present Illness - General Chief Complaint: Respiratory Stated Complaint: COLD SYMPTOMS, BODY ACHE Time Seen by Provider: 01/22/19 18:55 - History of Present Illness Initial Comments: 01/22/19 19:48 58-year-old female presents for evaluation of cough over the last 3 days. She has chills and night sweats without fever. She has an extensive cardiac history. She has no chest pain at this time. Past History - Past Medical History Allergies/Adverse Reactions: Allergies Allergy/AdvReac Type Severity Reaction Status Date / Time levofloxacin [From Levaquin] Allergy Severe Hives,blist Verified 01/22/19 18:53 ers Penicillins Allergy Severe hives,blist Verified 01/22/19 18:53 ers Sulfa (Sulfonamide Allergy Severe Hives,blist Verified 01/22/19 18:53 Antibiotics) ers Home Medications: Ambulatory Orders Aspirin [Aspirin EC] 81 mg PO DAILY 08/07/16 Metoprolol Succinate [Toprol XL -] 25 mg PO BID 08/07/16 Duloxetine HCl [Cymbalta] 30 mg PO BID 05/08/18 Alprazolam 1 mg PO BID #14 tablet MDD 2 05/10/18 Escitalopram Oxalate [Lexapro -] 10 mg PO DAILY #30 tablet 05/10/18 Gabapentin 800 mg PO DAILY 07/22/18 Losartan 50Mg/Hctz 12.5MG [Hyzaar -] 1 tab PO DAILY 07/22/18 [place]-3S/Dha/Epa/Fish Oil [Vascazen Capsule] 1 gm PO BID 07/22/18 Anemia: No Asthma: No Cancer: No Cardiac Disorders: Yes ([place]) CVA: Yes (2008 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) COPD: No CHF: No Dementia: No Diabetes: Yes GI Disorders: No Disorders: No HTN: Yes Hypercholesterolemia: Yes Liver Disease: Yes (HEPATITIS C-REMISSION) Seizures: No Thyroid Disease: No - Surgical History Abdominal Surgery: No Appendectomy: No Cardiac Surgery: No Cholecystectomy: No Gastric Stapling: No GI Surgery: No Lung Surgery: No Neurologic Surgery: No Orthopedic Surgery: No - Immunization History Immunization Up to Date: Yes - Suicide/Smoking/Psychosocial Hx Smoking Status: Yes Smoking History: Never smoked Have you smoked in the past 12 months: Yes Number of Cigarettes Smoked Daily: 4 Cigars Per Day: 5 'Breaking Loose' booklet given: 08/07/17 Hx Alcohol Use: No Drug/Substance Use Hx: No Substance Use Type: None Hx Substance Use Treatment: Yes ([facility] 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) Review of Systems - Review of Systems Constitutional: Yes: Chills, Night Sweats. No: Fever Respiratory: Yes: Cough *Physical Exam - Vital Signs Last Vital Signs Temp Pulse Resp BP Pulse Ox 98.5 F 70 18 97/65 98 01/22/19 18:50 01/22/19 18:50 01/22/19 18:50 01/22/19 18:50 01/22/19 18:50 - Physical Exam Comments: 01/22/19 19:49 HEAD: NC/AT EYES: Conjuntiva clear Ears: Canals and TM's normal NOSE: No d/c THROAT: Moist mucous membrances, oral pharanx clear, uvula midline NECK: Supple without adenopathy CARDIAC: S1 S2 LUNGS: CTA Full and Equal breath sounds ABDOMEN: Soft NT ND MS: Full ROM in all joints without edema NEUROLOGIC: No gross sensory or motor deficits, NVID SKIN: Normal color and temperature no lesions or rashes Moderate Sedation - Procedure Monitoring Vital Signs: Procedure Monitoring Vital Signs Temperature 98.5 F 01/22/19 18:50 Pulse Rate 70 01/22/19 18:50 Respiratory Rate 18 01/22/19 18:50 Blood Pressure 97/65 01/22/19 18:50 O2 Sat by Pulse Oximetry (%) 98 01/22/19 18:50 Medical Decision Making - Medical Decision Making 01/22/19 19:49 Patient does admit to intermittent chest pain over the last week. I will transferred to the main emergency room for further evaluation. *DC/Admit/Observation/Transfer Diagnosis at time of Disposition: Chest pain, Cough - Referrals Referrals: Chapo Iverson MD [Primary Care Provider] - - Patient Instructions - Post Discharge Activity
[2019-01-22] MEDS ORDERED: ALBUTEROL SO4 2.5/IPRATROPIUM 0.5 INH SOL 3 ML VIAL.NEB. NEB ONE (20:31)
[2019-01-22 20:39] LABS: BASO % 1.1 % (0-2.0); EOS % 4.3 % (0-4.5); HEMATOCRIT 40.8 % (32.4-45.2); HEMOGLOBIN 14.1 GM/dL (10.7-15.3); LYMPH % 42.3 % (8-40); MCH 31.5 pg (25.7-33.7); MCHC 34.5 g/dl (32.0-36.0); MEAN CELL VOLUME 91.3 fl (80-96); MEAN PLT VOLUME 7.8 fl (7.5-11.1); MONO % 6.9 % (3.8-10.2); NEUT % 45.4 % (42.8-82.8); PLATELET COUNT 272 K/MM3 (134-434); RBC 4.47 M/mm3 (3.60-5.2); WHITE BLOOD COUNT 9.1 K/mm3 (4.0-10.0)
--- NOTE | 2019-01-22 20:47 | PDOC ---
*Physical Exam - Vital Signs Last Vital Signs Temp Pulse Resp BP Pulse Ox 98.5 F 70 18 97/65 98 01/22/19 18:50 01/22/19 18:50 01/22/19 18:50 01/22/19 18:50 01/22/19 18:50 - Physical Exam General Appearance: Yes: Appropriately Dressed HEENT: positive: Other (moist cough) Respiratory/Chest: positive: Lungs Clear, Normal Breath Sounds Cardiovascular: positive: Regular Rhythm, Regular Rate Gastrointestinal/Abdominal: positive: Normal Bowel Sounds, Soft. negative: Tender Extremity: positive: Normal Capillary Refill, Normal Inspection Integumentary: positive: Warm Neurologic: positive: Fully Oriented, Alert ED Treatment Course - LABORATORY CBC & Chemistry Diagram: 01/22/19 20:15 01/22/19 20:06 - RADIOLOGY Radiology Studies Ordered: Category Date Time Status CHEST PA & LAT [RAD] Stat Radiology 01/22/19 19:54 Completed - Medications Given in the ED: ED Medications Discontinued Medications Generic Name Dose Route Start Last Admin Trade Name Aleida PRN Reason Stop Dose Admin Albuterol/Ipratropium 1 amp 01/22/19 20:31 01/22/19 20:35 Duoneb - NEB 01/22/19 20:32 1 amp ONCE ONE Administration Medical Decision Making - Medical Decision Making 01/22/19 21:03 daughter here with similar complaints. patient reports pleuritic pain oimproved after duoneb. denies fever/ chills BNP slightly elevated. other ruiz normal labs. no chest discomfort now b/p 138/ 88 will give PO lasix 20 mg x1 . patient has an appointment with Dr. patterson in 2days/ will d/ chome with strict return precautions., will treat bronchitis . *DC/Admit/Observation/Transfer Diagnosis at time of Disposition: Cough, Bronchitis - Discharge Dispostion Disposition: HOME Condition at time of disposition: Good - Prescriptions Prescriptions: Azithromycin 250 mg PO DAILY #4 tablet - Referrals Referrals: Chapo Patterson MD [Primary Care Provider] - - Patient Instructions Printed Discharge Instructions: DI for Acute Bronchitis Additional Instructions: follow up with your doctor as soon as possible take azithromycin starting tomorrow . your first dose was given today use albuterol every 4-6 hours as needed Additional Instructions: * Please call your personal physician to report your Emergency Department visit and to report your progress, if any. * If there is no improvement in symptoms in 2 days call your physician. * Return to the Emergency Department for any worsening symptoms. - Post Discharge Activity
[2019-01-22 21:03] LABS: ALBUMIN 3.8 g/dl (3.4-5.0); ALK PHOS 71 U/L (45-117); ANION GAP 10 MMOL/L (8-16); BILIRUBIN,TOTAL 0.6 mg/dL (0.2-1); BLOOD UREA NITROGEN 7 mg/dL (7-18); CALCIUM 8.5 mg/dL (8.5-10.1); CHLORIDE 97 mmol/L (98-107); CO2 29 mmol/L (21-32); GLUCOSE,RANDOM 101 mg/dL (74-106); POTASSIUM 3.9 mmol/L (3.5-5.1); SGOT/AST 122 U/L (15-37); SGPT/ALT 28 U/L (13-61); SODIUM 136 mmol/L (136-145); TOT PROT 7.8 g/dl (6.4-8.2)
[2019-01-22 21:04] LABS: INR 1.04 (0.83-1.09); PROTHROMBIN TIME (PATIENT) 12.3 SEC (9.7-13.0)
[2019-01-22] MEDS ORDERED: FUROSEMIDE 20 MG TABLET (FP) PO ONE (21:04)
[2019-01-22] MEDS ORDERED: AZITHROMYCIN 500 MG TABLET PO ONE (21:06)
[2019-01-22 21:07] LABS: ACTIVATED PTT 30.9 SECONDS (25.2-36.5)
[2019-01-22] MEDS ORDERED: FUROSEMIDE 40 MG TABLET (FP) ONE (21:21)
[2019-01-22] MEDS ORDERED: AZITHROMYCIN 500 MG TABLET ONE (21:21)
--- NOTE | 2019-01-24 13:55 | EKG ---
Test Reason : Blood Pressure : / mmHG Vent. Rate : 079 BPM Atrial Rate : 079 BPM P-R Int : 138 ms QRS Dur : 104 ms QT Int : 418 ms P-R-T Axes : 045 -40 064 degrees QTc Int : 479 ms NORMAL SINUS RHYTHM INCOMPLETE RBBB LEFT AXIS DEVIATION ABNORMAL ECG WHEN COMPARED WITH ECG OF 09-NOV-2018 12:12, QRS AXIS SHIFTED LEFT Confirmed by MD Yogi, Aniket ([id number]) on 01/24/2019 1:55:12 PM Referred By: Confirmed By:Aniket Calix MD
== END 2019-01-22 21:19 | disposition home or self-care (01) ==
LOC: JERFT 18:48 → JER 18:48
PROC: 3E0F7GC Introduction of Other Therapeutic Substance into Respiratory Tract, Via Natural or Artificial Opening (ICD-10-PCS; principal; 2019-01-22)
DX: J40 Bronchitis, not specified as acute or chronic (principal); I25.10 Atherosclerotic heart disease of native coronary artery without angina pectoris; I10 Essential (primary) hypertension; I25.2 Old myocardial infarction; E78.00 Pure hypercholesterolemia, unspecified; E11.9 Type 2 diabetes mellitus without complications; I69.812 Visuospatial deficit and spatial neglect following other cerebrovascular disease
CPT/HCPCS: 36415; 71046-TC-FY; 80053; 83880; 84484; 85025; 85610; 85730; 93005; 93010; 94640; 99282-25

== ENCOUNTER → 2019-07-18 | Outpatient (CLI) | payer OTHER | LOC: YHH 10:29 ==

== ENCOUNTER 2019-07-27 11:03 | Emergency (ER) | payer OTHER ==
[2019-07-27] MEDS ORDERED: NALOXONE HCL 0.4 MG/ML VIAL ONE (11:18)
[2019-07-27 11:26] VITALS: TEMP 99.1; BMI 33.6
--- NOTE | 2019-07-27 12:08 | PDOC ---
Attending Attestation - Resident Resident Name: DustypauShahnazLindsey - ED Attending Attestation I have performed the following: I have examined & evaluated the patient, The case was reviewed & discussed with the resident, I agree w/resident's findings & plan, Exceptions are as noted - HPI HPI: 07/27/19 12:08 59y F presents wiht opiate overdose - the patient states she has been clean for 2 years, her daughter was at [employer] talking to a coounsolor and the pt baught bag of heoin and snorted it and doesnt recall what happened afterwards. EMS was called and gave the pt narcan, the pt recalls wakingup and being brought into the ambulance. The pt denies fever/chils, cough, sob, cp, abd pain , new back pain, numbness/tingling/weakness, dysuria. p denies taking any benzos , etoh. +smoking history since 12 yr old GENERAL: The patient is awake, alert, and fully oriented, Nontoxic - in no acute distress. HEAD: Normocephalic, atraumatic. EYES: extraocular movements intact, sclera anicteric, conjunctiva clear. pupils 3mm symmetrically reactive ENT: Normal voice, Moist mucous membranes. NECK: Normal range of motion, supple LUNGS: Breath sounds equal, clear to auscultation bilaterally. No wheezes, no rhonchi, no rales. HEART: Regular rate and rhythm, normal S1 and S2 without murmur, rub or gallop. ABDOMEN: Soft, nontender, normoactive bowel sounds. No guarding, no rebound. . No CVA tenderness EXTREMITIES: Normal range of motion, no edema. No clubbing or cyanosis. No cords, erythema, or tenderness. NEUROLOGICAL: No facial assymetry, Normal speech, PSYCH: Normal mood, normal affect. SKIN: Warm, Dry, normal turgor, heroin intox with response o narcan will obseve on end tidal capnometry 07/27/19 16:29 pt doing well awake, alert pts sat slightly low, but suspect she may have underlying copd as she is a chronic smoker she has no respiratory complaints agapito dc with supprortive mangaement - Physicial Exam PE: 07/29/19 11:29 see above - Medical Decision Making 07/29/19 11:29 see above Heart Score/ECG Review - ECG Impressions Comment:: 07/27/19 13:28 Twelve-lead EKG was performed and reviewed by me. There is normal sinus rhythm with a normal rate. rate of 72 The axis is normal. The intervals are normal. There is normal R wave progression There are no ST or T wave abnormalities. Impresion: NSR
--- NOTE | 2019-07-27 12:28 | PDOC ---
History of Present Illness - General Chief Complaint: Overdose Stated Complaint: OVERDOSE Time Seen by Provider: 07/27/19 11:26 - History of Present Illness Initial Comments: 07/27/19 13:14 59yo F hx DM, smoking, and heroin abuse BIBA for heroin overdose. Pt was clean for a few months but had a fight with her daughter last night and ran into an old friend today and used. Pt used 1 bag, $10 worth, snorted, at approximately 11am. Denies other drugs, IVDU, alcohol, falls, trauma, other injuries, any complaints. Pt passed out and remembers waking up after EMS gave her 1 dose of narcan (0.4mg). Pt just feels a little sleepy now. Denies fever, chills, headache, dizziness, numbness/tingling, weakness, vision changes, shortness of breath, cough, chest pain, palpitations, leg swelling, abdominal pain, blood in stool, diarrhea, constipation, nausea, vomiting, dysuria, hematuria, SI/HI, AVH. Last overdose per chart 10/2018. Past History - Past Medical History Allergies/Adverse Reactions: Allergies Allergy/AdvReac Type Severity Reaction Status Date / Time levofloxacin [From Levaquin] Allergy Severe Hives,blist Verified 01/22/19 18:53 ers Penicillins Allergy Severe hives,blist Verified 01/22/19 18:53 ers Sulfa (Sulfonamide Allergy Severe Hives,blist Verified 01/22/19 18:53 Antibiotics) ers Home Medications: Ambulatory Orders Aspirin [Aspirin EC] 81 mg PO DAILY 08/07/16 Metoprolol Succinate [Toprol XL -] 25 mg PO BID 08/07/16 Duloxetine HCl [Cymbalta] 30 mg PO BID 05/08/18 Alprazolam 1 mg PO BID #14 tablet MDD 2 05/10/18 Escitalopram Oxalate [Lexapro -] 10 mg PO DAILY #30 tablet 05/10/18 Gabapentin 800 mg PO DAILY 07/22/18 Losartan 50Mg/Hctz 12.5MG [Hyzaar -] 1 tab PO DAILY 07/22/18 [place]-3S/Dha/Epa/Fish Oil [Vascazen Capsule] 1 gm PO BID 07/22/18 Anemia: No Asthma: No Cancer: No Cardiac Disorders: Yes ([place]) CVA: Yes (2009 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) COPD: No CHF: No Dementia: No Diabetes: Yes GI Disorders: No Disorders: No HTN: Yes Hypercholesterolemia: Yes Liver Disease: Yes (HEPATITIS C-REMISSION) Seizures: No Thyroid Disease: No - Surgical History Abdominal Surgery: No Appendectomy: No Cardiac Surgery: No Cholecystectomy: No Gastric Stapling: No GI Surgery: No Lung Surgery: No Neurologic Surgery: No Orthopedic Surgery: No - Immunization History Immunization Up to Date: Yes - Suicide/Smoking/Psychosocial Hx Smoking Status: Yes Smoking History: Current every day smoker Have you smoked in the past 12 months: Yes Number of Cigarettes Smoked Daily: 4 Cigars Per Day: 5 Information on smoking cessation initiated: No 'Breaking Loose' booklet given: 08/07/17 Hx Alcohol Use: No Drug/Substance Use Hx: Yes Substance Use Type: None Hx Substance Use Treatment: Yes ([facility] 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) Review of Systems - Review of Systems Comments:: 07/27/19 13:23 Constitutional: Positive for tired. Negative for chills, fever. HENT: Negative for sore throat, rhinorrhea, congestion. Eyes: Negative for visual disturbance. Respiratory: Negative for shortness of breath, cough, and wheezing. Cardiovascular: Negative for chest pain, palpitations, and leg swelling. Gastrointestinal: Negative for abdominal pain, blood in stool, constipation, diarrhea, nausea, and vomiting. Genitourinary: Negative for dysuria, flank pain, and hematuria. Musculoskeletal: Negative for myalgias, back pain, and neck pain. Skin: Negative for rash. Neurological: Negative for light-headedness, dizziness, weakness, numbness and headaches. Psychiatric/Behavioral: Negative for behavioral problems and confusion. *Physical Exam - Vital Signs Last Vital Signs Temp Pulse Resp BP Pulse Ox 99.1 F 83 18 130/66 95 07/27/19 11:23 07/27/19 11:23 07/27/19 11:23 07/27/19 11:23 07/27/19 11:26 - Physical Exam Comments: 07/27/19 13:23 Gen: Alert, NAD, tired-appearing. HEENT: PERRL, EOMI, MMM, NCAT. No conjunctival pallor. Sclera are non-icteric. Oropharynx is clear. CV: Regular rate and rhythm. No murmurs, rubs, or gallops. PULM: No resp distress. CTAB, no wheezes, rales, or rhonchi. ABD: soft, NT/ND, no rebound tenderness or guarding, no CVA tenderness. BACK: No TTP of c/t/l-spine. No step-offs or deformities. MSK: No bony deformities. 2+ pulses in all extremities. NEURO: AAOx3. PERRL. CN 2-12 intact. 5/5 strength in all extremities. Sensation to light touch intact in all extremities. No pronator drift. No dysmetria. No dysdiadochokinesia. No abnormal nystagmus. No skew deviation. Normal gait. EXTREMITIES: No cyanosis. No clubbing. No edema. No calf tenderness. PSYCH: Normal mood and thought pattern. No SI/HI/AVH. SKIN: Warm and dry. Normal capillary refill. No rashes. No jaundice. Heart Score/ECG Review - ECG Impressions Comment:: 07/27/19 13:28 NSR, 72bpm, QTc 470ms, normal axis, no TWI, no ST elevations or depressions Medical Decision Making - Medical Decision Making 07/27/19 13:11 59yo F hx DM, smoking, and heroin abuse BIBA for heroin overdose. Pt was clean for a few months but had a fight with her daughter last night and ran into an old friend today and used. Pt used 1 bag, $10 worth, snorted, at approximately 11am. Denies other drugs, IVDU, alcohol, falls, trauma, other injuries, any complaints. Pt passed out and remembers waking up after EMS gave her 1 dose of narcan (0.4mg). Pt just feels a little sleepy now. Denies fever, chills, headache, dizziness, numbness/tingling, weakness, vision changes, shortness of breath, cough, chest pain, palpitations, leg swelling, abdominal pain, blood in stool, diarrhea, constipation, nausea, vomiting, dysuria, hematuria, SI/HI, AVH. Last overdose per chart 10/2018. Hemodynamically stable on O2 NC, O2 sat drops to 85% on RA, afebrile, neurologically intact, lungs CTAB, asymptomatic. Will observe for 3 hours due to narcan's short half-life. Due to hypoxia and smoking hx, obtain CXR to r/o pulmonary pathologies including COPD exacerbation, PNA, or narcan-induced acute pulmonary edema. Due to DM, check finger stick. -Observe in continuous capnography and pulse oximetry for 2hrs -Finger stick BG -CXR -EKG -Dispo: d/c home pending observation/reassessment and w/u 07/27/19 13:24 POC glucometer 157 CXR wet read: no acute pathology EKG reviewed: NSR, 72bpm, QTc 470ms, normal axis, no TWI, no ST elevations or depressions 07/27/19 15:45 Pt observed in the department on continuous capnography and pulse oximetry for > 3 hours. Mental and respiratory status improved. Pt appears comfortable, sitting up and talking. Pulse 70, O2 sat 98% but drops down to 90% occasionally , while pt remains in no distress, possibly due to undiagnosed COPD - refer pulm. No further intervention required. Will dc home with PCP and pulm f/u. Return precautions given. Pt understands all dc instructions and all questions were answered. *DC/Admit/Observation/Transfer Diagnosis at time of Disposition: Heroin overdose - Discharge Dispostion Disposition: HOME Condition at time of disposition: Improved Decision to Admit order: No - Referrals Referrals: Chapo Iverson MD [Primary Care Provider] - Rishabh Van MD [Staff Physician] - - Patient Instructions Printed Discharge Instructions: DI for Drug Overdose in Adults Additional Instructions: You have been seen in the Emergency Department for your heroin overdose. You recovered with Narcan. Your EKG, chest X-ray, and sugar level show no signs concerning for an emergent condition such as a heart attack or pneumonia. Your oxygen saturation value is a little low, which we discussed could be due to COPD due to smoking - you will need further evaluation by a Blending Coordinator (lung doctor). We have given you a referral to Dr. Van - call the office to set up an appointment for within 1 week. Also follow-up with your primary care doctor within 1 week. As you know, heroin use is dangerous and can cause many dangerous health problems including but not limited to and permanent disability. Stop using heroin and follow your program recommendations. Good luck on your recovery ! Return to the ED immediately if you experience another overdose, chest pain, difficulty breathing, dizziness, or any other new or worsening symptom. - Post Discharge Activity
[2019-07-27 16:10] VITALS: BP 123/66; PULSE 87
--- NOTE | 2019-07-28 14:13 | EKG ---
Test Reason : Blood Pressure : / mmHG Vent. Rate : 072 BPM Atrial Rate : 072 BPM P-R Int : 158 ms QRS Dur : 108 ms QT Int : 430 ms P-R-T Axes : 047 -16 031 degrees QTc Int : 470 ms NORMAL SINUS RHYTHM NON-SPECIFIC INTRA-VENTRICULAR CONDUCTION DELAY WHEN COMPARED WITH ECG OF 22-JAN-2019 20:00, NO SIGNIFICANT CHANGE WAS FOUND Confirmed by FAVIO SMITH MD ([id number]) on 07/28/2019 2:13:03 PM Referred By: Confirmed By:FAVIO SMITH MD
== END 2019-07-27 16:10 | disposition home or self-care (01) ==
LOC: JER 11:03
DX: T40.1X1A Poisoning by heroin, accidental (unintentional), initial encounter (principal); R55 Syncope and collapse; Y92.038 Other place in apartment as the place of occurrence of the external cause; I25.10 Atherosclerotic heart disease of native coronary artery without angina pectoris; I10 Essential (primary) hypertension; F17.210 Nicotine dependence, cigarettes, uncomplicated; I25.2 Old myocardial infarction; E11.9 Type 2 diabetes mellitus without complications; E78.00 Pure hypercholesterolemia, unspecified; Z86.19 Personal history of other infectious and parasitic diseases; I69.812 Visuospatial deficit and spatial neglect following other cerebrovascular disease
CPT/HCPCS: 71045-TC-FY; 82962; 93005; 93010; 99283-25

== ENCOUNTER 2019-09-01 11:41 | Observation (INO) | payer OTHER ==
[2019-09-01 12:19] VITALS: BMI 34.0
--- NOTE | 2019-09-01 12:58 | PDOC ---
History of Present Illness - General Chief Complaint: Overdose Stated Complaint: OVERDOSE Time Seen by Provider: 09/01/19 12:12 History Source: Patient, Family (daughter Leatha, additional hx) Exam Limitations: No Limitations Past History - Past Medical History Allergies/Adverse Reactions: Allergies Allergy/AdvReac Type Severity Reaction Status Date / Time levofloxacin [From Levaquin] Allergy Severe Hives,blist Verified 09/01/19 12:10 ers Penicillins Allergy Severe hives,blist Verified 09/01/19 12:10 ers Sulfa (Sulfonamide Allergy Severe Hives,blist Verified 09/01/19 12:10 Antibiotics) ers Home Medications: Ambulatory Orders Aspirin [Aspirin EC] 81 mg PO DAILY 08/07/16 Metoprolol Succinate [Toprol XL -] 25 mg PO BID 08/07/16 Duloxetine HCl [Cymbalta] 30 mg PO BID 05/08/18 Alprazolam 1 mg PO BID #14 tablet MDD 2 05/10/18 Escitalopram Oxalate [Lexapro -] 10 mg PO DAILY #30 tablet 05/10/18 Gabapentin 800 mg PO DAILY 07/22/18 Losartan 50Mg/Hctz 12.5MG [Hyzaar -] 1 tab PO DAILY 07/22/18 [place]-3S/Dha/Epa/Fish Oil [Vascazen Capsule] 1 gm PO BID 07/22/18 Anemia: No Asthma: No Cancer: No Cardiac Disorders: Yes ([place]) CVA: Yes (2008 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) COPD: No CHF: No Dementia: No Diabetes: Yes GI Disorders: No Disorders: No HTN: Yes Hypercholesterolemia: Yes Liver Disease: Yes (HEPATITIS C-REMISSION) Seizures: No Thyroid Disease: No - Surgical History Abdominal Surgery: No Appendectomy: No Cardiac Surgery: No Cholecystectomy: No Gastric Stapling: No GI Surgery: No Lung Surgery: No Neurologic Surgery: No Orthopedic Surgery: No - Immunization History Immunization Up to Date: Yes - Psycho Social/Smoking Cessation Hx Smoking Status: Yes Smoking History: Never smoked Have you smoked in the past 12 months: No Number of Cigarettes Smoked Daily: 4 Cigars Per Day: 5 Information on smoking cessation initiated: No 'Breaking Loose' booklet given: 08/07/17 Hx Alcohol Use: No Drug/Substance Use Hx: No Substance Use Type: None Hx Substance Use Treatment: Yes ([facility] 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) *Physical Exam - Vital Signs Last Vital Signs Temp Pulse Resp BP Pulse Ox 98.1 F 85 18 133/90 95 09/01/19 11:41 09/01/19 11:41 09/01/19 11:41 09/01/19 11:41 09/01/19 12:20 Heart Score/ECG Review - History History: Slightly suspicious - Electrocardiogram EKG: Normal - Age Age: 45-65 - Risk Factors Risk Factors Heart Score: Yes Hx Hypertension, Yes Hx Diabetes, Yes Smoking History Based on the list above the patient has:: >/=3 risk factors or Hx atherosclerotic disease - Troponin Troponin: </= normal limit - Score Heart Score - Total: 3 ED Treatment Course - LABORATORY CBC & Chemistry Diagram: 09/01/19 13:00 09/01/19 13:00 - RADIOLOGY Radiology Studies Ordered: Category Date Time Status HEAD CT WITHOUT CONTRAST [CT] Stat CT Scan 09/01/19 12:44 Ordered CHEST X-RAY PORTABLE* [RAD] Stat Radiology 09/01/19 12:44 Ordered Medical Decision Making - Medical Decision Making 09/01/19 12:54 HPI: 59F PMH T2DM, HTN, HCV, Pulm HTN, [place], CVA w/ residual right sided deficits BIBEMS after being found unresponsive by daughter. Pt states she snorted 1 bag of heroin, felt shaky, and walked into kitchen. Pt daughter found pt down in kitchen 15 mins after last sighting and could not feel a pulse. Daughter initiated chest compressions and gave 8mg intranasal narcan. Pt subsequently became responsive and brought to the ED. During episode, patient lost urinary continence. Patient denies headache, head pain, lightheadedness, numbness, tingling, chest pain, sob, n/v/abd pain. Pt endorses chest heaviness. Denies SA/ SI/HI/AVH. Denies coingestion. spoke to daughter, Leatha ([phone]), for further hx PMH: see chart MEDS: see chart, patient states she is "on a bunch" Allergies reviewed ROS: CONSTITUTIONAL: Denies F / C HEENT: Denies headache, lightheadedness, dizziness, changes in vision / hearing. RESP: Denies SOB CARD: Endorses chest heaviness. Denies chest pain GI: Denies N / V / D, abdominal pain NEURO: Denies numbness, tingling, weakness PE: GEN: Well appearing, NAD, comfortable. AAOx3 HEENT: NC/AT, EOMI, PERRLA. CN II-XII intact. No facial asymmetry. Moist mucous membranes. Normal voice. Supple neck w/ FROM. CV: S1/S2, RRR, no m/r/g LUNG: CTAB, no wheezes, crackles, rales, rhonchi. GI: soft, ndnt, +BS, no guarding, no rebound. No masses. EXTREMITIES: No LE edema. No obvious deformities of all extremities. SKIN: warm, dry, normal turgor PSYCH: normal mood and affect, pleasant. NEURO: Moving all extremities well. Sensation grossly intact and equal. MDM: 59F BIBEMS after being found unresponsive after snorting heroin w/ return to baseline s/p 4mg intranasal narcan x2. Endorsing chest heaviness w/ significant cardiac hx. Heroin OD - CBC, CMP, UTOX - CT Head since + LOC and unknown head strike - CXR to eval for pulm edema associated w/ narcan Chest heaviness - CXR, EKG, Cardiac, BNP 09/01/19 14:45 labs and imaging reviewed - initial trop neg - BNP wnl - CXR report: - 2 views of the chest reveal clear lungs, prominent knob, normal dariela and normal heart. The angles are sharp. Soft tissues are intact. There are degenerative changes with wedging. Since 07/27/2019, there is no change of an adverse nature. Correlation recommended. - CT head report: - No significant interval change or gross acute intracranial pathology is identified. - Correlate clinically to determine further evaluation and follow-up. - EKG today HR 85 IL 162 QRS 106 QTc 485 NSR - HEART Score: 3 Given cardiac hx and pt endorsing chest heaviness, would like to observe Discussed results and plan w/ patient, is amenable to telemetry/obs Patient is feeling well 09/01/19 15:[address] Iverson's answering service who has left message 09/01/19 15:[address] Galvez covering for Dr. Iverson; admitted to tele/obs // Observation - Telemetry Discharge - Discharge Information Problems reviewed: Yes Clinical Impression/Diagnosis: Heroin overdose Qualifiers: Encounter type: subsequent encounter Injury intent: undetermined intent Qualified Code(s): T40.1X4D - Poisoning by heroin, undetermined, subsequent encounter - Follow up/Referral Referrals: Chapo Iverson MD [Primary Care Provider] - - Patient Discharge Instructions - Post Discharge Activity
[2019-09-01 13:20] LABS: BASO % 0.8 % (0-2.0); EOS % 0.8 % (0-4.5); HEMATOCRIT 39.8 % (32.4-45.2); HEMOGLOBIN 12.8 GM/dL (10.7-15.3); LYMPH % 10.6 % (8-40); MCH 30.1 pg (25.7-33.7); MCHC 32.2 g/dl (32.0-36.0); MEAN CELL VOLUME 93.4 fl (80-96); MEAN PLT VOLUME 7.7 fl (7.5-11.1); MONO % 5.8 % (3.8-10.2); PLATELET COUNT 206 K/MM3 (134-434); RBC 4.26 M/mm3 (3.60-5.2); RDW 14.5 % (11.6-15.6)
--- NOTE | 2019-09-01 13:35 | PDOC ---
Documentation entered by Audrey Cary SCRIBE, acting as scribe for Todd Robledo MD. Todd Robledo MD: This documentation has been prepared by the Luis Daniel wen Adrianna, SCRIBE, under my direction and personally reviewed by me in its entirety. I confirm that the documentation accurately reflects all work, treatment, procedures, and medical decision making performed by me. Attending Attestation - Resident Resident Name: ReynaldoAlfonso - ED Attending Attestation I have performed the following: I have examined & evaluated the patient, The case was reviewed & discussed with the resident, I agree w/resident's findings & plan, Exceptions are as noted - HPI HPI: The patient is a 59 year old female, with a significant PMH of heroin abuse, HTN , HLD, Hepatitis C, and DM, [facility]. Patient was found unresponsive by her daughter after snorting a bag of heroin. Daughter notes that ~15 minutes passed prior to patient's LOC. Upon EMS arrival, chest compressions were started and 8mg of narcan was administered. Patient became responsive, and now complains of chest heaviness. Denies SOB. Denies leg swelling. Pt denies any coingestions. Denies any SI/HI/AVH. Allergies: Levofloxacin, penicillins, sulfa Surgical History: None reported Social History: Heroin abuse. Current daily smoker. - Physicial Exam PE: GENERAL: Awake, alert, and fully oriented, in no acute distress. HEAD: No signs of trauma EYES: PERRLA, EOMI, sclera anicteric, conjunctiva clear ENT: Auricles normal inspection, hearing grossly normal, nares patent, oropharynx clear without exudates. Moist mucosa NECK: Nontender, no stepoffs, Normal ROM, supple, no lymphadenopathy, JVD, or masses LUNGS: Breath sounds equal, clear to auscultation bilaterally. No wheezes, and no crackles HEART: Regular rate and rhythm, normal S1 and S2, no murmurs, rubs or gallops ABDOMEN: Soft, nontender, normoactive bowel sounds. No guarding, no rebound. No masses EXTREMITIES: Normal range of motion, no edema. No clubbing or cyanosis. No cords, erythema, or tenderness NEUROLOGICAL: Cranial nerves II through XII intact. 5/5 strength and sensation in all extremities, Normal speech, normal gait, normal cerebellar function SKIN: Warm, Dry, normal turgor, no rashes or lesions noted. - Medical Decision Making 09/01/19 13:13 59 F who was found unresponsive by daughter, likely 2/2 heroin overdose, now awake and alert in ED s/p narcan. Pt received chest compressions in the field, now with chest pressure. Will evaluate for ACS. EKG without ischemic changes. Also consider narcan-induced pulmonary edema. - Labs, trop, BNP - CXR - Monitor in ED
[2019-09-01 13:52] LABS: BILIRUBIN,TOTAL 0.2 mg/dL (0.2-1); BLOOD UREA NITROGEN 8.6 mg/dL (7-18); CALCIUM 8.8 mg/dL (8.5-10.1); CREATININE 0.9 mg/dL (0.55-1.3); N-TERMINAL BNP 90.8 pg/ml (5-125); POTASSIUM 4.3 mmol/L (3.5-5.1); TOT PROT 7.2 g/dl (6.4-8.2)
--- NOTE | 2019-09-01 16:45 | CON.CARD ---
Consult Consult Specialty:: Cardiology Reason for Consultation:: Drug OD. Needed CPR - History of Present Illness Chief Complaint: Chest soarness S/P CPR History of Present Illness: This is a 59 year old female with a PMH of DM2, HTN, HCV, Pulm HTN, [place], and past CVA's. She has a history of polysubstance abuse. She states she snorted 1 bag of heroin, felt shaky, and walked into kitchen. Pt daughter found pt down in kitchen 15 mins after last sighting and could not feel a pulse. Daughter initiated chest compressions and gave 8mg intranasal narcan. Pt subsequently became responsive and brought to the ED. 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: CVA (optic CVA w/ partial vision loss), Peripheral Neuropathy, Other ( right optical embolic CVA with residual partial visual loss ) Cardio/Vascular: Yes: HTN Gastrointestinal: Yes: Diverticulosis Hepatobiliary: Yes: Hepatitis C Renal/: Yes: Other Psych: Yes: Addictions, Anxiety, Depression Musculoskeletal: Yes: Chronic low back pain, Other (sciatica) Endocrine: Yes: Diabetes Mellitus - Past Surgical History Past Surgical History: Yes: Colonoscopy, Tonsillectomy - Alcohol/Substance Use Hx Alcohol Use: No History of Substance Use: reports: Heroin (snorted heroin in the past), Prescription (xanax) - Smoking History Smoking history: Never smoked Have you smoked in the past 12 months: No Aproximately how many cigarettes per day: 4 - Social History Usual Living Arrangement: Alone ADL: Independent 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 History of Recent Travel: No Home Medications - Allergies Allergies/Adverse Reactions: Allergies Allergy/AdvReac Type Severity Reaction Status Date / Time levofloxacin [From Levaquin] Allergy Severe Hives,blist Verified 09/01/19 12:10 ers Penicillins Allergy Severe hives,blist Verified 09/01/19 12:10 ers Sulfa (Sulfonamide Allergy Severe Hives,blist Verified 09/01/19 12:10 Antibiotics) ers - Home Medications Home Medications: Ambulatory Orders Aspirin [Aspirin EC] 81 mg PO DAILY 08/07/16 Metoprolol Succinate [Toprol XL -] 25 mg PO BID 08/07/16 Duloxetine HCl [Cymbalta] 30 mg PO BID 05/08/18 Alprazolam 1 mg PO BID #14 tablet MDD 2 05/10/18 Escitalopram Oxalate [Lexapro -] 10 mg PO DAILY #30 tablet 05/10/18 Gabapentin 800 mg PO DAILY 07/22/18 Losartan 50Mg/Hctz 12.5MG [Hyzaar -] 1 tab PO DAILY 07/22/18 [place]-3S/Dha/Epa/Fish Oil [Vascazen Capsule] 1 gm PO BID 07/22/18 Vital Signs: Vital Signs Temperature 98.1 F 09/01/19 11:41 Pulse Rate 85 09/01/19 11:41 Respiratory Rate 18 09/01/19 11:41 Blood Pressure 133/90 09/01/19 11:41 O2 Sat by Pulse Oximetry (%) 95 09/01/19 12:20 Constitutional: Yes: No Distress Eyes: Yes: WNL HENT: Yes: WNL Neck: Yes: WNL Respiratory: Yes: CTA Bilaterally Gastrointestinal: Yes: Soft Cardiovascular: Yes: Regular Rate and Rhythm Heart Sounds: Yes: S1, S2 Extremities: Yes: WNL Edema: No Neurological: Yes: Alert, Oriented - Other Data Labs, Other Data: CBC, BMP 09/01/19 13:00 09/01/19 13:00 Troponin, BNP 09/01/19 13:00 Troponin I 0.02 B-Natriuretic Peptide 90.8 Troponin, BNP 09/01/19 13:00 Troponin I 0.02 B-Natriuretic Peptide 90.8 Assessment/Plan 59 year old female with a PMH of DM2, HTN, HCV, Pulm HTN, [place], and past CVA's. She has a history of polysubstance abuse. She states she snorted 1 bag of heroin , felt shaky, and walked into kitchen. Pt daughter found pt down in kitchen 15 mins after last sighting and could not feel a pulse. Daughter initiated chest compressions and gave 8mg intranasal narcan. Pt subsequently became responsive and brought to the ED. Chest Pain Likely the result of CPR Trop x 1 negative Serial EKG's Continue home meds Obtain echocardiogram Home Medications Medication Instructions Recorded Aspirin [Aspirin EC] 81 mg PO DAILY 08/07/16 Metoprolol Succinate [Toprol XL -] 25 mg PO BID 08/07/16 Duloxetine HCl [Cymbalta] 30 mg PO BID 05/08/18 Alprazolam 1 mg PO BID #14 tablet MDD 2 05/10/18 Escitalopram Oxalate [Lexapro -] 10 mg PO DAILY #30 tablet 05/10/18 Gabapentin 800 mg PO DAILY 07/22/18 Losartan 50Mg/Hctz 12.5MG [Hyzaar 1 tab PO DAILY 07/22/18 -] [place]-3S/Dha/Epa/Fish Oil 1 gm PO BID 07/22/18 [Vascazen Capsule]
[2019-09-01] MEDS ORDERED: ALPRAZolam 1 MG TABLET PO PRN (16:54)
--- NOTE | 2019-09-01 16:54 | HP ---
Admitting History and Physical - Primary Care Physician PCP: Chapo Iverson - Admission Chief Complaint: amber in by ambulance History of Present Illness: This is a 59 year old female with a PMH of DM2, HTN, HCV, Pulm HTN, [place], and past CVA's. She has a history of polysubstance abuse. She states she snorted 1 bag of heroin, felt shaky, and walked into kitchen. Pt daughter found pt down in kitchen 15 mins after last sighting and could not feel a pulse. Daughter initiated chest compressions and gave 8mg intranasal narcan. Pt subsequently became responsive and brought to the ED. patient last took heroine 3 months ago and has been getting therpy and in discussion with her PMD regarding detox therapy but she feels she is not ready at this time, she takes drugs when she feels very depressed. 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 ) Cardiovascular: Yes: HTN Gastrointestinal: Yes: Diverticulosis Hepatobiliary: Yes: Hepatitis C Renal/: Yes: Other Heme/Onc: Yes: Other (Factor V leiden) Psych: Yes: Addictions, Anxiety, Depression Musculoskeletal: Yes: Chronic low back pain, Other (sciatica) Endocrine: Yes: Diabetes Mellitus - Past Surgical History Past Surgical History: Yes: Colonoscopy, Tonsillectomy - Smoking History Smoking history: Never smoked Have you smoked in the past 12 months: No Aproximately how many cigarettes per day: 4 - Alcohol/Substance Use Hx Alcohol Use: No History of Substance Use: reports: Heroin (snorted heroin in the past), Prescription (xanax) - Social History ADL: Independent 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 History of Recent Travel: No Home Medications - Allergies Allergies/Adverse Reactions: Allergies Allergy/AdvReac Type Severity Reaction Status Date / Time levofloxacin [From Levaquin] Allergy Severe Hives,blist Verified 09/01/19 12:10 ers Penicillins Allergy Severe hives,blist Verified 09/01/19 12:10 ers Sulfa (Sulfonamide Allergy Severe Hives,blist Verified 09/01/19 12:10 Antibiotics) ers - Home Medications Home Medications: Ambulatory Orders Aspirin [Aspirin EC] 81 mg PO DAILY 08/07/16 Metoprolol Succinate [Toprol XL -] 25 mg PO BID 08/07/16 Duloxetine HCl [Cymbalta] 30 mg PO BID 05/08/18 Alprazolam 1 mg PO BID #14 tablet MDD 2 05/10/18 Escitalopram Oxalate [Lexapro -] 10 mg PO DAILY #30 tablet 05/10/18 Gabapentin 800 mg PO DAILY 07/22/18 Losartan 50Mg/Hctz 12.5MG [Hyzaar -] 1 tab PO DAILY 07/22/18 [place]-3S/Dha/Epa/Fish Oil [Vascazen Capsule] 1 gm PO BID 07/22/18 Review of Systems - Review of Systems Cardiovascular: reports: Chest Pain Physical Examination Vital Signs: Vital Signs Temperature 98.1 F 09/01/19 11:41 Pulse Rate 85 09/01/19 11:41 Respiratory Rate 18 09/01/19 11:41 Blood Pressure 133/90 09/01/19 11:41 O2 Sat by Pulse Oximetry (%) 95 09/01/19 12:20 Constitutional: Yes: Calm Neck: Yes: Trachea Midline Cardiovascular: Yes: Regular Rate and Rhythm Respiratory: Yes: CTA Bilaterally Gastrointestinal: Yes: Normal Bowel Sounds, Soft Edema: No Labs: CBC, BMP 09/01/19 13:00 09/01/19 13:00 Problem List - Problems (1) Heroin overdose Assessment/Plan: with resultant chest pain appreciate cardiology eval tele observation trend trop 3 sets echo inc wbc is probably secondary to stress Code(s): T40.1X1A - POISONING BY HEROIN, ACCIDENTAL (UNINTENTIONAL), INIT ENCNTR Qualifiers: Encounter type: subsequent encounter Injury intent: undetermined intent Qualified Code(s): T40.1X4D - Poisoning by heroin, undetermined, subsequent encounter (2) Anxiety Assessment/Plan: alprazolam Code(s): F41.9 - ANXIETY DISORDER, UNSPECIFIED (3) Hypertension Assessment/Plan: metorpolol losartan Code(s): I10 - ESSENTIAL (PRIMARY) HYPERTENSION Qualifiers: Hypertension type: essential hypertension Qualified Code(s): I10 - Essential (primary) hypertension
[2019-09-01] MEDS ORDERED: DULoxetine HCL 30 MG CAPSULE.DR PO SCH (17:00)
[2019-09-01] MEDS ORDERED: ALPRAZolam 1 MG TABLET ONE (20:54)
[2019-09-01 21:25] LABS: BASO % 0.6 % (0-2.0); EOS % 1.3 % (0-4.5); HEMATOCRIT 36.5 % (32.4-45.2); HEMOGLOBIN 11.8 GM/dL (10.7-15.3); LYMPH % 29.8 % (8-40); MCH 30.2 pg (25.7-33.7); MCHC 32.2 g/dl (32.0-36.0); MEAN CELL VOLUME 93.7 fl (80-96); MONO % 7.2 % (3.8-10.2); NEUT % 61.1 % (42.8-82.8); PLATELET COUNT 201 K/MM3 (134-434); RBC 3.89 M/mm3 (3.60-5.2); RDW 14.7 % (11.6-15.6); WHITE BLOOD COUNT 11.1 K/mm3 (4.0-10.0)
[2019-09-01 21:32] LABS: PROTHROMBIN TIME (PATIENT) 11.8 SEC (9.7-13.0)
[2019-09-01 21:51] LABS: CHOLESTEROL 203 mg/dL (50-200); HDL CHOLESTEROL 49 mg/dL (40-60); LDL CHOLESTEROL (ONLY SJRH) 129 mg/dL (5-100); TRIGLYCERIDES 191 mg/dL (0-150)
[2019-09-01 21:53] LABS: ALK PHOS 54 U/L (45-117); ANION GAP 5 MMOL/L (8-16); BILIRUBIN,TOTAL 0.2 mg/dL (0.2-1); BLOOD UREA NITROGEN 9.5 mg/dL (7-18); CALCIUM 7.3 mg/dL (8.5-10.1); CHLORIDE 112 mmol/L (98-107); CO2 27 mmol/L (21-32); CREATININE 0.8 mg/dL (0.55-1.3); GLUCOSE,RANDOM 85 mg/dL (74-106); POTASSIUM 3.3 mmol/L (3.5-5.1); SGOT/AST 12 U/L (15-37); SGPT/ALT 14 U/L (13-61); SODIUM 145 mmol/L (136-145); TOT PROT 5.4 g/dl (6.4-8.2)
[2019-09-02 07:43] LABS: HEMATOCRIT 37.4 % (32.4-45.2); HEMOGLOBIN 12.3 GM/dL (10.7-15.3); MCH 30.8 pg (25.7-33.7); MCHC 32.8 g/dl (32.0-36.0); MEAN CELL VOLUME 93.8 fl (80-96); MEAN PLT VOLUME 7.7 fl (7.5-11.1); PLATELET COUNT 194 K/MM3 (134-434); RBC 3.99 M/mm3 (3.60-5.2); RDW 14.5 % (11.6-15.6); WHITE BLOOD COUNT 7.1 K/mm3 (4.0-10.0)
[2019-09-02] MEDS ORDERED: DULoxetine HCL 30 MG CAPSULE.DR PO SCH (08:00)
[2019-09-02 08:07] LABS: INR 0.96 (0.83-1.09); PROTHROMBIN TIME (PATIENT) 11.3 SEC (9.7-13.0)
[2019-09-02 08:08] VITALS: TEMP 97.8
[2019-09-02 08:09] LABS: ACTIVATED PTT 32.5 SECONDS (25.2-36.5)
[2019-09-02] MEDS ORDERED: ASPIRIN 81 MG CHEWABLE TABLETS ONE (08:17)
[2019-09-02] MEDS ORDERED: LOSARTAN POTASSIUM 50 MG TABLET (FP) ONE (08:17)
[2019-09-02] MEDS ORDERED: METOPROLOL TARTRATE 25 MG TABLET (FP) ONE (08:17)
[2019-09-02] MEDS ORDERED: DULoxetine HCL 30 MG CAPSULE.DR PO ONE (08:18)
[2019-09-02 08:22] LABS: ALBUMIN 3.6 g/dl (3.4-5.0); BILIRUBIN,TOTAL 0.4 mg/dL (0.2-1); CALCIUM 8.7 mg/dL (8.5-10.1); CREATININE 0.9 mg/dL (0.55-1.3); MAGNESIUM 2.2 mg/dL (1.8-2.4); PHOSPHOROUS 4.1 mg/dL (2.5-4.9); TOT PROT 6.7 g/dl (6.4-8.2)
--- NOTE | 2019-09-02 08:49 | PN ---
Progress Note, Physician - Current Medication List Current Medications: Active Medications Alprazolam (Xanax) 1 mg PO Q12H PRN PRN Reason: ANXIETY Last Admin: 09/01/19 21:01 Dose: 1 mg Aspirin (Asa -) 81 mg PO DAILY [facility] Duloxetine HCl (Cymbalta -) 30 mg PO DAILY@0800 [facility] Last Admin: 09/02/19 08:05 Dose: 30 mg Losartan Potassium (Cozaar -) 50 mg PO DAILY [facility] Metoprolol Tartrate (Lopressor -) 25 mg PO DAILY [facility] - Objective Vital Signs: Vital Signs Temperature 97.8 F 09/02/19 08:07 Pulse Rate 73 09/02/19 08:07 Respiratory Rate 17 09/02/19 08:07 Blood Pressure 126/93 09/02/19 08:07 O2 Sat by Pulse Oximetry (%) 93 L 09/02/19 08:07 Labs: CBC, BMP 09/02/19 07:25 09/02/19 07:25 INR, PTT INR 0.96 (0.83-1.09) 09/02/19 07:25
[2019-09-02] MEDS ORDERED: METOPROLOL TARTRATE 25 MG TABLET (FP) PO SCH (10:00)
[2019-09-02] MEDS ORDERED: ASPIRIN 81 MG CHEWABLE TABLETS PO SCH (10:00)
[2019-09-02] MEDS ORDERED: LOSARTAN POTASSIUM 50 MG TABLET (FP) PO SCH (10:00)
--- NOTE | 2019-09-02 10:37 | PN ---
Progress Note, Physician Chief Complaint: still chest soreness tele neg wants to leave AMA. History of Present Illness: 59 year old female with a PMH of DM2, HTN, HCV, Pulm HTN, [place], and past CVA's. She has a history of polysubstance abuse. She states she snorted 1 bag of heroin , felt shaky, and walked into kitchen. Pt daughter found pt down in kitchen 15 mins after last sighting and could not feel a pulse. Daughter initiated chest compressions and gave 8mg intranasal narcan. Pt subsequently became responsive and brought to the ED. - Current Medication List Current Medications: Active Medications Alprazolam (Xanax) 1 mg PO Q12H PRN PRN Reason: ANXIETY Last Admin: 09/01/19 21:01 Dose: 1 mg Aspirin (Asa -) 81 mg PO DAILY [facility] Last Admin: 09/02/19 09:31 Dose: 81 mg Duloxetine HCl (Cymbalta -) 30 mg PO DAILY@0800 [facility] Last Admin: 09/02/19 08:05 Dose: 30 mg Losartan Potassium (Cozaar -) 50 mg PO DAILY [facility] Last Admin: 09/02/19 09:31 Dose: 50 mg Metoprolol Tartrate (Lopressor -) 25 mg PO DAILY [facility] Last Admin: 09/02/19 09:31 Dose: 25 mg - Objective Vital Signs: Vital Signs Temperature 97.8 F 09/02/19 08:07 Pulse Rate 73 09/02/19 08:07 Respiratory Rate 17 09/02/19 08:07 Blood Pressure 126/93 09/02/19 08:07 O2 Sat by Pulse Oximetry (%) 93 L 09/02/19 08:07 Constitutional: Yes: Well Nourished, No Distress Eyes: Yes: Conjunctiva Clear, EOM Intact HENT: Yes: Normocephalic Neck: Yes: Trachea Midline Cardiovascular: Yes: Regular Rate and Rhythm, Other (chest wall tenderness) Respiratory: Yes: CTA Bilaterally Gastrointestinal: Yes: Normal Bowel Sounds, Soft Extremities: Yes: WNL Edema: No Peripheral Pulses WNL: Yes Labs: CBC, BMP 09/02/19 07:25 09/02/19 07:25 INR, PTT INR 0.96 (0.83-1.09) 09/02/19 07:25 Assessment/Plan 59 year old female with a PMH of DM2, HTN, HCV, Pulm HTN, [place], and past CVA's. She has a history of polysubstance abuse. She states she snorted 1 bag of heroin , felt shaky, and walked into kitchen. Pt daughter found pt down in kitchen 15 mins after last sighting and could not feel a pulse. Daughter initiated chest compressions and gave 8mg intranasal narcan. Pt subsequently became responsive and brought to the ED. Chest Pain Likely the result of CPR Trop negative Serial EKG's no change Continue home meds Obtain echocardiogram, can be done as outpatient.
--- NOTE | 2019-09-02 12:02 | DS ---
Physical Examination Vital Signs: Vital Signs Temperature 97.8 F 09/02/19 08:07 Pulse Rate 73 09/02/19 08:07 Respiratory Rate 17 09/02/19 08:07 Blood Pressure 126/93 09/02/19 08:07 O2 Sat by Pulse Oximetry (%) 93 L 09/02/19 08:07 Findings/Remarks: no distress wants to go home Constitutional: Yes: No Distress Cardiovascular: Yes: Regular Rate and Rhythm Respiratory: Yes: WNL Gastrointestinal: Yes: WNL Neurological: Yes: WNL Labs: CBC, BMP 09/02/19 07:25 09/02/19 07:25 Discharge Summary Problems reviewed: Yes Reason For Visit: RULED OUT FOR MYOCARDIAL INFARCTION Current Active Problems Heroin overdose (Acute) Procedures: Principal: ct head, labs xrays Hospital Course: admitted for heroin overdose , monitored here for [address] head negative Health Concerns: refusing placement to detox center, will come to my office wednesday to discuss outpatient plan of treatment at [facility] Plan of Treatment: see dr iverson wednesday afternoon 2pm Goals: OUTPATIENT DETOX/[facility] PSYCHIATRY ENROLLMENT COMPLETED Condition: Improved - Instructions Diet, Activity, Other Instructions: SEE DR IVERSON 2PM WednesdayAugust Referrals: Chapo Iverson MD [Primary Care Provider] - Disposition: HOME - Home Medications Comprehensive Discharge Medication List: Ambulatory Orders Aspirin [Aspirin EC] 81 mg PO DAILY 08/07/16 Metoprolol Succinate [Toprol XL -] 25 mg PO BID 08/07/16 Duloxetine HCl [Cymbalta] 30 mg PO BID 05/08/18 Alprazolam 1 mg PO BID #14 tablet MDD 2 05/10/18 Escitalopram Oxalate [Lexapro -] 10 mg PO DAILY #30 tablet 05/10/18 Gabapentin 800 mg PO DAILY 07/22/18 Losartan 50Mg/Hctz 12.5MG [Hyzaar -] 1 tab PO DAILY 07/22/18 [place]-3S/Dha/Epa/Fish Oil [Vascazen Capsule] 1 gm PO BID 07/22/18 Prescription Drug Monitoring Program (I-STOP) results: I-STOP not reviewed
[2019-09-02 12:03] VITALS: BP 133/81; PULSE 62
--- NOTE | 2019-09-02 14:59 | EKG ---
Test Reason : Blood Pressure : / mmHG Vent. Rate : 076 BPM Atrial Rate : 076 BPM P-R Int : 150 ms QRS Dur : 108 ms QT Int : 420 ms P-R-T Axes : 025 010 042 degrees QTc Int : 472 ms NORMAL SINUS RHYTHM INCOMPLETE RIGHT BUNDLE BRANCH BLOCK POSSIBLE LATERAL INFARCT , AGE UNDETERMINED ABNORMAL ECG WHEN COMPARED WITH ECG OF 01-SEP-2019 12:06, BORDERLINE CRITERIA FOR LATERAL INFARCT ARE NOW PRESENT Confirmed by Anu Pappas ([id number]) on 09/02/2019 2:58:51 PM Referred By: Confirmed By:Anu Pappas
--- NOTE | 2019-09-03 08:28 | EKG ---
Test Reason : Blood Pressure : / mmHG Vent. Rate : 085 BPM Atrial Rate : 085 BPM P-R Int : 162 ms QRS Dur : 106 ms QT Int : 408 ms P-R-T Axes : 052 -11 040 degrees QTc Int : 485 ms NORMAL SINUS RHYTHM PROLONGED QT ABNORMAL ECG WHEN COMPARED WITH ECG OF 27-JUL-2019 13:12, NO SIGNIFICANT CHANGE WAS FOUND Confirmed by Anu Pappas ([id number]) on 09/03/2019 8:28:24 AM Referred By: Confirmed By:Anu Pappas
== END 2019-09-02 12:03 | disposition home or self-care (01) ==
LOC: JER 11:41 → JERBED 15:56 → INTOOBSV 15:56
PROVIDERS: ADMIT Student in an Organized Health Care Education/Training Program; ATTEND Student in an Organized Health Care Education/Training Program
DX: T40.1X1A Poisoning by heroin, accidental (unintentional), initial encounter (principal); F11.10 Opioid abuse, uncomplicated; R07.89 Other chest pain; Y92.9 Unspecified place or not applicable; I10 Essential (primary) hypertension; E78.5 Hyperlipidemia, unspecified; B18.2 Chronic viral hepatitis C; E11.9 Type 2 diabetes mellitus without complications; I69.398 Other sequelae of cerebral infarction; I25.2 Old myocardial infarction; G62.9 Polyneuropathy, unspecified; M54.40 Lumbago with sciatica, unspecified side; M89.29 Other disorders of bone development and growth, multiple sites; F41.9 Anxiety disorder, unspecified; F32.9 Major depressive disorder, single episode, unspecified
CPT/HCPCS: 36415; 70450-TC; 71046-TC-FY; 80053; 80061; 80307; 82550; 83721; 83735; 83880; 84100; 84443; 84484; 85025; 85027; 85610; 85730; 93005; 93010; 99285-25; G0378

== ENCOUNTER 2019-12-20 12:24 | Emergency (ER) | payer OTHER ==
--- NOTE | 2019-12-20 12:45 | PDOC ---
Rapid Medical Evaluation Time Seen by Provider: 12/20/19 12:40 Medical Evaluation: Allergies Allergy/AdvReac Type Severity Reaction Status Date / Time levofloxacin [From Levaquin] Allergy Severe Hives,blist Verified 09/01/19 12:10 ers Penicillins Allergy Severe hives,blist Verified 09/01/19 12:10 ers Sulfa (Sulfonamide Allergy Severe Hives,blist Verified 09/01/19 12:10 Antibiotics) ers 12/20/19 12:40 CC: nasal pain s/p fall OOB and striking bedside table. -LOC. PE: TTP left inferior orbit. Swelling to bridge of nose. No midline Cervical tenderness. Orders: Facial bones CT Patient will proceed to the ED for further evaluation. Discharge Disposition - Diagnosis Facial pain, acute - Referrals - Patient Instructions - Post Discharge Activity
[2019-12-20 12:46] VITALS: BP 161/79; PULSE 84; TEMP 97.7; BMI 33.6
--- NOTE | 2019-12-20 14:35 | PDOC ---
History of Present Illness - General Chief Complaint: Injury Stated Complaint: FALL Time Seen by Provider: 12/20/19 12:40 - History of Present Illness Initial Comments: 12/20/19 14:33 59-year-old female with a past medical history of diabetes hypertension dyslipidemia and prior TIA and CVAs presents for evaluation after a fall. Patient slipped out of bed hit her face on the nightstand nosebleed was controlled with direct pressure she complains of left-sided facial pain no headaches post injury nausea vomiting or visual changes no loss of consciousness. She takes aspirin Past History - Past Medical History Allergies/Adverse Reactions: Allergies Allergy/AdvReac Type Severity Reaction Status Date / Time levofloxacin [From Levaquin] Allergy Severe Hives,blist Verified 09/01/19 12:10 ers Penicillins Allergy Severe hives,blist Verified 09/01/19 12:10 ers Sulfa (Sulfonamide Allergy Severe Hives,blist Verified 09/01/19 12:10 Antibiotics) ers ciprofloxacin [From Cipro] Allergy Verified 12/20/19 12:41 Home Medications: Ambulatory Orders Aspirin [Aspirin EC] 81 mg PO DAILY 08/07/16 Metoprolol Succinate [Toprol XL -] 25 mg PO BID 08/07/16 Duloxetine HCl [Cymbalta] 30 mg PO BID 05/08/18 Alprazolam 1 mg PO BID #14 tablet MDD 2 05/10/18 Escitalopram Oxalate [Lexapro -] 10 mg PO DAILY #30 tablet 05/10/18 Gabapentin 800 mg PO DAILY 07/22/18 Losartan 50Mg/Hctz 12.5MG [Hyzaar -] 1 tab PO DAILY 07/22/18 [place]-3S/Dha/Epa/Fish Oil [Vascazen Capsule] 1 gm PO BID 07/22/18 Anemia: No Asthma: No Cancer: No Cardiac Disorders: Yes ([place]) CVA: Yes (2008 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) COPD: No CHF: No Dementia: No Diabetes: Yes GI Disorders: No Disorders: No HTN: Yes Hypercholesterolemia: Yes Liver Disease: Yes (HEPATITIS C-REMISSION) Seizures: No Thyroid Disease: No - Surgical History Abdominal Surgery: No Appendectomy: No Cardiac Surgery: No Cholecystectomy: No Gastric Stapling: No GI Surgery: No Lung Surgery: No Neurologic Surgery: No Orthopedic Surgery: No - Immunization History Immunization Up to Date: Yes - Psycho Social/Smoking Cessation Hx Smoking Status: Yes Smoking History: Never smoked Have you smoked in the past 12 months: No Number of Cigarettes Smoked Daily: 4 Cigars Per Day: 5 'Breaking Loose' booklet given: 08/07/17 Hx Alcohol Use: No Drug/Substance Use Hx: No Substance Use Type: None Hx Substance Use Treatment: Yes ([facility] 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) Review of Systems - Review of Systems HEENTM: Yes: See HPI *Physical Exam - Vital Signs Last Vital Signs Temp Pulse Resp BP Pulse Ox 97.7 F 84 84 H 161/79 97 12/20/19 12:41 12/20/19 12:41 12/20/19 12:41 12/20/19 12:41 12/20/19 12:41 - Physical Exam 12/20/19 14:34 GENERAL: The patient is awake, alert, and fully oriented, in no acute distress. HEAD: Normal with no signs of trauma. EYES: sclera anicteric, conjunctiva clear. ENT: Ears normal tympanic membranes normal oropharynx clear uvula midline; dried blood in nares NECK: Normal range of motion LUNGS: Breath sounds equal, clear to auscultation bilaterally. No wheezes, and no crackles. HEART: S1 and S2 without murmur, rub or gallop. ABDOMEN: Soft, nontender, normoactive bowel sounds. No guarding, no rebound. No masses. EXTREMITIES: Normal range of motion, no edema. No clubbing or cyanosis. No cords, erythema, or tenderness. NEUROLOGICAL: Cranial nerves II through XII grossly intact. PSYCH: Normal mood, normal affect. SKIN: Warm, Dry, normal turgor, no rashes or lesions noted. ED Treatment Course - RADIOLOGY Radiology Studies Ordered: Category Date Time Status HEAD CT WITHOUT CONTRAST [CT] Stat CT Scan 12/20/19 12:50 Completed Medical Decision Making - Medical Decision Making 12/20/19 14:34 No symptoms status post hitting her face on the nightstand dried blood in the nose which was controlled with direct pressure no gross neurologic deficits follow-up with primary care physician CAT scans are negative of the facial bones and head Discharge - Discharge Information Problems reviewed: Yes Clinical Impression/Diagnosis: Facial pain, acute Condition: Stable Disposition: HOME - Admission No - Follow up/Referral Referrals: Dena Frank MD [Staff Physician] - - Patient Discharge Instructions Additional Instructions: Return to the emergency room for worsening symptoms and without fail follow-up with your primary care physician in 1 to 2 days for further evaluation and treatment options. You may use Afrin nasal spray on a cottonball should you require more bleeding control in your nose. You may only do that twice a day. If you have further bleeding from your nose and that is uncontrolled with the Afrin on a cottonball return to the emergency room. - Post Discharge Activity
[2019-12-20] MEDS ORDERED: OXYMETAZOLINE 0.05% NASAL SOLUTION 15 ML BOTTLE NS PRN (14:48)
== END 2019-12-20 15:21 | disposition home or self-care (01) ==
LOC: JERFT 12:24
DX: G50.1 Atypical facial pain (principal); W18.39XA Other fall on same level, initial encounter; Y93.89 Activity, other specified; Y92.89 Other specified places as the place of occurrence of the external cause; Z88.8 Allergy status to other drugs, medicaments and biological substances; Z88.0 Allergy status to penicillin; Z88.2 Allergy status to sulfonamides; E11.9 Type 2 diabetes mellitus without complications; I10 Essential (primary) hypertension; E78.5 Hyperlipidemia, unspecified
CPT/HCPCS: 70450-TC; 70486-TC; 99281-25